=== PATIENT | male | born 1940 | race Caucasian/White ===

== ENCOUNTER 2017-06-05 12:02 | Inpatient (IN) ==
--- NOTE | 2017-06-05 12:21 | Emergency Department Note ---
Disposition Clinical Impression: Septic shock Pneumonia Qualifiers: Pneumonia type: due to unspecified organism Laterality: unspecified laterality Lung location: unspecified part of lung Qualified Code(s): J18.9 - Pneumonia, unspecified organism Disposition: Admitted As Inpatient Condition: Critical [facility]: [facility]Primary Care Provider[facility] - Forms: ED Satisfaction Letter Altered Mental Status HPI - General Chief Complaint: ED Weakness Stated Complaint: "family said unresponsive" Source: patient Mode of arrival: ambulatory Limitations: no limitations Nursing Notes Reviewed: Yes Vital Signs Reviewed: Yes - History of Present Illness HPI Narrative: Patient's brother provided the initial history states his brother seemed a little confused last night and went to bed when he awoke this morning a person lives with them went to check on his brother and had trouble waking him up so they called 911. On arrival the patient really cannot give us any information. MD complaint: altered mental status, decreased responsiveness - Related Data Allergies Allergy/AdvReac Type Severity Reaction Status Date / Time No Known Allergies Allergy Verified 04/13/17 17:45 Limitations: ROS unobtainable due to patients medical condition Past Medical History - Past Medical History Medical history: Reports: atrial fibrillation, hyperlipidemia, hypertension Psychiatric history: Reports: no psych history - Social History Smoking Status: Never smoker Smokeless Tobacco Status: No Alcohol use: Reports: occasionally Drug use: Reports: none Physical Exam - Expanded Neurological Exam Coma Scale Eye Opening: To Voice Coma Scale Motor Response: Localizes to Pain Coma Scale Verbal Response: Inappropriate Coma Scale Total: 11 Course - Reevaluation(s) Reevaluation #1: Now awake and alert I asked him how he was feeling he states "I am alive" with a little giggle. He is now answering questions talked about the workup thus for far I told him he would need hospitalization he states he was not happy about this. He is answering questions besides feeling weak he does not have any acute complaints denies any chest pain nausea or abdominal pain. Time: 14:36 Reevaluation #2: Reevaluation patient is now normotensive map greater than 65 normal mental status he is alert and oriented 3 normal capillary refill nondiaphoretic pleasant cooperative overall status much improved. Time: 15:25 Vital Signs Temperature 97.6 F 06/05/17 12:08 Pulse Rate 62 06/05/17 12:08 Respiratory Rate 16 06/05/17 12:08 Blood Pressure 73/46 06/05/17 12:08 O2 Sat by Pulse Oximetry 94 06/05/17 12:08 Temperature 97.6 F 06/05/17 12:08 Pulse Rate 79 06/05/17 15:00 Respiratory Rate 16 06/05/17 15:00 Blood Pressure 89/51 06/05/17 15:00 O2 Sat by Pulse Oximetry 95 06/05/17 15:00 Oxygen Delivery Oxygen Delivery Room Air Procedures - Central Line Placement Right IJ Central Line Inserted*: Yes Central Line Insertion: emergent Procedural Pause: verify patient name and date of , timeout performed per policy, arturo and assess the site, assemble equipment and verify supplies, perform hand hygiene Patient Placed on Monitor/Pulse Ox: Yes During the Procedure: clinician is wearing sterile gloves, cap, mask,& gown during insertion, sterile field and sterile technique are maintained, patient's face is covered with drape or mask and wearing a cap, everyone in room is wearing a mask Central Line Prep: Chlorhexidine scrub Prep the Procedure Site: apply chloraprep to the skin using a back and forth scrubbing motion, apply chloraprep for 30 seconds (upper body), 1-2 min ( femoral sites), allow prep to dry, drape the patient with a full body drape Local Anesthetic: lidocaine 1% Amount of anesthesia used (mL): 5 Ultrasound Used for Placement: Yes Central Line Lumen Inserted: triple Post Procedure: sutured in place, good blood return, all ports aspirated, flushed, capped, sterile dressing applied, guide wire removed and visualized, dressing is dated Post Procedure X-Ray: tip of catheter in good position, no pneumothorax seen Patient Tolerated Procedure: well, no complications Complications: none Date: 06/05/17 Time: 14:41 Altered Mental Status - Lab Data Result diagrams: 06/05/17 13:16 06/05/17 12:32 Lab Results 06/05/17 06/05/17 06/05/17 Range/Units 12:32 12:32 12:32 WBC (4.3-11.1) K/mcL RBC (4.19-5.50) M/mcL Hgb (12.9-16.9) g/dL Hct (37.5-50.1) % MCV (83.0-100.0) fL MCH (28.0-33.3) pg MCHC (31.6-35.5) g/dL RDW (11.5-14.5) % Plt Count (140-400) K/mcL MPV (9.4-12.4) fL Immature Gran % (0-4) % Seg Neutrophils % % Lymphocytes % % Monocytes % % Eosinophils % % Basophils % % Neutrophils # (1.6-8.9) K/mcL Lymphocytes # (0.6-4.6) K/mcL Monocytes # (0.0-1.3) K/mcL Eosinophils # (0.0-0.6) K/mcL Basophils # (0.0-0.2) K/mcL PT 11.3 (9.4-12.1) Seconds INR 1.0 APTT 29.4 (26.0-36.0) Seconds Sodium 134 L (136-145) mEq/L Potassium 4.9 H (3.5-4.5) mEq/L Chloride 100 (98-109) mEq/L Carbon Dioxide 25 (19-29) mEq/L BUN 26 (8-26) mg/dL Creatinine 1.81 H (0.72-1.25) mg/dL Est GFR ( Amer) 44 L (> 60) Est GFR (Non-Af Amer) 37 L (> 60) BUN/Creatinine Ratio 14 (6-26) Glucose 233 H (70-99) mg/dL Calculated Osmolality 290 (280-300) Lactic Acid 2.6 H (0.5-2.2) mmol/L Calcium 9.5 (8.6-10.8) mg/dL Magnesium 2.0 (1.6-2.6) mg/dL Total Bilirubin 1.1 (0.2-1.2) mg/dL Direct Bilirubin 0.3 (0.0-0.5) mg/dL Indirect Bilirubin 0.8 (0.0-1.2) mg/dL AST 79 H (5-34) Units/L ALT 88 H (0-55) Units/L Alkaline Phosphatase 114 (38-126) Units/L Troponin I (0-0.03) ng/mL Serum Total Protein 8.3 (6.0-8.3) g/dL Albumin 3.4 L (3.5-5.0) g/dL Globulin 4.9 H (2.4-3.5) g/dL Albumin/Globulin Ratio 0.7 L (1.1-2.2) Urine Color (Yellow) Urine Clarity (Clear) Urine pH (5.0-8.0) pH Units Ur Specific [place] (1.010-1.025) Urine Protein (Neg-Trace) mg/dL Urine Glucose (UA) (Normal) mg/dL Urine Ketones (Negative) mg/dL Urine Blood (Negative) Urine Nitrite (Negative) Urine Bilirubin (Negative) Urine Urobilinogen (Normal) mg/dL Ur Leukocyte Esterase (Negative) Urine Microscopic RBC (0-3) per hpf Urine Microscopic WBC (0-3) per hpf Ur Squamous Epith Cells (None-Few) per lpf Ur Transition Epith Cell (None-Few) per hpf Ur Renal Epithelial Cell (None-Few) per hpf Urine Bacteria (None-Few) per hpf Hyaline Casts (None-Few) per lpf Ur Culture Indicated? (NO) 06/05/17 06/05/17 06/05/17 Range/Units 13:16 13:30 14:17 WBC 6.5 (4.3-11.1) K/mcL RBC 4.74 (4.19-5.50) M/mcL Hgb 15.0 (12.9-16.9) g/dL Hct 43.6 (37.5-50.1) % MCV 92.0 (83.0-100.0) fL MCH 31.6 (28.0-33.3) pg MCHC 34.4 (31.6-35.5) g/dL RDW 13.0 (11.5-14.5) % Plt Count 125 L (140-400) K/mcL MPV 10.5 (9.4-12.4) fL Immature Gran % 1.2 (0-4) % Seg Neutrophils % 60.8 % Lymphocytes % 26.9 % Monocytes % 9.4 % Eosinophils % 0.8 % Basophils % 0.9 % Neutrophils # 4.0 (1.6-8.9) K/mcL Lymphocytes # 1.8 (0.6-4.6) K/mcL Monocytes # 0.6 (0.0-1.3) K/mcL Eosinophils # 0.1 (0.0-0.6) K/mcL Basophils # 0.1 (0.0-0.2) K/mcL PT (9.4-12.1) Seconds INR APTT (26.0-36.0) Seconds Sodium (136-145) mEq/L Potassium (3.5-4.5) mEq/L Chloride (98-109) mEq/L Carbon Dioxide (19-29) mEq/L BUN (8-26) mg/dL Creatinine (0.72-1.25) mg/dL Est GFR ( Amer) (> 60) Est GFR (Non-Af Amer) (> 60) BUN/Creatinine Ratio (6-26) Glucose (70-99) mg/dL Calculated Osmolality (280-300) Lactic Acid 2.3 H (0.5-2.2) mmol/L Calcium (8.6-10.8) mg/dL Magnesium (1.6-2.6) mg/dL Total Bilirubin (0.2-1.2) mg/dL Direct Bilirubin (0.0-0.5) mg/dL Indirect Bilirubin (0.0-1.2) mg/dL AST (5-34) Units/L ALT (0-55) Units/L Alkaline Phosphatase (38-126) Units/L Troponin I (0-0.03) ng/mL Serum Total Protein (6.0-8.3) g/dL Albumin (3.5-5.0) g/dL Globulin (2.4-3.5) g/dL Albumin/Globulin Ratio (1.1-2.2) Urine Color Yellow (Yellow) Urine Clarity Clear (Clear) Urine pH 6.0 (5.0-8.0) pH Units Ur Specific [place] 1.018 (1.010-1.025) Urine Protein 100 H (Neg-Trace) mg/dL Urine Glucose (UA) 250 H (Normal) mg/dL Urine Ketones Negative (Negative) mg/dL Urine Blood Small H (Negative) Urine Nitrite Negative (Negative) Urine Bilirubin Negative (Negative) Urine Urobilinogen Normal (Normal) mg/dL Ur Leukocyte Esterase Negative (Negative) Urine Microscopic RBC 15-30 H (0-3) per hpf Urine Microscopic WBC 0-3 (0-3) per hpf Ur Squamous Epith Cells Many H (None-Few) per lpf Ur Transition Epith Cell Few (None-Few) per hpf Ur Renal Epithelial Cell Many H (None-Few) per hpf Urine Bacteria None Seen (None-Few) per hpf Hyaline Casts Few (None-Few) per lpf Ur Culture Indicated? NO (NO) 06/05/17 Range/Units 14:17 WBC (4.3-11.1) K/mcL RBC (4.19-5.50) M/mcL Hgb (12.9-16.9) g/dL Hct (37.5-50.1) % MCV (83.0-100.0) fL MCH (28.0-33.3) pg MCHC (31.6-35.5) g/dL RDW (11.5-14.5) % Plt Count (140-400) K/mcL MPV (9.4-12.4) fL Immature Gran % (0-4) % Seg Neutrophils % % Lymphocytes % % Monocytes % % Eosinophils % % Basophils % % Neutrophils # (1.6-8.9) K/mcL Lymphocytes # (0.6-4.6) K/mcL Monocytes # (0.0-1.3) K/mcL Eosinophils # (0.0-0.6) K/mcL Basophils # (0.0-0.2) K/mcL PT (9.4-12.1) Seconds INR APTT (26.0-36.0) Seconds Sodium (136-145) mEq/L Potassium (3.5-4.5) mEq/L Chloride (98-109) mEq/L Carbon Dioxide (19-29) mEq/L BUN (8-26) mg/dL Creatinine (0.72-1.25) mg/dL Est GFR ( Amer) (> 60) Est GFR (Non-Af Amer) (> 60) BUN/Creatinine Ratio (6-26) Glucose (70-99) mg/dL Calculated Osmolality (280-300) Lactic Acid (0.5-2.2) mmol/L Calcium (8.6-10.8) mg/dL Magnesium (1.6-2.6) mg/dL Total Bilirubin (0.2-1.2) mg/dL Direct Bilirubin (0.0-0.5) mg/dL Indirect Bilirubin (0.0-1.2) mg/dL AST (5-34) Units/L ALT (0-55) Units/L Alkaline Phosphatase (38-126) Units/L Troponin I 0.03 (0-0.03) ng/mL Serum Total Protein (6.0-8.3) g/dL Albumin (3.5-5.0) g/dL Globulin (2.4-3.5) g/dL Albumin/Globulin Ratio (1.1-2.2) Urine Color (Yellow) Urine Clarity (Clear) Urine pH (5.0-8.0) pH Units Ur Specific [place] (1.010-1.025) Urine Protein (Neg-Trace) mg/dL Urine Glucose (UA) (Normal) mg/dL Urine Ketones (Negative) mg/dL Urine Blood (Negative) Urine Nitrite (Negative) Urine Bilirubin (Negative) Urine Urobilinogen (Normal) mg/dL Ur Leukocyte Esterase (Negative) Urine Microscopic RBC (0-3) per hpf Urine Microscopic WBC (0-3) per hpf Ur Squamous Epith Cells (None-Few) per lpf Ur Transition Epith Cell (None-Few) per hpf Ur Renal Epithelial Cell (None-Few) per hpf Urine Bacteria (None-Few) per hpf Hyaline Casts (None-Few) per lpf Ur Culture Indicated? (NO) TPA Checklist - LKW: 3-4.5 hrs Add. Warnings/Precautions Patient/family understanding: The patient/family members have been counseled and understood the risk, benefit , and alternatives of treatment. Critical Care Time Critical Care Time: Yes Total Critical Care Time: 50 Attestation: Critical care performed: Time is exclusive of separately billable procedures. Time includes: direct patient care, patient reassessment, coordination of patient care, interpretation of data (laboratory data, radiology data, and respiratory data), review of patient's medical records, medical consultation and documentation of patient care. Procedures included in critical care time: Procedures excluded from critical care time:
[2017-06-05 12:48] LABS: Prothrombin Time 11.3 Seconds (9.4-12.1)
[2017-06-05 12:51] LABS: Activated Partial Thrombo Time 29.4 Seconds (26.0-36.0)
[2017-06-05 12:56] LABS: Albumin 3.4 g/dL (3.5-5.0); Albumin/Globulin Ratio 0.7 (1.1-2.2); Bilirubin,Direct 0.3 mg/dL (0.0-0.5); Bilirubin,Indirect 0.8 mg/dL (0.0-1.2); Bilirubin,Total 1.1 mg/dL (0.2-1.2); Calcium 9.5 mg/dL (8.6-10.8); Globulin 4.9 g/dL (2.4-3.5); Total Protein 8.3 g/dL (6.0-8.3)
[2017-06-05 12:57] LABS: Potassium 4.9 mEq/L (3.5-4.5)
[2017-06-05] MEDS: 0.9 % Sodium Chloride 1,000 ML IVC SCH ×4 (13:05→18:39)
[2017-06-05 13:38] LABS: Bilirubin,Urine Negative (Negative); Blood,Urine Small (Negative); Clarity,Urine Clear (Clear); Color,Urine Yellow (Yellow); Glucose,Urine (UA) 250 mg/dL (Normal); Ketones,Urine Negative (Negative); Leukocyte Esterase,Urine Negative (Negative); Nitrite,Urine Negative (Negative); Protein,Urine 100 mg/dL (Neg-Trace); Specific Gravity,Urine 1.018 (1.010-1.025); Urobilinogen,Urine Normal (Normal)
[2017-06-05 13:40] LABS: Bacteria,Urine None Seen per hpf (None-Few); Squamous Epithelial Cell,Urine Many per lpf (None-Few); WBC,Urine 0-3 per hpf (0-3)
[2017-06-05 13:42] LABS: Basophils # 0.1 K/mcL (0.0-0.2); Basophils % 0.9 %; Eosinophils # 0.1 K/mcL (0.0-0.6); Eosinophils % 0.8 %; Hematocrit 43.6 % (37.5-50.1); Immature Granulocytes % 1.2 % (0-4); Lymphocytes # 1.8 K/mcL (0.6-4.6); Lymphocytes % 26.9 %; Mean Corpuscular HGB Conc 34.4 g/dL (31.6-35.5); Mean Corpuscular Hemoglobin 31.6 pg (28.0-33.3); Mean Platelet Volume 10.5 fL (9.4-12.4); Monocytes # 0.6 K/mcL (0.0-1.3); Monocytes % 9.4 %; Platelet Count 125 K/mcL (140-400); Red Blood Count 4.74 M/mcL (4.19-5.50); Segmented Neutrophils % 60.8 %
[2017-06-05 13:59] LABS: Renal Epithelial Cells,Urine Many per hpf (None-Few); Transitional Epi Cells,Urine Few per hpf (None-Few)
[2017-06-05 14:00] LABS: RBC,Urine 15-30 per hpf (0-3)
[2017-06-05 14:02] LABS: Hyaline Casts,Urine Few per lpf (None-Few)
[2017-06-05] MEDS ORDERED: Norepinephrine 4 MG in D5% in Water 250 ML IVC SCH (14:15)
[2017-06-05] MEDS ORDERED: Hydrocortisone Sodium Succ 100 MG/2 ML VIAL IVP ONE (14:19)
[2017-06-05] MEDS ORDERED: Levofloxacin 750 MG/150 ML 750 MG/150 ML BAG IVPB ONE (14:28)
[2017-06-05] MEDS ORDERED: 0.9 % Sodium Chloride 1,000 ML IVC ONE (14:53)
[2017-06-05] MEDS ORDERED: *HR* Morphine 2 MG/ML SYRINGE IVP PRN (17:17)
[2017-06-05] MEDS ORDERED: *HR* HYDROcodone/Acet 5/325 mg TABLET PO PRN (17:17)
[2017-06-05] MEDS ORDERED: Naloxone 0.4 MG/ML INJ IVP PRN (17:17)
[2017-06-05] MEDS ORDERED: Acetaminophen 325 MG TABLET PO PRN (17:17)
[2017-06-05] MEDS ORDERED: Ondansetron 4 MG/2 ML VIAL IVP PRN (17:17)
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
[2017-06-05] MEDS ORDERED: D5% in Water 1,000 ML IVC PRN (17:59)
[2017-06-05] MEDS ORDERED: Dextrose Gel 15 GM PO PRN ×2 (17:59)
[2017-06-05] MEDS ORDERED: *HR* Dextrose 50 % in Water (Syg) 50 ML SYRINGE IVP PRN (17:59)
[2017-06-05] MEDS: Insulin LISPRO 300 UNITS/3 ML VIAL SQ SCH (18:32)
[2017-06-05] MEDS: Ipratropium/Albuterol Neb 3 ML IH SCH ×2 (20:06→23:42)
[2017-06-05 20:15] LABS: Amphetamine Screen,Urine Negative ng/mL (Cutoff=1000); Barbiturate Screen,Urine Negative ng/mL (Cutoff=200); Benzodiazepines Screen,Urine Negative ng/mL (Cutoff=200); Cannabinoid Screen,Urine Negative ng/mL (Cutoff = 50); Cocaine Screen,Urine Negative ng/mL (Cutoff= 300); Opiate Screen,Urine Negative ng/mL (Cutoff=300); Phencyclidine Screen,Urine Negative ng/mL (Cutoff=25)
[2017-06-05 20:22] LABS: Bilirubin,Urine Negative (Negative); Blood,Urine Large (Negative); Clarity,Urine Cloudy (Clear); Color,Urine Yellow (Yellow); Glucose,Urine (UA) 250 mg/dL (Normal); Ketones,Urine Negative (Negative); Leukocyte Esterase,Urine Negative (Negative); Nitrite,Urine Negative (Negative); Protein,Urine >=300 mg/dL (Neg-Trace); Specific Gravity,Urine 1.025 (1.010-1.025); Urobilinogen,Urine Normal (Normal)
[2017-06-05] MEDS ORDERED: Insulin LISPRO 300 UNITS/3 ML VIAL SQ SCH (21:00)
[2017-06-06] MEDS: Ipratropium/Albuterol Neb 3 ML IH SCH ×3 (03:43→11:12)
[2017-06-06] MEDS: 0.9 % Sodium Chloride 1,000 ML IVC SCH (05:14)
[2017-06-06] MEDS: Insulin LISPRO 300 UNITS/3 ML VIAL SQ SCH (07:29)
[2017-06-06] MEDS ORDERED: *HR* Digoxin 0.5 MG/2 ML AMPUL IVP ONE (08:57)
[2017-06-06] MEDS ORDERED: Cholecalciferol (D-3) 1,000 UNIT TABLET PO SCH (09:00)
[2017-06-06] MEDS ORDERED: Pantoprazole 40 MG VIAL IVP SCH (09:00)
[2017-06-06] MEDS ORDERED: Aspirin Enteric Coated 81 MG Tablet PO SCH (09:00)
[2017-06-06 09:46] LABS: Albumin 2.9 g/dL (3.5-5.0); Albumin/Globulin Ratio 0.8 (1.1-2.2); Basophils % 0.4 %; Bilirubin,Direct 0.3 mg/dL (0.0-0.5); Bilirubin,Indirect 0.4 mg/dL (0.0-1.2); Bilirubin,Total 0.7 mg/dL (0.2-1.2); Eosinophils # 0.1 K/mcL (0.0-0.6); Eosinophils % 0.6 %; Globulin 3.7 g/dL (2.4-3.5); Hemoglobin A1C 9.2 %; Immature Granulocytes % 1.1 % (0-4); Lymphocytes # 1.9 K/mcL (0.6-4.6); Lymphocytes % 22.7 %; Mean Corpuscular HGB Conc 34.1 g/dL (31.6-35.5); Mean Corpuscular Hemoglobin 31.8 pg (28.0-33.3); Mean Corpuscular Volume 93.2 fL (83.0-100.0); Mean Platelet Volume 10.7 fL (9.4-12.4); Monocytes # 0.6 K/mcL (0.0-1.3); Monocytes % 7.9 %; Neutrophils # 5.5 K/mcL (1.6-8.9); Platelet Count 131 K/mcL (140-400); Red Blood Count 4.72 M/mcL (4.19-5.50); Red Cell Distribution Width 13.2 % (11.5-14.5); Segmented Neutrophils % 67.3 %
[2017-06-06 09:47] LABS: Calcium 8.5 mg/dL (8.6-10.8); Chol/HDL Ratio 6.2 (0-4.9); Magnesium 1.5 mg/dL (1.6-2.6); Total Protein 6.6 g/dL (6.0-8.3)
[2017-06-06 09:48] LABS: Potassium 3.6 mEq/L (3.5-4.5)
[2017-06-06 11:29] VITALS: BP 105/75
--- NOTE | 2017-06-06 14:46 | Electrocardiograph Report ---
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
--- NOTE | 2017-06-06 15:45 | Electrocardiograph Report ---
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
[2017-06-06] MEDS ORDERED: Levofloxacin 750 MG/150 ML 750 MG/150 ML BAG IVPB SCH (16:00)
--- NOTE | 2017-06-06 19:19 | Discharge Summary ---
Date of Encounter: 06/06/17 Time of Encounter: 10:25 - Discharge Diagnosis (1) Atrial fibrillation with RVR Priority: Primary Status: Acute Comments: IV 0.25 mg digoxin - blood pressure too low for IV Cardizem EKG - atrial fibrillation with RVR Patient left AGAINST MEDICAL ADVICE before any further evaluation or management (2) Pneumonia Priority: Primary Status: Acute Comments: Bilateral airspace disease compatible with mild edema and pneumonia Started on IV Rocephin and IV Levaquin and DuoNeb breathing treatment Qualifiers: Pneumonia type: due to unspecified organism Laterality: unspecified laterality Lung location: unspecified part of lung Qualified Code(s): J18.9 - Pneumonia, unspecified organism (3) Septic shock Priority: Primary Status: Acute Comments: Blood pressure continues to be low likely secondary to sepsis due to pneumonia - IV fluids continued The patient left AGAINST MEDICAL ADVICE even though he was hypotensive - Discharge Medications Home Medications: Aspirin Enteric Coated [Aspirin EC] 81 mg PO BID 06/05/17 [History] Atorvastatin [Lipitor] 10 mg PO HS 06/05/17 [History] Cholecalciferol (D-3) [Vitamin D] 2,000 unit PO DAILY 06/05/17 [History] GlipiZIDE [Glipizide Xl] 5 BID 06/05/17 [History] Lidocaine 4% CRM (LMX) [Lmx 4] 1 appl TP BID 06/05/17 [History] Lisinopril [Zestril] 10 mg PO DAILY 06/05/17 [History] Metformin HCl [Glucophage Xr] 750 mg PO DAILY 06/05/17 [History] Metoprolol [Lopressor] 25 mg PO BID 06/05/17 [History] Terazosin [Hytrin] 1 mg PO DAILY 06/05/17 [History] Allergies/Adverse Reactions: IV Contrast Adverse Reaction (Uncoded 06/05/17 18:35) Anaphylaxis Procedures/tests Complete & Pending: Procedures Performed prior 72 hours Category Date Time Status CT head/brain wo con [CT] Stat Cat Scan 06/05/17 18:32 Completed ECG 12 lead ECG [ECG] Routine Y 06/06/17 08:45 Completed EV limited echocardiogram Routine Y 06/06/17 08:00 Completed Date of admission: 06/05/17 17:17 [facility] care physician: [facility] Consults: 06/05/17 18:31 Consult to Polysomnograph Tech [CONS] Routine Reason for SW Consult: discharge planning Anticipated date of discharge: 06/06/17 - Patient Status Disposition: Left Against Medical Advice Condition: Critical Overall status at discharge: patient is not back to baseline - Discharge Instructions Follow Up With: HAO,PCP [Primary Care Provider] - 06/12/17 11:00 am - Diet and Activity Activity: increase activity as tolerated Diet: low fat, low cholesterol, low salt diet Hospital course: Mr. Subramanian is a 76 year old male with past medical history of atrial fibrillation , hyperlipidemia, hypertension. He presented to the ED with complaints of generalized weakness and altered mental status. He was brought in by family stating he was unresponsive. Patient was confused initially when he was in the ED. He was found to have some pulmonary edema and also probable pneumonia. We will start on IV antibiotics. He was also started on IV fluids because of hypotension. A central line was placed. He was given fluid boluses as well. Central line had to be eventually taken out because it was out of position. Peripheral line was established. 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 Echocardiogram could not accurately estimate LVEF due to A. fib with RVR. Patient was given 1 dose of IV 0.25 mg digoxin for A. fib with RVR. His blood pressure was too low for IV Cardizem. Patient then stated that he wanted to leave AGAINST MEDICAL ADVICE. He wanted to go and see his physicians at the [place]. Patient was explained by RN and myself regarding his guarded condition and guarded prognosis. He stated that he understood but decided to sign out AMA. Patient called his family to pick him up. Guarded condition. - Time Spent with Patient Total time spent providing and/or coordinating discharge services: Less than 30 minutes - Constitutional Vitals: Temp Pulse Resp BP Pulse Ox 98.1 F 138 15 105/75 96 06/06/17 11:24 06/06/17 11:24 06/06/17 11:24 06/06/17 11:24 06/06/17 11:24 General appearance: Present: A&O X 3, pleasant, no acute distress, answers questions appropriately. Absent: cooperative - Head Head exam: Present: atraumatic - Eye Eye exam: Present: EOMI - ENT ENT exam: Present: mucous membranes dry - Neck Neck exam general surgery: Present: supple - Respiratory Respiratory exam: Present: decreased breath sounds (Slightly decreased). Absent : rales, rhonchi, wheezes, tachypnea - Cardiovascular Cardiovascular exam: Present: irregular rhythm, +S1, +S2, systolic murmur, tachycardia - GI/Abdominal GI/Abdominal exam: Present: soft. Absent: distended, firm, guarding, tenderness - Extremities Exam Extremities exam: Present: pedal edema (Mild bilateral lower leg), radial pulses palpable and symmetrical. Absent: cyanotic - Neurological Exam Neurological exam: Present: alert, oriented X3, no focal deficits. Absent: facial droop, speech deficit
== END 2017-06-06 12:24 | disposition left against medical advice (07) | DRG 871 ==
LOC: 2NNU 12:02 → EMEROO 12:02 → 2NNU 18:00
PROVIDERS: ADMIT Internal Medicine; ATTEND Family Medicine

== ENCOUNTER 2017-10-13 20:04 | Inpatient (IN) ==
[2017-10-13] MEDS ORDERED: 0.9 % Sodium Chloride 1,000 ML IVC ONE (20:11)
--- NOTE | 2017-10-13 20:18 | Emergency Department Note ---
Disposition Clinical Impression: Atrial fibrillation with RVR, Influenza Disposition: Admitted As Inpatient Condition: Good General Adult HPI - General Chief complaint: ED Arrhythmia/Palpitations Stated complaint: afib/RVR Time Seen by Provider: 10/13/17 20:11 Source: patient, EMS Mode of arrival: EMS Limitations: altered mental status Nursing Notes Reviewed: Yes Vital Signs Reviewed: Yes - History of Present Illness HPI Narrative: 77-year-old male history of atrial fibrillation on Eliquis, hypertension, hyperlipidemia, diabetes who presents to the ER via EMS from the [facility] due to weakness and atrial fibrillation with rapid ventricular response. Patient reports he has had a cough for 3 weeks. States he has felt weak. He went there today because of generalized weakness. He was found to be in A. fib RVR. He was given 20 mg of IV Cardizem without any change in his rate. Patient was sent here for evaluation. He denies any fevers nausea vomiting diarrhea chest or abdominal pain as well as shortness of breath at home. States he has had a cough. He has felt generally weak for several days. No other complaints. Pt Subjective Complaint: Weakness Onset (ago): day(s) Radiation: non-radiation Pain Scale: 0 Improves with: nothing Worsens with: nothing Associated symptoms: Reports: cough Treatments Prior to Arrival: other (cardizem 20mg) - Related Data Home Medications Medication Instructions Recorded Confirmed Aspirin Enteric Coated [Aspirin EC] 81 mg PO BID 06/05/17 06/05/17 Atorvastatin [Lipitor] 10 mg PO HS 06/05/17 06/05/17 Cholecalciferol (D-3) [Vitamin D] 2,000 unit PO DAILY 06/05/17 06/05/17 GlipiZIDE [Glipizide Xl] 5 BID 06/05/17 Lidocaine 4% CRM (LMX) [Lmx 4] 1 appl TP BID 06/05/17 06/05/17 Lisinopril [Zestril] 10 mg PO DAILY 06/05/17 06/05/17 Metformin HCl [Glucophage Xr] 750 mg PO DAILY 06/05/17 06/05/17 Metoprolol [Lopressor] 25 mg PO BID 06/05/17 06/05/17 Terazosin [Hytrin] 1 mg PO DAILY 06/05/17 06/05/17 Allergies Allergy/AdvReac Type Severity Reaction Status Date / Time IV Contrast AdvReac Anaphylaxis Uncoded 06/05/17 18:35 All systems ED: reviewed and negative except as stated. Constitutional: Denies: fever Cardiovascular: Reports: palpitations. Denies: chest pain Respiratory: Reports: cough. Denies: dyspnea Gastrointestinal: Denies: abdominal pain, nausea, vomiting, diarrhea Past Medical History - Past Medical History Attestation: Yes The following information was validated with the patient. Source: patient, old records reviewed Medical history: Reports: atrial fibrillation, diabetes, hyperlipidemia, hypertension, renal disease Psychiatric history: Reports: no psych history - Social History Smoking Status: Former smoker Smokeless Tobacco Status: No Alcohol use: Reports: occasionally Drug use: Reports: none Physical Exam - General Limitations: altered mental status General appearance: alert, obese - Head Head exam: atraumatic, normocephalic - Eye Eye exam: Present: normal appearance - ENT ENT exam: normal exam - Neck Neck exam: Present: normal inspection, full ROM - Chest Chest inspection: Present: normal inspection, symmetric chest wall rise - Respiratory Respiratory exam: Present: normal lung sounds bilaterally - Cardiovascular Cardiovascular exam: Present: tachycardia, irregular rhythm, normal heart sounds - Abdominal Exam Abdominal exam: Present: soft, Non-Tender. Absent: tenderness - Extremities Exam Extremities exam: Present: normal inspection, full ROM - Expanded Upper Extremity Exam Shoulder exam: Present: normal inspection, full ROM Arm exam: Present: normal inspection, full ROM Elbow exam: Present: normal inspection, full ROM Forearm/Wrist exam: Present: normal inspection, full ROM Hand exam: Present: normal inspection, full ROM Vascular exam: Normal: radial pulse - Expanded Lower Extremity Exam Hip/Pelvis exam: Present: normal inspection, full ROM Upper leg exam: Present: normal inspection, full ROM Knee exam: Present: normal inspection, full ROM Lower leg exam: Present: normal inspection, full ROM Ankle exam: Present: normal inspection, full ROM Foot/toe exam: Present: normal inspection, full ROM - Neurological Exam Neurological exam: Present: alert, CN II-XII intact. Absent: motor sensory deficit - Expanded Neurological Exam Patient oriented to: Present: person, place Speech: Present: fluid speech Cranial nerves: EOM function (II, III, IV, ): Normal, facial sensation (V): Normal, spinal accessory function (XI): Normal, tongue deviation (XII): Normal Motor strength - LUE: 5/5 Motor strength - RUE: 5/5 Motor strength - LLE: 5/5 Motor strength - RLE: 5/5 Sensory exam upper extremity: light touch: Normal Sensory exam lower extremity: light touch: Normal Coma Scale Eye Opening: Spontaneous Coma Scale Motor Response: Obeys Commands Coma Scale Verbal Response: Oriented Coma Scale Total: 15 - Psychiatric Psychiatric exam: Present: normal affect - Skin Skin exam: Present: warm, dry, intact Course Course Narrative: Patient seen and examined. Vital signs reviewed. He is noted to be tachycardic in the 160s and hypertensive. Also febrile at 101.8. He received 20 mg of Cardizem prior to arrival. We will repeat bolus here 25 mg as well as start a drip. We will also obtain an EKG, chest x-ray, labs including troponin , lactate and blood cultures as he meets sepsis criteria. - Reevaluation(s) Reevaluation #1: Patient's heart rate returned into the 130s. We increased his Cardizem drip to 20. He is currently running with a heart rate in the 80s. Vital Signs Temperature 101.8 F H 10/13/17 20:06 Pulse Rate 164 10/13/17 20:06 Respiratory Rate 20 10/13/17 20:06 Blood Pressure 179/119 10/13/17 20:06 O2 Sat by Pulse Oximetry 96 10/13/17 20:06 Temperature 100.4 F H 10/13/17 22:41 Pulse Rate 92 10/14/17 00:00 Respiratory Rate 16 10/14/17 00:18 Blood Pressure 139/71 10/14/17 00:18 O2 Sat by Pulse Oximetry 90 10/14/17 00:00 Oxygen Delivery Oxygen Delivery Room Air Medical Decision Making - MDM Narrative Medical decision making narrative: 77-year-old male presents to the ER from the [facility] due to A. fib RVR and generalized weakness. Noted to be with a heart rate of 160s here with a stable blood pressure. Also found to be febrile on arrival. He is positive for influenza A. EKG demonstrates atrial fibrillation with rapid ventricular response. Chest x-ray with pulmonary vascular congestion and cardiomegaly. He was given Cardizem 25 mg and started on a Cardizem drip. Labs reviewed and unremarkable. He is accepted to the hospitalist service for influenza, atrial fibrillation with rapid ventricular response. - Lab Data Lab results reviewed: Yes I reviewed the patient's lab results. Result diagrams: 10/13/17 20:20 10/13/17 20:20 Lab Results 10/13/17 10/13/17 10/13/17 Range/Units 20:20 20:20 20:20 WBC 7.9 (4.3-11.1) K/mcL RBC 5.02 (4.19-5.50) M/mcL Hgb 16.2 (12.9-16.9) g/dL Hct 46.2 (37.5-50.1) % MCV 92.0 (83.0-100.0) fL MCH 32.3 (28.0-33.3) pg MCHC 35.1 (31.6-35.5) g/dL RDW 13.7 (11.5-14.5) % Plt Count 183 (140-400) K/mcL MPV 10.2 (9.4-12.4) fL Immature Gran % 1.0 (0-4) % Seg Neutrophils % 78.7 % Lymphocytes % 10.8 % Monocytes % 8.3 % Eosinophils % 0.4 % Basophils % 0.8 % Neutrophils # 6.3 (1.6-8.9) K/mcL Lymphocytes # 0.9 (0.6-4.6) K/mcL Monocytes # 0.7 (0.0-1.3) K/mcL Eosinophils # 0.0 (0.0-0.6) K/mcL Basophils # 0.1 (0.0-0.2) K/mcL PT 12.1 (9.4-12.1) Seconds INR 1.1 APTT 32.3 (26.0-36.0) Seconds Sodium 137 (136-145) mEq/L Potassium 3.4 L (3.5-5.1) mEq/L Chloride 106 (98-107) mEq/L Carbon Dioxide 21 L (23-29) mEq/L BUN 14 (8-23) mg/dL Creatinine 1.00 (0.70-1.30) mg/dL Est GFR ( Amer) > 60 (> 60) Est GFR (Non-Af Amer) > 60 (> 60) BUN/Creatinine Ratio 14 (6-26) Glucose 180 H (70-105) mg/dL Calculated Osmolality 289 (280-300) Lactic Acid (0.5-2.2) mmol/L Calcium 8.8 (8.6-10.3) mg/dL Phosphorus 1.9 L (2.7-4.5) mg/dL Magnesium 1.3 L (1.6-2.6) mg/dL Total Bilirubin 0.9 (0.3-1.0) mg/dL Direct Bilirubin 0.3 H (0.0-0.2) mg/dL Indirect Bilirubin 0.6 (0.0-1.2) mg/dL AST 96 H (13-39) Units/L ALT 75 H (7-52) Units/L Alkaline Phosphatase 85 (34-104) Units/L Troponin I (< 0.04) ng/mL B-Natriuretic Peptide (Less than 100) pg/mL Serum Total Protein 7.1 (6.4-8.9) g/dL Albumin 3.8 (3.5-5.7) g/dL Globulin 3.3 (2.4-3.5) g/dL Albumin/Globulin Ratio 1.2 (1.1-2.2) Urine Color (Yellow) Urine Clarity (Clear) Urine pH (5.0-8.0) pH Units Ur Specific [place] (1.010-1.025) Urine Protein (Neg-Trace) mg/dL Urine Glucose (UA) (Normal) mg/dL Urine Ketones (Negative) mg/dL Urine Blood (Negative) Urine Nitrite (Negative) Urine Bilirubin (Negative) Urine Urobilinogen (Normal) mg/dL Ur Leukocyte Esterase (Negative) Urine Microscopic RBC (0-3) per hpf Urine Microscopic WBC (0-3) per hpf Ur Squamous Epith Cells (None-Few) per lpf Ur Renal Epithelial Cell (None-Few) per hpf Amorphous Sediment (Few) Urine Bacteria (None-Few) per hpf Hyaline Casts (None-Few) per lpf Ur Culture Indicated? (NO) 10/13/17 10/13/17 10/13/17 Range/Units 20:20 20:20 20:20 WBC (4.3-11.1) K/mcL RBC (4.19-5.50) M/mcL Hgb (12.9-16.9) g/dL Hct (37.5-50.1) % MCV (83.0-100.0) fL MCH (28.0-33.3) pg MCHC (31.6-35.5) g/dL RDW (11.5-14.5) % Plt Count (140-400) K/mcL MPV (9.4-12.4) fL Immature Gran % (0-4) % Seg Neutrophils % % Lymphocytes % % Monocytes % % Eosinophils % % Basophils % % Neutrophils # (1.6-8.9) K/mcL Lymphocytes # (0.6-4.6) K/mcL Monocytes # (0.0-1.3) K/mcL Eosinophils # (0.0-0.6) K/mcL Basophils # (0.0-0.2) K/mcL PT (9.4-12.1) Seconds INR APTT (26.0-36.0) Seconds Sodium (136-145) mEq/L Potassium (3.5-5.1) mEq/L Chloride (98-107) mEq/L Carbon Dioxide (23-29) mEq/L BUN (8-23) mg/dL Creatinine (0.70-1.30) mg/dL Est GFR ( Amer) (> 60) Est GFR (Non-Af Amer) (> 60) BUN/Creatinine Ratio (6-26) Glucose (70-105) mg/dL Calculated Osmolality (280-300) Lactic Acid 1.8 (0.5-2.2) mmol/L Calcium (8.6-10.3) mg/dL Phosphorus (2.7-4.5) mg/dL Magnesium (1.6-2.6) mg/dL Total Bilirubin (0.3-1.0) mg/dL Direct Bilirubin (0.0-0.2) mg/dL Indirect Bilirubin (0.0-1.2) mg/dL AST (13-39) Units/L ALT (7-52) Units/L Alkaline Phosphatase (34-104) Units/L Troponin I < 0.03 (< 0.04) ng/mL B-Natriuretic Peptide 137 H (Less than 100) pg/mL Serum Total Protein (6.4-8.9) g/dL Albumin (3.5-5.7) g/dL Globulin (2.4-3.5) g/dL Albumin/Globulin Ratio (1.1-2.2) Urine Color (Yellow) Urine Clarity (Clear) Urine pH (5.0-8.0) pH Units Ur Specific [place] (1.010-1.025) Urine Protein (Neg-Trace) mg/dL Urine Glucose (UA) (Normal) mg/dL Urine Ketones (Negative) mg/dL Urine Blood (Negative) Urine Nitrite (Negative) Urine Bilirubin (Negative) Urine Urobilinogen (Normal) mg/dL Ur Leukocyte Esterase (Negative) Urine Microscopic RBC (0-3) per hpf Urine Microscopic WBC (0-3) per hpf Ur Squamous Epith Cells (None-Few) per lpf Ur Renal Epithelial Cell (None-Few) per hpf Amorphous Sediment (Few) Urine Bacteria (None-Few) per hpf Hyaline Casts (None-Few) per lpf Ur Culture Indicated? (NO) 10/13/17 Range/Units 20:40 WBC (4.3-11.1) K/mcL RBC (4.19-5.50) M/mcL Hgb (12.9-16.9) g/dL Hct (37.5-50.1) % MCV (83.0-100.0) fL MCH (28.0-33.3) pg MCHC (31.6-35.5) g/dL RDW (11.5-14.5) % Plt Count (140-400) K/mcL MPV (9.4-12.4) fL Immature Gran % (0-4) % Seg Neutrophils % % Lymphocytes % % Monocytes % % Eosinophils % % Basophils % % Neutrophils # (1.6-8.9) K/mcL Lymphocytes # (0.6-4.6) K/mcL Monocytes # (0.0-1.3) K/mcL Eosinophils # (0.0-0.6) K/mcL Basophils # (0.0-0.2) K/mcL PT (9.4-12.1) Seconds INR APTT (26.0-36.0) Seconds Sodium (136-145) mEq/L Potassium (3.5-5.1) mEq/L Chloride (98-107) mEq/L Carbon Dioxide (23-29) mEq/L BUN (8-23) mg/dL Creatinine (0.70-1.30) mg/dL Est GFR ( Amer) (> 60) Est GFR (Non-Af Amer) (> 60) BUN/Creatinine Ratio (6-26) Glucose (70-105) mg/dL Calculated Osmolality (280-300) Lactic Acid (0.5-2.2) mmol/L Calcium (8.6-10.3) mg/dL Phosphorus (2.7-4.5) mg/dL Magnesium (1.6-2.6) mg/dL Total Bilirubin (0.3-1.0) mg/dL Direct Bilirubin (0.0-0.2) mg/dL Indirect Bilirubin (0.0-1.2) mg/dL AST (13-39) Units/L ALT (7-52) Units/L Alkaline Phosphatase (34-104) Units/L Troponin I (< 0.04) ng/mL B-Natriuretic Peptide (Less than 100) pg/mL Serum Total Protein (6.4-8.9) g/dL Albumin (3.5-5.7) g/dL Globulin (2.4-3.5) g/dL Albumin/Globulin Ratio (1.1-2.2) Urine Color Yellow (Yellow) Urine Clarity Cloudy A (Clear) Urine pH 5.5 (5.0-8.0) pH Units Ur Specific [place] 1.023 (1.010-1.025) Urine Protein >=300 H (Neg-Trace) mg/dL Urine Glucose (UA) 250 H (Normal) mg/dL Urine Ketones Negative (Negative) mg/dL Urine Blood Small H (Negative) Urine Nitrite Negative (Negative) Urine Bilirubin Negative (Negative) Urine Urobilinogen Normal (Normal) mg/dL Ur Leukocyte Esterase Negative (Negative) Urine Microscopic RBC 5-15 H (0-3) per hpf Urine Microscopic WBC 0-3 (0-3) per hpf Ur Squamous Epith Cells Many H (None-Few) per lpf Ur Renal Epithelial Cell Few (None-Few) per hpf Amorphous Sediment Many H (Few) Urine Bacteria None Seen (None-Few) per hpf Hyaline Casts None Seen (None-Few) per lpf Ur Culture Indicated? NO (NO) - Radiology Data Radiology results reviewed: Yes I reviewed the patient's radiology results. Chest X-Ray 10/13/17 20:52 IMPRESSION: Mild cardiomegaly and pulmonary venous congestion D/ / 10/13/2017 21:58:32 Dale Delacruz MD / shima Interpreting Provider: Dale Delacruz MD - EKG Data EKG #1 EKG attestation: Yes I reviewed and interpreted this EKG. EKG results narrative: EKG demonstrates atrial fibrillation with a rate of 160. Left axis deviation. Normal intervals. Poor R-wave progression. No gross ST elevations or depressions. No acute ischemic findings. No significant changes from previous EKG dated 06/06/17. Critical Care Time Critical Care Time: Yes Total Critical Care Time: 40 Attestation: Critical care performed: Time is exclusive of separately billable procedures. Time includes: direct patient care, patient reassessment, coordination of patient care, interpretation of data (laboratory data, radiology data, and respiratory data), review of patient's medical records, medical consultation and documentation of patient care. Procedures included in critical care time: Procedures excluded from critical care time: S.B.A.Leonor - S.B.A.Leonor Situation: Demographics, MOA Background: Presenting Complaint, Relevant PMH, Meds, & Allergies Assessment: Vital Signs, Course and respsone to treatment, Exam Concerns, Patient/Family Expectation, Pertinant Lab Results Recommendation: Barrier(s) to disposition, Recommendation based on pending studies, treatments, or consults S.B.A.RNayan Report Given to: Dr. Pierre Mullen Repor Time: 23:51 Attestation Statement - Attestation Attestation: I, Matt Garcia MD, personally evaluated this patient and discussed their management with the resident physician. I reviewed the resident's note and agree with the documented findings, medical decision making, and plan of care. 77-year-old male who is transferred here from the OR for atrial fibrillation with RVR. Patient has a history of chronic atrial fibrillation. He apparently lives with his brother who dumped him off at the OR and told them to take care of him. Patient is alert but is very hard of hearing. He is a very poor historian and pretty much just answers yes no questions. He denies any chest pain or shortness of breath. He does complain of a cough. Patient noted to be febrile. On examination patient is a well-developed well-nourished elderly male in no acute distress. He is alert. There is no cyanosis or diaphoresis. Breath sounds are clear and equal bilaterally. Heart is irregularly irregular and very tachycardic. Abdomen is soft and nontender with normal bowel sounds. Patient received a Cardizem bolus at the OR but still has a heart rate of about 160 on arrival here. He received another bolus of Cardizem. He was placed on a Cardizem drip. He was febrile here and his workup revealed influenza type A. Labs reviewed. Chest x-ray showed mild cardiomegaly and pulmonary venous congestion. KG shows atrial fibrillation with RVR. The hospitalist, Dr. Jay, was consulted and accepted admission of the patient.
[2017-10-13 20:38] LABS: Basophils # 0.1 K/mcL (0.0-0.2); Basophils % 0.8 %; Eosinophils % 0.4 %; Hematocrit 46.2 % (37.5-50.1); Hemoglobin 16.2 g/dL (12.9-16.9); Lymphocytes # 0.9 K/mcL (0.6-4.6); Lymphocytes % 10.8 %; Mean Corpuscular HGB Conc 35.1 g/dL (31.6-35.5); Mean Corpuscular Hemoglobin 32.3 pg (28.0-33.3); Mean Platelet Volume 10.2 fL (9.4-12.4); Monocytes # 0.7 K/mcL (0.0-1.3); Monocytes % 8.3 %; Neutrophils # 6.3 K/mcL (1.6-8.9); Platelet Count 183 K/mcL (140-400); Red Blood Count 5.02 M/mcL (4.19-5.50); Red Cell Distribution Width 13.7 % (11.5-14.5); Segmented Neutrophils % 78.7 %
[2017-10-13 20:45] LABS: INR 1.1; Prothrombin Time 12.1 Seconds (9.4-12.1)
[2017-10-13 20:48] LABS: Activated Partial Thrombo Time 32.3 Seconds (26.0-36.0)
[2017-10-13 20:54] LABS: Alanine Aminotransferase 75 Units/L (7-52); Albumin 3.8 g/dL (3.5-5.7); Albumin/Globulin Ratio 1.2 (1.1-2.2); Alkaline Phosphatase 85 Units/L (34-104); Aspartate Amino Transferase 96 Units/L (13-39); BUN/Creatinine Ratio 14 (6-26); Bilirubin,Direct 0.3 mg/dL (0.0-0.2); Bilirubin,Indirect 0.6 mg/dL (0.0-1.2); Bilirubin,Total 0.9 mg/dL (0.3-1.0); Blood Urea Nitrogen 14 mg/dL (8-23); Calcium 8.8 mg/dL (8.6-10.3); Carbon Dioxide 21 mEq/L (23-29); Chloride 106 mEq/L (98-107); Globulin 3.3 g/dL (2.4-3.5); Glucose 180 mg/dL (70-105); Magnesium 1.3 mg/dL (1.6-2.6); Osmolality,Calculated 289 (280-300); Phosphorous 1.9 mg/dL (2.7-4.5); Potassium 3.4 mEq/L (3.5-5.1); Sodium 137 mEq/L (136-145); Total Protein 7.1 g/dL (6.4-8.9); eGFR For African Americans > 60 (> 60); eGFR For Non-African Americans > 60 (> 60)
[2017-10-13 21:02] LABS: Bilirubin,Urine Negative (Negative); Blood,Urine Small (Negative); Clarity,Urine Cloudy (Clear); Color,Urine Yellow (Yellow); Glucose,Urine (UA) 250 mg/dL (Normal); Ketones,Urine Negative (Negative); Leukocyte Esterase,Urine Negative (Negative); Nitrite,Urine Negative (Negative); PH,Urine 5.5 pH Units (5.0-8.0); Protein,Urine >=300 mg/dL (Neg-Trace); Specific Gravity,Urine 1.023 (1.010-1.025); Urobilinogen,Urine Normal (Normal)
[2017-10-13 21:04] LABS: Bacteria,Urine None Seen per hpf (None-Few); Squamous Epithelial Cell,Urine Many per lpf (None-Few); WBC,Urine 0-3 per hpf (0-3)
[2017-10-13] MEDS: dilTIAZem HCl 100 MG in D5% in Water 50 ML IVC SCH (21:15)
[2017-10-13 21:17] LABS: Amorphous Sediment,Urine Many (Few); Renal Epithelial Cells,Urine Few per hpf (None-Few)
[2017-10-13 21:18] LABS: Hyaline Casts,Urine None Seen per lpf (None-Few)
[2017-10-14] MEDS ORDERED: Sodium Phosphate 30 MMOL in D5% in Water 100 ML IVPB ONE (01:06)
[2017-10-14] MEDS ORDERED: Naloxone 0.4 MG/ML INJ IVP PRN (01:12)
[2017-10-14] MEDS ORDERED: Dextrose Gel 15 GM PO PRN ×2 (01:32)
[2017-10-14] MEDS ORDERED: *HR* Dextrose 50 % in Water (Syg) 50 ML SYRINGE IVP PRN (01:32)
[2017-10-14] MEDS ORDERED: D5% in Water 1,000 ML IVC PRN (01:32)
--- NOTE | 2017-10-14 01:38 | Internal Med History&Physical ---
Date of Encounter: 10/14/17 Time of Encounter: 01:22 Assessment and Plan (1) Atrial fibrillation with RVR Current visit: Yes Status: Acute Has known history of atrial fibrillation on metoprolol and Eliquis. Tachycardic likely due to acute influenza and fluid overload. Continue Cardizem drip, obtain 2D echo. (2) Dyspnea Current visit: Yes Status: Acute Patient positive for influenza A with fever without leukocytosis. Chest x-ray was negative for pneumonia but did show vascular congestion and cardiomegaly. Lab significant for elevated BNP, had 1+ bipedal pitting edema on physical exam. He has no known diagnosed history of heart failure. An echocardiogram 4 months ago was limited due to tachycardia. He had significant end expiratory wheezing on exam will add steroid therapy. - Repeat echocardiogram, HR currently 80-90s. - Tamiflu for total of 5 days. Sputum cultures, procalcitonin, strep and legionella antigen, mycoplasma serology. - Prednisone for significant wheezing. - Diuresis with 20 mg IV Lasix for 2 doses and monitor urine output. Qualifiers: Dyspnea type: unspecified Qualified Code(s): R06.00 - Dyspnea, unspecified (3) Influenza Current visit: Yes Status: Acute Continue Tamiflu for total of 5 day therapy (4) Essential hypertension Current visit: Yes Status: Acute Currently on Cardizem drip for afib rvr and is normotensive. Will need medication list from [place] until then continue Cardizem drip (5) Diabetes mellitus, type 2 Current visit: Yes Status: Acute Continue home medications except for metformin, diabetic diet, sliding scale. Most recent glucose in 200, will give 10 units of levemir. Qualifiers: Diabetes mellitus complication status: with unspecified complications Diabetes mellitus buttermaker continuous churn insulin use: unspecified buttermaker continuous churn insulin use status Qualified Code(s): E11.8 - Type 2 diabetes mellitus with unspecified complications (6) Chronic kidney disease (CKD) Current visit: Yes Status: Acute Medications to be renally dosed Qualifiers: Chronic kidney disease stage: unspecified stage Qualified Code(s): N18.9 - Chronic kidney disease, unspecified (7) History of CVA (cerebrovascular accident) Current visit: Yes Status: Acute Patient does not report this history but was seen on a previous CT scan. Patient on ASA and Eliquis as listed home medications. Medication list from [place] is pending. (8) HLD (hyperlipidemia) Current visit: No Status: Chronic Lipitor Qualifiers: Hyperlipidemia type: pure hypercholesterolemia Qualified Code(s): E78.00 - Pure hypercholesterolemia, unspecified; E78.0 - Pure hypercholesterolemia (9) Elevated LFTs Current visit: Yes Status: Acute Reviewed prior labs, patient has this persistently elevated LFTs, does not seem to be an acute hepatobiliary process. (10) Hypomagnesemia Current visit: Yes Status: Acute (11) Hypokalemia Current visit: Yes Status: Acute (12) Hypophosphatemia Current visit: Yes Status: Acute (13) DVT prophylaxis Current visit: No Status: Acute On Eliquis Internal Medicine - H&P: HPI History of present illness: 77-year-old male history of atrial fibrillation on Eliquis, hypertension, hyperlipidemia, diabetes who presents to the ER via EMS from the [facility] due to weakness and atrial fibrillation with rapid ventricular response. He had 3 weeks of coughing and weakness prior to presentation to [facility]. He was given 20 mg IV Cardizem without change in heart rate and so was transferred here. He complains of dyspnea with cough, he denies chest pain, abdominal pain, weakness for days. He denied swelling of hands/feet. He denies fevers but he was febrile upon presentation with Tmax 101.8 F and heart rate 160s. He was started on a Cardizem drip. He tested positive for influenza A and was started on Tamiflu. A chest x-ray showed pulmonary vascular congestion and cardiomegaly. Of note, patient was seen here 05/2017 for sepsis with afib with RVR and he left AMA. An echocardiogram at that time was unable to assess EF because of tachycardia. Past Med Surg Social Fam HX - Past Medical History Medical history: atrial fibrillation, diabetes, hyperlipidemia, hypertension, renal disease Psychiatric history: no psych history - Social History Smoking Status: Former smoker Smokeless Tobacco Status: No Alcohol use: occasionally Drug use: none - Family History Father Family Member Ethnicity: Non- Living Status: Hx Family Cardiac Disorders: Yes (ID) Hx Family Cancer: Yes (Bladder) Mother Family Member Ethnicity: Non- Living Status: Hx Family Cancer: Yes (Colon) Brother Family Member Ethnicity: Non- Living Status: Still Living Hx Family Cancer: Yes (Unknown what type) Sister Family Member Ethnicity: Non- Living Status: Still Living Hx Family Cardiac Disorders: Yes (HD) Internal Medicine - H&P: Meds Aspirin Enteric Coated [Aspirin EC] 81 mg PO BID 06/05/17 [History] Atorvastatin [Lipitor] 10 mg PO HS 06/05/17 [History] Cholecalciferol (D-3) [Vitamin D] 2,000 unit PO DAILY 06/05/17 [History] GlipiZIDE [Glipizide Xl] 5 BID 06/05/17 [History] Lidocaine 4% CRM (LMX) [Lmx 4] 1 appl TP BID 06/05/17 [History] Lisinopril [Zestril] 10 mg PO DAILY 06/05/17 [History] Metformin HCl [Glucophage Xr] 750 mg PO DAILY 06/05/17 [History] Metoprolol [Lopressor] 25 mg PO BID 06/05/17 [History] Terazosin [Hytrin] 1 mg PO DAILY 06/05/17 [History] 3 Allergy/AdvReac Type Severity Reaction Status Date / Time IV Contrast AdvReac Anaphylaxis Uncoded 06/05/17 18:35 All Systems PM: A 10-system review of systems was performed and is negative for pertinent findings except as documented above in the HPI. - Constitutional Constitutional: chills, fever(s), malaise, weakness, no anorexia, no weight gain , no weight loss - EENT Eyes: no change in vision, no discharge, no pain, no photophobia - Cardiovascular Cardiovascular ROS IM: dyspnea, no chest pain, no diaphoresis, no lightheadedness, no palpitations, no syncope - Respiratory Respiratory: cough, dyspnea on exertion, wheezing, chest congestion, no hemoptysis, no snoring - Gastrointestinal Gastrointestinal: no abdominal pain, no diarrhea, no hematemesis, no hematochezia, no melena, no nausea, no vomiting - Constitutional Vitals: Temp Pulse Resp BP Pulse Ox 99.3 F 84 16 127/76 95 10/14/17 00:46 10/14/17 00:46 10/14/17 00:46 10/14/17 00:46 10/14/17 00:46 General appearance: Present: A&O X 3 - Eye Eye exam: Present: PERRL, conjuntiva pink, sclera anicteric Pupils: Present: PERRL - ENT ENT exam: Present: mucous membranes moist, normal oropharynx - Respiratory Respiratory exam: Present: decreased breath sounds, prolonged expiratory phase, wheezes. Absent: accessory muscle use, chest wall tenderness, rales, rhonchi - Extremities Exam Extremities exam: Present: pedal edema, warm, radial pulses palpable and symmetrical. Absent: calf tenderness, cyanotic - Skin Skin exam: Present: dry, intact Internal Med - H&P Results - Labs CBC & Chem 7: 10/13/17 20:20 10/13/17 20:20
[2017-10-14] MEDS ORDERED: Ipratropium/Albuterol Neb 3 ML IH PRN (01:57)
[2017-10-14] MEDS: Insulin DETEMIR 100 UNIT/ML X5UNITS SQ SCH ×2 (01:59→21:22)
[2017-10-14] MEDS: predniSONE 20 MG TABLET PO SCH ×2 (02:14→10:50)
[2017-10-14] MEDS: dilTIAZem HCl 100 MG in D5% in Water 50 ML IVC SCH (02:21)
[2017-10-14 03:21] LABS: Basophils # 0.1 K/mcL (0.0-0.2); Basophils % 0.9 %; Eosinophils % 0.1 %; Hematocrit 43.8 % (37.5-50.1); Hemoglobin 15.4 g/dL (12.9-16.9); Lymphocytes # 0.7 K/mcL (0.6-4.6); Lymphocytes % 10.5 %; Mean Corpuscular HGB Conc 35.2 g/dL (31.6-35.5); Mean Corpuscular Hemoglobin 32.3 pg (28.0-33.3); Mean Corpuscular Volume 91.8 fL (83.0-100.0); Mean Platelet Volume 10.5 fL (9.4-12.4); Monocytes # 0.7 K/mcL (0.0-1.3); Monocytes % 9.5 %; Neutrophils # 5.4 K/mcL (1.6-8.9); Platelet Count 177 K/mcL (140-400); Red Blood Count 4.77 M/mcL (4.19-5.50); Red Cell Distribution Width 13.6 % (11.5-14.5)
[2017-10-14 03:31] LABS: BUN/Creatinine Ratio 15 (6-26); Blood Urea Nitrogen 15 mg/dL (8-23); Calcium 8.9 mg/dL (8.6-10.3); Carbon Dioxide 24 mEq/L (23-29); Chloride 104 mEq/L (98-107); Glucose 198 mg/dL (70-105); Magnesium 1.8 mg/dL (1.6-2.6); Osmolality,Calculated 288 (280-300); Phosphorous 3.7 mg/dL (2.7-4.5); Potassium 3.6 mEq/L (3.5-5.1); Sodium 136 mEq/L (136-145); eGFR For African Americans > 60 (> 60); eGFR For Non-African Americans > 60 (> 60)
[2017-10-14] MEDS ORDERED: *HR* Heparin 5,000 UNIT/ML VIAL SQ SCH (06:00)
[2017-10-14] MEDS: Insulin LISPRO 300 UNITS/3 ML VIAL SQ SCH ×3 (10:49→17:35)
[2017-10-14] MEDS: Furosemide 40 MG/4 ML VIAL IVP SCH ×2 (10:49→21:22)
[2017-10-14] MEDS: Apixaban 5 MG TABLET PO SCH ×2 (10:49→21:22)
[2017-10-14] MEDS ORDERED: Perflutren Lipid Microsphere 1.3 ML in 0.9 % Sodium Chloride 8.7 ML IVP ONE (13:43)
[2017-10-14] MEDS ORDERED: Perflutren Lipid Microsphere 2 ML VIAL ONE (13:45)
--- NOTE | 2017-10-14 15:02 | Internal Med Progress Note ---
Date of Encounter: 10/14/17 Time of Encounter: 09:00 - Assessment and plan (1) Atrial fibrillation with RVR Current Visit: Yes Status: Acute Assessment and plan: -Rate now controlled on Cardizem drip so will change to by mouth -Will continue anticoagulation with Eliquis -Will order echocardiogram (2) Influenza Current Visit: Yes Status: Acute Assessment and plan: -Patient positive for influenza A. -Continue current management with Tamiflu. (3) Dyspnea Current Visit: Yes Status: Acute Assessment and plan: -Patient was slightly elevated BNP and mild cardiomegaly and pulmonary venous congestion. -We will continue IV diuresis with Lasix for concerns of heart failure. -Echocardiogram pending. Qualifiers: Dyspnea type: unspecified Qualified Code(s): R06.00 - Dyspnea, unspecified (4) Essential hypertension Current Visit: Yes Status: Acute Assessment and plan: -Pressure is controlled on Cardizem. -Continue current management (5) Diabetes mellitus, type 2 Current Visit: Yes Status: Acute Assessment and plan: -Blood glucose controlled; continue long-acting insulin. 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: unspecified termite inspector insulin use status Qualified Code(s): E11.8 - Type 2 diabetes mellitus with unspecified complications (6) DVT prophylaxis Current Visit: No Status: Acute Assessment and plan: -On Eliquis - Constitutional Vitals: Temp Pulse Resp BP Pulse Ox 97.9 F 80 18 135/71 95 10/14/17 11:00 10/14/17 11:00 10/14/17 11:00 10/14/17 11:00 10/14/17 11:00 General appearance: Present: A&O X 3, no acute distress - Respiratory Respiratory exam: Present: wheezes - Cardiovascular Cardiovascular exam: Present: irregular rhythm Internal Medicine: Result - Labs CBC & Chem 7: 10/14/17 02:58 10/14/17 02:58 Labs: Short CBC 10/14/17 Range/Units 02:58 WBC 6.9 (4.3-11.1) K/mcL Hgb 15.4 (12.9-16.9) g/dL Hct 43.8 (37.5-50.1) % Plt Count 177 (140-400) K/mcL Neutrophils # 5.4 (1.6-8.9) K/mcL BMP 10/14/17 02:58 Sodium 136 Potassium 3.6 Chloride 104 Carbon Dioxide 24 BUN 15 Creatinine 1.01 Glucose 198 H Calcium 8.9 - ABG Interpretation ABG results: PT/INR, D-dimer PT 12.1 Seconds (9.4-12.1) 10/13/17 20:20 Consult Discharge Plan - Plan [facility] [[facility] Care Provider[facility] -
[2017-10-14] MEDS ORDERED: Insulin LISPRO 300 UNITS/3 ML VIAL SQ SCH (21:00)
[2017-10-15] MEDS: Insulin LISPRO 300 UNITS/3 ML VIAL SQ SCH (08:35)
[2017-10-15] MEDS: predniSONE 20 MG TABLET PO SCH (08:35)
[2017-10-15] MEDS: Apixaban 5 MG TABLET PO SCH (08:36)
[2017-10-15 09:23] LABS: BUN/Creatinine Ratio 22 (6-26); Blood Urea Nitrogen 12 mg/dL (8-23); Carbon Dioxide 33 mEq/L (23-29); Chloride 100 mEq/L (98-107); Glucose 75 mg/dL (70-105); Osmolality,Calculated 296 (280-300); Sodium 144 mEq/L (136-145); eGFR For African Americans > 60 (> 60); eGFR For Non-African Americans > 60 (> 60)
[2017-10-15 09:41] LABS: Basophils % 0.4 %; Eosinophils % 0.1 %; Hematocrit 48.1 % (37.5-50.1); Immature Granulocytes % 0.5 % (0-4); Lymphocytes # 1.6 K/mcL (0.6-4.6); Lymphocytes % 18.8 %; Mean Corpuscular HGB Conc 34.9 g/dL (31.6-35.5); Mean Corpuscular Hemoglobin 32.1 pg (28.0-33.3); Mean Corpuscular Volume 91.8 fL (83.0-100.0); Mean Platelet Volume 10.9 fL (9.4-12.4); Monocytes # 0.6 K/mcL (0.0-1.3); Monocytes % 7.1 %; Neutrophils # 6.1 K/mcL (1.6-8.9); Platelet Count 215 K/mcL (140-400); Red Blood Count 5.24 M/mcL (4.19-5.50); Red Cell Distribution Width 13.7 % (11.5-14.5); Segmented Neutrophils % 73.1 %
[2017-10-15 09:44] LABS: Hemoglobin 16.8 g/dL (12.9-16.9)
[2017-10-15 10:35] VITALS: BP 128/80
--- NOTE | 2017-10-15 16:40 | Discharge Summary ---
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: unspecified termite treater insulin use status Qualified Code(s): E11.8 - Type 2 diabetes mellitus with unspecified complications - Discharge Medications Home Medications: Aspirin Enteric Coated [Aspirin EC] 81 mg PO BID 06/05/17 [History] Atorvastatin [Lipitor] 10 mg PO HS 06/05/17 [History] Lisinopril [Zestril] 2.5 mg PO DAILY 06/05/17 [History] Metformin HCl [Glucophage Xr] 750 mg PO DAILY 06/05/17 [History] Metoprolol [Lopressor] 25 mg PO BID 06/05/17 [History] Terazosin [Hytrin] 1 mg PO DAILY 06/05/17 [History] Apixaban [Eliquis] 5 mg PO BID 10/14/17 [History] Cyanocobalamin (Vitamin B-12) [Vitamin B12] 1,000 mcg PO DAILY 10/14/17 [History ] Insulin Glargine,Hum.rec.anlog [Lantus Solostar] 20 unit SQ HS 10/14/17 [History ] Insulin Regular, Human [Novolin R] 10 unit SQ TIDWM 10/14/17 [History] Naproxen [Naprosyn] 500 mg PO BID 10/14/17 [History] Allergies/Adverse Reactions: 3 Allergy/AdvReac Type Severity Reaction Status Date / Time IV Contrast Allergy Anaphylaxis Uncoded 10/14/17 15:15 Procedures/tests Complete & Pending: Procedures Performed prior 72 hours Category Date Time Status EV echocardiogram w enhance Routine Y 10/14/17 01:56 Completed Date of admission: 10/14/17 01:12 [facility] - Patient Status Disposition: Left Against Medical Advice Condition: Good - Discharge Instructions Follow Up With: [facility] [Primary Care Provider[facility] - Hospital course: Patient is a 77-year-old male who presented with dyspnea and found to have atrial fibrillation with RVR in addition to influenza A. Workup showed that the patient had elevated BNP with cardiomegaly and pulmonary venous congestion on chest x-ray. During patients hospital stay, he was being treated for atrial fibrillation with RVR in addition to influenza A. In addition, patient was also on supplemental oxygen for acute hypoxic respiratory failure. He was in the process of being worked up and treated for heart failure. Patient however decided to leave AGAINST MEDICAL ADVICE even after the risk of acute respiratory failure and heart failure was explained. - Time Spent with Patient Total time spent providing and/or coordinating discharge services: Less than 30 minutes - Constitutional Vitals: Temp Pulse Resp BP Pulse Ox 96.9 F L 90 14 128/80 95 10/15/17 10:27 10/15/17 10:27 10/15/17 10:27 10/15/17 10:27 10/15/17 10:27 General appearance: Present: A&O X 3, no acute distress - Respiratory Respiratory exam: Present: CTAB. Absent: accessory muscle use, rales, rhonchi, wheezes - Cardiovascular Cardiovascular exam: Present: RRR, +S1, +S2. Absent: diastolic murmur, gallop, rubs, systolic murmur - VTE Documentation of Mechanical Device: Intermittent pneumatic compression device
--- NOTE | 2017-10-16 16:10 | Electrocardiograph Report ---
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
[2017-10-17 12:28] LABS: Procalcitonin 0.13 ng/mL (<=0.10)
== END 2017-10-15 12:15 | disposition left against medical advice (07) | DRG 308 ==
LOC: EMEROO 20:04 → 2NENU 20:04
PROVIDERS: ADMIT Internal Medicine; ATTEND Hospitalist

== ENCOUNTER 2017-12-28 10:30 | Observation (INO) ==
--- NOTE | 2017-12-28 10:52 | Emergency Department Note ---
Disposition Clinical Impression: Atrial fibrillation with RVR, Leg pain, right, Confusion Altered mental status Qualifiers: Altered mental status type: unspecified Qualified Code(s): R41.82 - Altered mental status, unspecified Disposition: Admitted As Inpatient Condition: Fair General Adult HPI - General Chief complaint: ED Extremity Problem,Nontraumatic Stated complaint: RLE pain [id number] Time Seen by Provider: 12/28/17 10:33 Source: patient, EMS Mode of arrival: EMS Limitations: no limitations Nursing Notes Reviewed: Yes Vital Signs Reviewed: Yes - History of Present Illness HPI Narrative: 77-year-old male who reports 1 month of initially intermittent right lower extremity pain but for the last 2 weeks it has been constant. However, he family member who is present states that their main concern is intermittent confusion. He says it hurts worse if he stands on it. He is unable to tell me if this the upper or lower leg. He denies any swelling. He denies any history of this in the past. He denies any fever. He also denies any chest pain or shortness of breath or palpitations. He does report a history of atrial fibrillation and he is currently anticoagulated but he does not know what anticoagulated he is on. He receives his care currently at [facility]. He denies abdominal pain or nausea or vomiting. He denies missing his doses of medications. He does admit to increased fatigue and has been falling asleep at inappropriate times Radiation: non-radiation Pain Severity: moderate Pain Scale: 9 Improves with: nothing Associated symptoms: Reports: denies other symptoms Treatments Prior to Arrival: none - Related Data Home Medications Medication Instructions Recorded Confirmed Aspirin Enteric Coated [Aspirin EC] 81 mg PO BID 06/05/17 10/14/17 Atorvastatin [Lipitor] 10 mg PO HS 06/05/17 10/14/17 Lisinopril [Zestril] 2.5 mg PO DAILY 06/05/17 10/14/17 Metformin HCl [Glucophage Xr] 750 mg PO DAILY 06/05/17 10/14/17 Metoprolol [Lopressor] 25 mg PO BID 06/05/17 10/14/17 Terazosin [Hytrin] 1 mg PO DAILY 06/05/17 10/14/17 Apixaban [Eliquis] 5 mg PO BID 10/14/17 10/14/17 Cyanocobalamin (Vitamin B-12) 1,000 mcg PO DAILY 10/14/17 10/14/17 [Vitamin B12] Insulin Glargine,Hum.rec.anlog 20 unit SQ HS 10/14/17 10/14/17 [Lantus Solostar] Insulin Regular, Human [Novolin R] 10 unit SQ TIDWM 10/14/17 10/14/17 Naproxen [Naprosyn] 500 mg PO BID 10/14/17 10/14/17 Allergies Allergy/AdvReac Type Severity Reaction Status Date / Time IV Contrast Allergy Anaphylaxis Uncoded 10/14/17 15:15 All systems ED: reviewed and negative except as stated. Constitutional: Denies: fever ENT ED: Denies: throat pain Cardiovascular: Denies: chest pain Respiratory: Denies: cough, dyspnea Gastrointestinal: Denies: abdominal pain, nausea, vomiting, diarrhea Genitourinary: Denies: dysuria Musculoskeletal: Denies: back pain Integumentary: Denies: rash Endocrine: Reports: fatigue Past Medical History - Past Medical History Medical history: Reports: atrial fibrillation, diabetes, hyperlipidemia, hypertension, renal disease Psychiatric history: Reports: no psych history - Social History Smoking Status: Former smoker Smokeless Tobacco Status: No Alcohol use: Reports: occasionally Drug use: Reports: none Physical Exam - General Limitations: no limitations, altered mental status General appearance: alert, in no apparent distress - Head Head exam: atraumatic - Eye Eye exam: Present: normal appearance, PERRL - ENT ENT exam: normal exam, normal oropharynx - Neck Neck exam: Present: normal inspection - Chest Chest inspection: Present: normal inspection - Respiratory Respiratory exam: Present: normal lung sounds bilaterally. Absent: respiratory distress - Cardiovascular Cardiovascular exam: Present: tachycardia, irregular rhythm - Abdominal Exam Abdominal exam: Present: soft, Non-Tender - Extremities Exam Extremities exam: Present: other (Bilateral lower extremities are mildly cool to the touch capillary refill less than 3 seconds. Pulses are difficult to palpate bilaterally. No edema is present. No cellulitis or lesions) - Neurological Exam Neurological exam: Present: other (He is alert but not oriented to time however he does fall asleep during questioning and is a little slower to answer my questions. He also goes off topic and occasionally forgets what he is talking about. He has no other focal neurologic deficit) - Skin Skin exam: Present: warm, dry Course Course Narrative: On arrival is noted his heart rate was approximately 150. An EKG was obtained which showed A. fib with RVR. In reviewing the medical record he was just admitted a couple of months ago for A. fib with RVR. His blood pressure is adequate with a systolic blood pressure 150. I will go ahead and start a Cardizem drip with bolus. After cardizem drip/bolus his HR began to decline and is currently around 100 with a maintained BP. ANANDA does not show acute occlusion in the LE, and negative doppler of the RLE. Will admit due to Afib RVR. Negative CT head. Vital Signs Temperature 97.9 F 12/28/17 10:31 Pulse Rate 158 12/28/17 10:31 Respiratory Rate 18 12/28/17 10:31 Blood Pressure 153/111 12/28/17 10:31 O2 Sat by Pulse Oximetry 99 12/28/17 10:31 Temperature 97.8 F 12/28/17 14:32 Pulse Rate 112 12/28/17 14:32 Respiratory Rate 18 12/28/17 14:32 Blood Pressure 139/87 12/28/17 14:32 O2 Sat by Pulse Oximetry 96 12/28/17 14:32 Oxygen Delivery Oxygen Delivery Nasal Cannula Medical Decision Making - Medical Records Medical records reviewed: Yes I reviewed the patient's medical records. - Lab Data Lab results reviewed: Yes I reviewed the patient's lab results. Result diagrams: 12/28/17 10:54 12/28/17 10:54 Lab Results 12/28/17 12/28/17 12/28/17 Range/Units 10:44 10:45 10:54 WBC 8.9 (4.3-11.1) K/mcL RBC 5.87 H (4.19-5.50) M/mcL Hgb 18.6 H (12.9-16.9) g/dL Hct 53.7 H (37.5-50.1) % MCV 91.5 (83.0-100.0) fL MCH 31.7 (28.0-33.3) pg MCHC 34.6 (31.6-35.5) g/dL RDW 12.3 (11.5-14.5) % Plt Count 207 (140-400) K/mcL MPV 10.2 (9.4-12.4) fL Immature Gran % 0.7 (0-4) % Seg Neutrophils % 61.6 % Lymphocytes % 27.1 % Monocytes % 9.9 % Eosinophils % 0.2 % Basophils % 0.5 % Neutrophils # 5.5 (1.6-8.9) K/mcL Lymphocytes # 2.4 (0.6-4.6) K/mcL Monocytes # 0.9 (0.0-1.3) K/mcL Eosinophils # 0.0 (0.0-0.6) K/mcL Basophils # 0.0 (0.0-0.2) K/mcL PT 11.6 (9.4-12.1) Seconds INR 1.1 Sodium (136-145) mEq/L Potassium (3.5-5.1) mEq/L Chloride (98-107) mEq/L Carbon Dioxide (23-29) mEq/L BUN (8-23) mg/dL Creatinine (0.70-1.30) mg/dL Est GFR ( Amer) (> 60) Est GFR (Non-Af Amer) (> 60) BUN/Creatinine Ratio (6-26) Glucose (70-105) mg/dL Calculated Osmolality (280-300) Calcium (8.6-10.3) mg/dL Troponin I (< 0.04) ng/mL B-Natriuretic Peptide 93 (Less than 100) pg/mL 12/28/17 Range/Units 10:54 WBC (4.3-11.1) K/mcL RBC (4.19-5.50) M/mcL Hgb (12.9-16.9) g/dL Hct (37.5-50.1) % MCV (83.0-100.0) fL MCH (28.0-33.3) pg MCHC (31.6-35.5) g/dL RDW (11.5-14.5) % Plt Count (140-400) K/mcL MPV (9.4-12.4) fL Immature Gran % (0-4) % Seg Neutrophils % % Lymphocytes % % Monocytes % % Eosinophils % % Basophils % % Neutrophils # (1.6-8.9) K/mcL Lymphocytes # (0.6-4.6) K/mcL Monocytes # (0.0-1.3) K/mcL Eosinophils # (0.0-0.6) K/mcL Basophils # (0.0-0.2) K/mcL PT (9.4-12.1) Seconds INR Sodium 132 L (136-145) mEq/L Potassium 4.2 (3.5-5.1) mEq/L Chloride 97 L (98-107) mEq/L Carbon Dioxide 27 (23-29) mEq/L BUN 21 (8-23) mg/dL Creatinine 1.38 H (0.70-1.30) mg/dL Est GFR ( Amer) > 60 (> 60) Est GFR (Non-Af Amer) 50 L (> 60) BUN/Creatinine Ratio 15 (6-26) Glucose 390 H (70-105) mg/dL Calculated Osmolality 293 (280-300) Calcium 9.9 (8.6-10.3) mg/dL Troponin I 0.03 (< 0.04) ng/mL B-Natriuretic Peptide (Less than 100) pg/mL - Radiology Data Radiology results reviewed: Yes I reviewed the patient's radiology results. - EKG Data EKG #1 EKG attestation: Yes I reviewed and interpreted this EKG. Rate: tachycardia Rhythm: A.Fib Interpretation: other (Afib RVR w/ HR of 136. Unchanged from prior EKG in axis. ) Attestation Statement - Attestation Attestation: I examined this patient and my medical decision-making was reviewed with the Resident Physician. I agree with the documented findings, disposition and treatment plan as described except to the extent set forth below. At the time of my eval, pt is now rate-controlled with HR approx 100 on CM, has normal mental status, converses normally with me. Denies any sx at this point, specifically no CP/SOB.
[2017-12-28 11:04] LABS: Basophils % 0.5 %; Eosinophils % 0.2 %; Hematocrit 53.7 % (37.5-50.1); Hemoglobin 18.6 g/dL (12.9-16.9); Immature Granulocytes % 0.7 % (0-4); Lymphocytes # 2.4 K/mcL (0.6-4.6); Lymphocytes % 27.1 %; Mean Corpuscular HGB Conc 34.6 g/dL (31.6-35.5); Mean Corpuscular Hemoglobin 31.7 pg (28.0-33.3); Mean Corpuscular Volume 91.5 fL (83.0-100.0); Mean Platelet Volume 10.2 fL (9.4-12.4); Monocytes # 0.9 K/mcL (0.0-1.3); Monocytes % 9.9 %; Neutrophils # 5.5 K/mcL (1.6-8.9); Platelet Count 207 K/mcL (140-400); Red Blood Count 5.87 M/mcL (4.19-5.50); Red Cell Distribution Width 12.3 % (11.5-14.5); Segmented Neutrophils % 61.6 %
[2017-12-28 11:09] LABS: INR 1.1; Prothrombin Time 11.6 Seconds (9.4-12.1)
[2017-12-28 11:24] LABS: BUN/Creatinine Ratio 15 (6-26); Blood Urea Nitrogen 21 mg/dL (8-23); Calcium 9.9 mg/dL (8.6-10.3); Carbon Dioxide 27 mEq/L (23-29); Chloride 97 mEq/L (98-107); Glucose 390 mg/dL (70-105); Osmolality,Calculated 293 (280-300); Potassium 4.2 mEq/L (3.5-5.1); Sodium 132 mEq/L (136-145); Troponin I 0.03 ng/mL (< 0.04); eGFR For African Americans > 60 (> 60); eGFR For Non-African Americans 50 (> 60)
[2017-12-28] MEDS ORDERED: Naloxone 0.4 MG/ML INJ IVP PRN (14:19)
[2017-12-28] MEDS ORDERED: D5% in Water 1,000 ML IVC PRN (14:20)
[2017-12-28] MEDS ORDERED: Dextrose Gel 15 GM/37.5 ML TUBE PO PRN ×2 (14:20)
[2017-12-28] MEDS ORDERED: *HR* Dextrose 50 % in Water (Syg) 50 ML SYRINGE IVP PRN (14:20)
--- NOTE | 2017-12-28 14:24 | Internal Med History&Physical ---
<Benji Castle - Last Filed: 12/28/17 17:56> Date of Encounter: 12/28/17 Time of Encounter: 14:22 Assessment and Plan (1) Atrial fibrillation with RVR Current visit: Yes Status: Acute H/O a-fib, on eliquis, ASA and BB at home. He presents today with confusion, and was found to be in Afib with RVR rate of 136 per EKG. He does admit to feeling increasing irregular heart rhythm over the last few days. He denies missing any doses of his medication but d/t intermittent confusion his history is suspect. He is hemodynamically stable with and irregular rhythm and a rate of 106 as of my assessment,. -Continue cardizem gtt -resume BB -tele, spo2 monitoring -continue eliquis, ASA -CBC, BMP in the am (2) Altered mental status Current visit: Yes Status: Acute Presents today with AMS per family. Family reports that the patient has been intermittently confused and does not seem himself. Per my examination he appears to be alert to place, situation, date and self, however, he does appear to become intermittently confused to date and situation but reorients with verbal ques. Etiology for confusion unclear at this time. CT head show no acute intracranial abnormalities. 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 CXR negative for acute pulmonary abnormalities No focal neurological deficits noted. -UA with reflex culture and micro now Qualifiers: Altered mental status type: unspecified Qualified Code(s): R41.82 - Altered mental status, unspecified (3) Confusion Current visit: Yes Status: Acute see plan above (4) Leg pain, right Current visit: Yes Status: Acute Rt leg pain. He reports that he is unable to bare weight since this morning. He reports that he fell while going up the stairs last night. Additionally, he reports approximately 4 falls withing the last few weeks. Venous Doppler studies in the ED negative for DVT. 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 See plan above (7) Chronic kidney disease (CKD) Current visit: Yes Status: Acute H/o CKD. Creatinine 1.38 today -avoid nephrotoxins -IVF 0.9% NS at 100ml/hr Qualifiers: Chronic kidney disease stage: unspecified stage Qualified Code(s): N18.9 - Chronic kidney disease, unspecified (8) Essential hypertension Current visit: Yes Status: Acute Stable, continue VIET, BB (9) HLD (hyperlipidemia) Current visit: Yes Status: Chronic Continue lipitor Qualifiers: Hyperlipidemia type: pure hypercholesterolemia Qualified Code(s): E78.00 - Pure hypercholesterolemia, unspecified; E78.0 - Pure hypercholesterolemia (10) DVT prophylaxis Current visit: Yes Status: Acute Continue eliquis Internal Medicine - H&P: HPI Chief complaint: Rt leg pain, unablle to bare weight d/t pain, confusion, falls , afib RVR Admitted From: Home Plans for Post Hospital Care: Home History of present illness: Mr. Subramanian is a 77 year old male with a PMH of atrial fibrillation, diabetes, hyperlipidemia, hypertension, and CKD III A. he presents to [facility] ED today with confusion, A. fib RVR and right lower extremity pain. The patient reports that beginning this morning he is and able to bear weight on his right leg due to intense amount of pain. He reports that last night he fell while carrying laundry up the stairs. He denies any swelling of his joints or leg. He denies any head trauma or syncopal events. He does admit that he has fallen 4 times over the last few weeks. While in the ED he was found to be in A. fib RVR with rate of 136. He does not history of atrial fibrillation and takes eliquis. Additionally, the family is concerned that the patient does not appear to be acting himself. The family is concerned that he appears intermittently confused. Upon my assessment the patient is alert to self, situation, location and date and time however, he does intermittently need to be reoriented to situation. He denies any fever, chills, chest pain, shortness of breath, abdominal pain, back pain, nausea, vomiting, diarrhea, dysuria, unilateral extremity swelling/pain. He does admit that he has been increasingly tired and needing to take more for the last couple of weeks but nothing that there are no additional complaints. With the exception of hyperglycemia the patient's BMP was unremarkable, CBC also unremarkable. CT of head negative and chest x-ray negative. Past Med Surg Social Fam HX - Past Medical History Medical history: atrial fibrillation, diabetes, hyperlipidemia, hypertension, renal disease Psychiatric history: no psych history - Social History Smoking Status: Former smoker Smokeless Tobacco Status: No Alcohol use: occasionally Drug use: none - Family History Father Family Member Ethnicity: Non- Living Status: Hx Family Cardiac Disorders: Yes (AR) Hx Family Cancer: Yes (Bladder) Mother Family Member Ethnicity: Non- Living Status: Hx Family Cancer: Yes (Colon) Brother Family Member Ethnicity: Non- Living Status: Still Living Hx Family Cancer: Yes (Unknown what type) Sister Family Member Ethnicity: Non- Living Status: Still Living Hx Family Cardiac Disorders: Yes (HD) Internal Medicine - H&P: Meds Aspirin Enteric Coated [Aspirin EC] 81 mg PO BID 06/05/17 [History] Atorvastatin [Lipitor] 10 mg PO HS 06/05/17 [History] Lisinopril [Zestril] 2.5 mg PO DAILY 06/05/17 [History] Metformin HCl [Glucophage Xr] 750 mg PO DAILY 06/05/17 [History] Metoprolol [Lopressor] 25 mg PO BID 06/05/17 [History] Terazosin [Hytrin] 1 mg PO DAILY 06/05/17 [History] Apixaban [Eliquis] 5 mg PO BID 10/14/17 [History] Cyanocobalamin (Vitamin B-12) [Vitamin B12] 1,000 mcg PO DAILY 10/14/17 [History ] Insulin Glargine,Hum.rec.anlog [Lantus Solostar] 20 unit SQ HS 10/14/17 [History ] Insulin Regular, Human [Novolin R] 10 unit SQ TIDWM 10/14/17 [History] Naproxen [Naprosyn] 500 mg PO BID 10/14/17 [History] 3 Allergy/AdvReac Type Severity Reaction Status Date / Time IV Contrast Allergy Anaphylaxis Uncoded 10/14/17 15:15 All Systems PM: A 10-system review of systems was performed and is negative for pertinent findings except as documented above in the HPI. - Constitutional Constitutional: no chills, no fatigue, no fever(s) - EENT Eyes: no blurry vision, no change in vision - Cardiovascular Cardiovascular ROS IM: irregular heart rhythm, lightheadedness, palpitations, no chest pain, no diaphoresis, no dyspnea, no dyspnea on exertion, no edema, no syncope - Respiratory Respiratory: no cough, no dyspnea, no wheezing, no excessive phlegm production - Gastrointestinal Gastrointestinal: no abdominal pain, no diarrhea, no nausea, no vomiting - Genitourinary Genitourinary ROS male: no difficulty urinating, no dysuria, no flank pain, no hematuria, no urinary frequency, no urinary hesitancy, no urinary incontinence, no urinary urgency - Musculoskeletal Musculoskeletal ROS IM: arthralgias, no back pain, no joint swelling, no myalgias Additional comments: Pain with weight baring - Integumentary Integumentary IM: no rash, no unusual bruising - Neurological Neurological ROS: confusion (new intermittent confusion per family), frequent falls (patient reports 4 falls in the last few weeks with most recent being yesterday), no dizziness - Constitutional Vitals: Temp Pulse Resp BP Pulse Ox 97.9 F 80 18 133/77 98 12/28/17 10:31 12/28/17 13:25 12/28/17 14:09 12/28/17 14:09 12/28/17 13:25 General appearance: Present: cooperative, A&O X 3, no acute distress, answers questions appropriately - Head Head exam: Present: atraumatic, normocephalic - Eye Eye exam: Present: EOMI Pupils: Present: PERRL - Neck Neck exam general surgery: Present: supple, trachea midline. Absent: lymphadenopathy - Respiratory Respiratory exam: Present: CTAB. Absent: accessory muscle use, rales, rhonchi, wheezes - Cardiovascular Cardiovascular exam: Present: irregular rhythm, tachycardia - GI/Abdominal GI/Abdominal exam: Present: normal bowel sounds, soft, no peritoneal signs. Absent: distended, tenderness - Extremities Exam Extremities exam: Present: full ROM, normal capillary refill, normal inspection , radial pulses palpable and symmetrical. Absent: joint swelling, pedal edema, tenderness - Neurological Exam Neurological exam: Present: alert, CN II-XII intact, oriented X3, no focal deficits. 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 No acute intracranial abnormality noted. D/ / 12/28/2017 13:38:40 Jacinto Adkins MD / [facility] Interpreting Provider: Jacinto Adkins MD <Meka Tompkins - Last Filed: 12/28/17 18:11> Date of Encounter: 12/28/17 Internal Medicine - H&P: HPI History of present illness: Mr. Subramanian is a 77 year old male All Systems PM: A 10-system review of systems was performed and is negative for pertinent findings except as documented above in the HPI. - Constitutional Vitals: Temp Pulse Resp BP Pulse Ox 97.8 F 112 18 139/87 96 12/28/17 14:32 12/28/17 14:32 12/28/17 14:32 12/28/17 14:32 12/28/17 14:32 Internal Med - H&P Results - Labs CBC & Chem 7: 12/28/17 10:54 12/28/17 10:54 - Attending Attestation I have personally performed a face to face evaluation on this patient. I have reviewed and agree with the care plan provided by ANT Castle. History and Exam by me shows: Mr. Subramanian is a 77 year old male with a PMH of atrial fibrillation, diabetes, hyperlipidemia, hypertension, and CKD III A. he presents to [facility] ED today with confusion, A. fib RVR and right lower extremity pain. Pt denied any CP / SOB. Still looks confused Gen: A, A, O to self only Heart: S1S2 + Irregular rate and rhythm Chest: Diminished BS Neuro : No focal deficit a/p 1. Acute delirium Need to r/o CVA check MRI of Brain 2. Acute Afib with RVR on Cardizem gtt
[2017-12-28] MEDS ORDERED: Acetaminophen 325 MG TABLET PO PRN (14:35)
[2017-12-28] MEDS: 0.9 % Sodium Chloride 1,000 ML IVC SCH (14:50)
[2017-12-28] MEDS: Insulin LISPRO 300 UNITS/3 ML VIAL SQ SCH ×2 (14:58→21:00)
--- NOTE | 2017-12-28 17:11 | Electrocardiograph Report ---
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: [facility] : 1940 Requested By: Santiago Brantley Order Number: [id number] Reading MD: Rafael Godoy MD Measurements Intervals [place] Rate: 136 P: [place]: 0 QRS: -36 QRSD: 95 T: 14 QT: 289 QTc: 369 Interpretive Statements ATRIAL FIBRILLATION WITH RAPID VENTRICULAR RESPONSE MARKED LEFT AXIS DEVIATION [QRS AXIS < -30] POSSIBLE ANTERIOR MYOCARDIAL INFARCTION [30 ms Q WAVE IN V3/V4, OR R < 0.2 mV IN V4], OF INDETERMINATE AGE POSSIBLE INFERIOR MYOCARDIAL INFARCTION [30 ms Q WAVE IN II/aVF], PROBABLY OLD Electronically Signed On 12-28-2017 17:09:45 EST by Rafael Godoy MD
[2017-12-28] MEDS: Apixaban 5 MG TABLET PO SCH (20:11)
[2017-12-28] MEDS: Aspirin Enteric Coated 81 MG Tablet PO SCH (20:11)
[2017-12-28] MEDS: Insulin DETEMIR 100 UNIT/ML X5UNITS SQ SCH (20:12)
[2017-12-29 01:04] LABS: Hematocrit 46.8 % (37.5-50.1); Mean Corpuscular HGB Conc 34.6 g/dL (31.6-35.5); Mean Corpuscular Hemoglobin 31.6 pg (28.0-33.3); Mean Corpuscular Volume 91.2 fL (83.0-100.0); Mean Platelet Volume 10.2 fL (9.4-12.4); Platelet Count 194 K/mcL (140-400); Red Blood Count 5.13 M/mcL (4.19-5.50); Red Cell Distribution Width 12.4 % (11.5-14.5)
[2017-12-29 01:05] LABS: Hemoglobin 16.2 g/dL (12.9-16.9)
[2017-12-29 01:25] LABS: Calcium 9.3 mg/dL (8.6-10.3); Potassium 4.3 mEq/L (3.5-5.1)
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
[2017-12-29] MEDS: Insulin LISPRO 300 UNITS/3 ML VIAL SQ SCH ×4 (10:57→20:56)
[2017-12-29] MEDS: Cyanocobalamin (B-12) 1,000 MCG TABLET PO SCH (10:58)
[2017-12-29] MEDS: Apixaban 5 MG TABLET PO SCH ×2 (10:58→20:55)
[2017-12-29] MEDS: Aspirin Enteric Coated 81 MG Tablet PO SCH ×2 (10:58→20:55)
[2017-12-29] MEDS ORDERED: 0.9 % Sodium Chloride 500 ML IVC ONE (15:43)
[2017-12-29] MEDS ORDERED: 0.9 % Sodium Chloride 500 ML ONE (17:25)
[2017-12-29] MEDS: Insulin DETEMIR 100 UNIT/ML X5UNITS SQ SCH (20:55)
[2017-12-29] MEDS: 0.9 % Sodium Chloride 1,000 ML IVC SCH (22:45)
[2017-12-30 01:09] LABS: Bilirubin,Urine Small (Negative); Blood,Urine Large (Negative); Clarity,Urine Cloudy (Clear); Color,Urine Dark Yellow (Yellow); Glucose,Urine (UA) >=1000 mg/dL (Normal); Ketones,Urine Negative (Negative); Leukocyte Esterase,Urine Negative (Negative); Nitrite,Urine Negative (Negative); PH,Urine 5.5 pH Units (5.0-8.0); Protein,Urine >=300 mg/dL (Neg-Trace); Specific Gravity,Urine 1.029 (1.010-1.025); Urobilinogen,Urine Normal (Normal)
[2017-12-30 01:11] LABS: Bacteria,Urine None Seen per hpf (None-Few); Hyaline Casts,Urine Few per lpf (None-Few); RBC,Urine 50-100 per hpf (0-3); Squamous Epithelial Cell,Urine Many per lpf (None-Few); WBC,Urine 0-3 per hpf (0-3)
[2017-12-30 01:28] LABS: Basophils % 0.6 %; Eosinophils # 0.2 K/mcL (0.0-0.6); Eosinophils % 2.5 %; Hematocrit 44.9 % (37.5-50.1); Hemoglobin 15.2 g/dL (12.9-16.9); Immature Granulocytes % 1.2 % (0-4); Lymphocytes # 2.2 K/mcL (0.6-4.6); Lymphocytes % 31.1 %; Mean Corpuscular HGB Conc 33.9 g/dL (31.6-35.5); Mean Corpuscular Hemoglobin 31.7 pg (28.0-33.3); Mean Corpuscular Volume 93.5 fL (83.0-100.0); Mean Platelet Volume 10.2 fL (9.4-12.4); Monocytes # 0.6 K/mcL (0.0-1.3); Monocytes % 8.2 %; Neutrophils # 3.9 K/mcL (1.6-8.9); Platelet Count 179 K/mcL (140-400); Red Cell Distribution Width 12.5 % (11.5-14.5); Segmented Neutrophils % 56.4 %
[2017-12-30 06:52] LABS: Calcium 8.7 mg/dL (8.6-10.3)
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
[2017-12-30] MEDS: Aspirin Enteric Coated 81 MG Tablet PO SCH ×2 (11:29→20:52)
[2017-12-30] MEDS: Insulin LISPRO 300 UNITS/3 ML VIAL SQ SCH ×4 (11:29→20:54)
[2017-12-30] MEDS: Apixaban 5 MG TABLET PO SCH ×2 (11:29→20:52)
[2017-12-30] MEDS: Cyanocobalamin (B-12) 1,000 MCG TABLET PO SCH (11:38)
[2017-12-30] MEDS: Insulin DETEMIR 100 UNIT/ML X5UNITS SQ SCH (20:52)
[2017-12-31 02:01] LABS: Basophils # 0.1 K/mcL (0.0-0.2); Basophils % 0.7 %; Eosinophils # 0.2 K/mcL (0.0-0.6); Eosinophils % 2.5 %; Hematocrit 45.9 % (37.5-50.1); Hemoglobin 15.7 g/dL (12.9-16.9); Immature Granulocytes % 1.1 % (0-4); Lymphocytes # 2.5 K/mcL (0.6-4.6); Lymphocytes % 32.8 %; Mean Corpuscular HGB Conc 34.2 g/dL (31.6-35.5); Mean Corpuscular Hemoglobin 31.8 pg (28.0-33.3); Mean Corpuscular Volume 92.9 fL (83.0-100.0); Mean Platelet Volume 10.4 fL (9.4-12.4); Monocytes # 0.5 K/mcL (0.0-1.3); Monocytes % 6.4 %; Neutrophils # 4.3 K/mcL (1.6-8.9); Platelet Count 176 K/mcL (140-400); Red Blood Count 4.94 M/mcL (4.19-5.50); Red Cell Distribution Width 12.4 % (11.5-14.5); Segmented Neutrophils % 56.5 %
[2017-12-31 02:12] LABS: Potassium 4.2 mEq/L (3.5-5.1)
[2017-12-31] MEDS: 0.9 % Sodium Chloride 1,000 ML IVC SCH (03:05)
[2017-12-31] MEDS: Insulin LISPRO 300 UNITS/3 ML VIAL SQ SCH ×2 (08:00→11:41)
[2017-12-31] MEDS: Cyanocobalamin (B-12) 1,000 MCG TABLET PO SCH (08:01)
[2017-12-31] MEDS: Apixaban 5 MG TABLET PO SCH (08:02)
[2017-12-31] MEDS: Aspirin Enteric Coated 81 MG Tablet PO SCH (08:02)
[2017-12-31 10:57] VITALS: BP 126/72
== END 2017-12-31 16:09 | disposition home or self-care (01) ==
LOC: EMEROO 10:30 → 2NENU 10:30 → SUATTDRO 14:03 → 2NENU 14:20
PROVIDERS: ADMIT Internal Medicine; ATTEND Internal Medicine

== ENCOUNTER 2018-04-19 20:16 | Observation (INO) ==
[2018-04-19 20:50] LABS: Basophils # 0.1 K/mcL (0.0-0.2); Basophils % 0.7 %; Eosinophils # 0.1 K/mcL (0.0-0.6); Eosinophils % 0.9 %; Hematocrit 45.4 % (37.5-50.1); Immature Granulocytes % 0.9 % (0-4); Lymphocytes # 2.2 K/mcL (0.6-4.6); Lymphocytes % 25.6 %; Mean Corpuscular HGB Conc 35.2 g/dL (31.6-35.5); Mean Corpuscular Hemoglobin 31.5 pg (28.0-33.3); Mean Corpuscular Volume 89.4 fL (83.0-100.0); Mean Platelet Volume 10.4 fL (9.4-12.4); Monocytes # 0.5 K/mcL (0.0-1.3); Monocytes % 6.2 %; Neutrophils # 5.7 K/mcL (1.6-8.9); Platelet Count 163 K/mcL (140-400); Red Blood Count 5.08 M/mcL (4.19-5.50); Red Cell Distribution Width 12.7 % (11.5-14.5); Segmented Neutrophils % 65.7 %
[2018-04-19 20:57] LABS: INR 1.5; Prothrombin Time 16.6 Seconds (9.4-12.1)
[2018-04-19 21:00] LABS: Activated Partial Thrombo Time 36.9 Seconds (26.0-36.0)
[2018-04-19 21:07] LABS: BUN/Creatinine Ratio 23 (6-26); Blood Urea Nitrogen 34 mg/dL (8-23); Calcium 10.1 mg/dL (8.6-10.3); Carbon Dioxide 22 mEq/L (23-29); Chloride 101 mEq/L (98-107); Glucose 243 mg/dL (70-105); Osmolality,Calculated 296 (280-300); Potassium 4.4 mEq/L (3.5-5.1); Sodium 135 mEq/L (136-145); eGFR For African Americans 57 (> 60); eGFR For Non-African Americans 47 (> 60)
[2018-04-19 21:08] LABS: Troponin I < 0.03 ng/mL (< 0.04)
[2018-04-19] MEDS ORDERED: 0.9 % Sodium Chloride 500 ML IVC ONE (21:27)
[2018-04-19 21:57] LABS: VBG HCO3 26 mEq/L (21-27); VBG PCO2 40 mmHg (41-51); VBG PH 7.42 pH Units (7.32-7.42); VBG PO2 125 mmHg (25-50)
[2018-04-19 22:16] LABS: Bilirubin,Urine Negative (Negative); Blood,Urine Trace (Negative); Clarity,Urine Cloudy (Clear); Color,Urine Yellow (Yellow); Glucose,Urine (UA) >=1000 mg/dL (Normal); Ketones,Urine Negative (Negative); Leukocyte Esterase,Urine Negative (Negative); Nitrite,Urine Negative (Negative); Protein,Urine 100 mg/dL (Neg-Trace); Specific Gravity,Urine 1.022 (1.010-1.025); Urobilinogen,Urine Normal (Normal)
[2018-04-19 22:18] LABS: Bacteria,Urine None Seen per hpf (None-Few); Hyaline Casts,Urine None Seen per lpf (None-Few); Squamous Epithelial Cell,Urine Many per lpf (None-Few); WBC,Urine 0-3 per hpf (0-3)
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
[2018-04-20] MEDS ORDERED: Naloxone 0.4 MG/ML INJ IVP PRN (01:16)
[2018-04-20] MEDS ORDERED: Acetaminophen 325 MG TABLET PO PRN (01:16)
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
[2018-04-20] MEDS ORDERED: D5% in Water 1,000 ML IVC PRN (01:29)
[2018-04-20] MEDS ORDERED: Dextrose Gel 15 GM/37.5 ML TUBE PO PRN ×2 (01:29)
[2018-04-20] MEDS ORDERED: *HR* Dextrose 50 % in Water (Syg) 50 ML SYRINGE IVP PRN (01:29)
[2018-04-20] MEDS: Insulin DETEMIR 100 UNIT/ML X5UNITS SQ SCH ×2 (01:47→20:38)
[2018-04-20 04:01] LABS: Hematocrit 44.7 % (37.5-50.1); Hemoglobin 15.6 g/dL (12.9-16.9); Mean Corpuscular HGB Conc 34.9 g/dL (31.6-35.5); Mean Corpuscular Volume 91.8 fL (83.0-100.0); Mean Platelet Volume 10.8 fL (9.4-12.4); Platelet Count 149 K/mcL (140-400); Red Blood Count 4.87 M/mcL (4.19-5.50); Red Cell Distribution Width 12.7 % (11.5-14.5)
[2018-04-20 04:15] LABS: BUN/Creatinine Ratio 25 (6-26); Blood Urea Nitrogen 32 mg/dL (8-23); Calcium 9.2 mg/dL (8.6-10.3); Carbon Dioxide 23 mEq/L (23-29); Chloride 104 mEq/L (98-107); Glucose 216 mg/dL (70-105); Osmolality,Calculated 293 (280-300); Potassium 4.1 mEq/L (3.5-5.1); Sodium 135 mEq/L (136-145); eGFR For African Americans > 60 (> 60); eGFR For Non-African Americans 54 (> 60)
[2018-04-20] MEDS: Insulin LISPRO 300 UNITS/3 ML VIAL SQ SCH ×3 (07:40→16:19)
[2018-04-20] MEDS: Apixaban 5 MG TABLET PO SCH ×2 (07:41→20:37)
[2018-04-20] MEDS: Aspirin Enteric Coated 81 MG Tablet PO SCH ×2 (07:41→20:37)
[2018-04-20] MEDS: Cyanocobalamin (B-12) 1,000 MCG TABLET PO SCH (07:41)
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
[2018-04-21 04:26] LABS: Basophils # 0.1 K/mcL (0.0-0.2); Basophils % 0.8 %; Eosinophils # 0.2 K/mcL (0.0-0.6); Eosinophils % 2.6 %; Hematocrit 43.6 % (37.5-50.1); Hemoglobin 15.2 g/dL (12.9-16.9); Immature Granulocytes % 1.4 % (0-4); Lymphocytes # 2.8 K/mcL (0.6-4.6); Lymphocytes % 36.3 %; Mean Corpuscular HGB Conc 34.9 g/dL (31.6-35.5); Mean Corpuscular Hemoglobin 32.3 pg (28.0-33.3); Mean Corpuscular Volume 92.6 fL (83.0-100.0); Mean Platelet Volume 10.7 fL (9.4-12.4); Monocytes # 0.7 K/mcL (0.0-1.3); Monocytes % 8.8 %; Neutrophils # 3.8 K/mcL (1.6-8.9); Platelet Count 140 K/mcL (140-400); Red Blood Count 4.71 M/mcL (4.19-5.50); Red Cell Distribution Width 12.6 % (11.5-14.5); Segmented Neutrophils % 50.1 %
[2018-04-21 04:53] LABS: Chol/HDL Ratio 4.2 (0-4.9); Potassium 4.2 mEq/L (3.5-5.1)
[2018-04-21] MEDS: Aspirin Enteric Coated 81 MG Tablet PO SCH ×2 (08:33→20:57)
[2018-04-21] MEDS: Apixaban 5 MG TABLET PO SCH ×2 (08:33→20:58)
[2018-04-21] MEDS: Cyanocobalamin (B-12) 1,000 MCG TABLET PO SCH (08:33)
[2018-04-21] MEDS: Insulin LISPRO 300 UNITS/3 ML VIAL SQ SCH ×3 (08:37→16:46)
--- NOTE | 2018-04-21 15:55 | Internal Med Progress Note ---
Date of Encounter: 04/21/18 Time of Encounter: 15:52 - Assessment and plan (1) Acute encephalopathy Current Visit: Yes Status: Acute Assessment and plan: The patient presented with confusion and altered mental status, he was acutely encephalopathic, etiology unclear. No metabolic abnormalities identified, no obvious infective source for cause of confusion. Possibly caused by hyperthermia with prolonged sun exposure. His car broke down along the side of the road and he was found by a [facility] highway patrolman in a confused state However, he may also have some undiagnosed dementia as well as sundowners. Was noted to have bouts of confusion overnight When questioned about this the patient was not aware of confusion overnight however admits that he has been told this does happen at home Given confusion the patient is a safety risk to send home, get PT/OT evaluation for further assessment and recommendations He reports that he lives at home with his brother but neither of them have a full-time caregiver just a live-in roommate who sometimes helps out Patient appears to be alert and oriented 3 today, but is confused about events which led to hospitalization At this time I do not believe that the patient has had a CVA/TIA. [facility] neurology assessed the patient in the emergency department and notes a low risk for CVA CT examination showed no acute intracranial abnormality but does show chronic changes including-chronic infarcts within medial left occipital lobe and left cerebellum. Chronic lacunar infarcts within the left thalamus. Chronic small vessel ischemic white matter disease and cerebral volume loss MRI head/brain obtained, no acute infarct or acute intracranial process, remote infarcts, mild chronic small vessel ischemic changes and remote microhemorrhages in the leela and left frontal lobe B/L carotid duplex with no flow-limiting stenosis - -TTE now-09/2017 shows mild pulmonic regurgitation, mild mitral regurgitation, trace tricuspid regurgitation, LVEF 50% -Continue ASA -Continue Statin -CBC, BMP/CMP, Lipid panel in am -Continue eliquis for DVT prophylaxis -Consult PT/OT as well as elementary school social worker (2) Altered mental status Current Visit: Yes Status: Acute Assessment and plan: See above Qualifiers: Altered mental status type: disorientation Qualified Code(s): R41.0 - Disorientation, unspecified (3) Acute hyperglycemia Current Visit: No Status: Acute Assessment and plan: History of type 2 diabetes, hyperglycemic on arrival Continue basal insulin coverage and low sliding scale (4) Atrial fibrillation with RVR Current Visit: No Status: Acute Assessment and plan: History of atrial fibrillation Presented with acute exacerbation, A. fib RVR per my review of the EKG Continue eliquis, aspirin, beta therese which is what the patient takes at home No electrolyte disturbances noted on lab work Patient appears euvolemic Currently rate controlled with metoprolol Continue telemetry now (5) Chronic kidney disease (CKD) Current Visit: No Status: Acute Assessment and plan: History of CKD stage III Renal function at baseline Avoid nephrotoxins monitor renal function daily Qualifiers: Chronic kidney disease stage: stage 3 (moderate) Qualified Code(s): N18.3 - Chronic kidney disease, stage 3 (moderate) (6) Diabetes mellitus, type 2 Current Visit: No Status: Acute Assessment and plan: See above Qualifiers: Qualified Code(s): E11.21 - Type 2 diabetes mellitus with diabetic nephropathy; Z79.4 - technician terminal and repeater (current) use of insulin (7) HLD (hyperlipidemia) Current Visit: No Status: Chronic Assessment and plan: Continue Lipitor Recheck lipid panel in the morning Qualifiers: Hyperlipidemia type: mixed hyperlipidemia Qualified Code(s): E78.2 - Mixed hyperlipidemia (8) HTN (hypertension) Current Visit: No Status: Chronic Assessment and plan: History of hypertension BP stable with morning, hypotension this afternoon with a BP of 97/62 Monitor BP closely Discontinue lisinopril Continue metoprolol as patient does have atrial fibrillation and is taking this for rate control May need to decrease metoprolol dose depending on blood pressure overnight Given patient's age systolic blood pressure in the 160s is okay Continue to monitor closely and adjust medications accordingly Qualifiers: Hypertension type: essential hypertension Qualified Code(s): I10 - Essential (primary) hypertension (9) Confusion Current Visit: No Status: Resolved Assessment and plan: Per today's assessment the patient is alert and oriented 3 Intermittent bouts of confusion and recalling events that led to hospital stay Nursing staff reported confusion overnight, likely has some component of ' Patient does report that he has been told he is confused in the evenings He was unaware of his actions throughout yesterday evening This makes him a safety risk to go home as he does also have some gait instability likely caused by age-related changes See above (10) DVT prophylaxis Current Visit: No Status: Acute Assessment and plan: Taking eliquis - Time Spent With Patient Total time spent is greater than 50% in coordination of care (as documented) at patient's floor/unit and/or counseling patient: 25 - 35 minutes - Subjective Interval history: Patient seen and examined at bedside today. No acute changes overnight. Reports that he feels better this morning. Denies any neurological signs or symptoms - Constitutional Vitals: Temp Pulse Resp BP Pulse Ox 98.4 F 64 15 97/62 96 04/21/18 10:40 04/21/18 10:40 04/21/18 10:40 04/21/18 10:40 04/21/18 10:40 General appearance: Present: A&O X 3, pleasant, no acute distress - Head Head exam: Present: atraumatic, normocephalic - Eye Eye exam: Present: PERRL, conjuntiva pink, sclera anicteric Pupils: Present: PERRL - Neck Neck exam general surgery: Present: supple, trachea midline. Absent: lymphadenopathy - Respiratory Respiratory exam: Present: CTAB. Absent: accessory muscle use, rales, rhonchi, wheezes - Cardiovascular Cardiovascular exam: Present: RRR, +S1, +S2. Absent: diastolic murmur, gallop, rubs, systolic murmur - GI/Abdominal GI/Abdominal exam: Present: normal bowel sounds, soft, no peritoneal signs. Absent: distended, tenderness - Extremities Exam Extremities exam: Present: warm, radial pulses palpable and symmetrical. Absent : calf tenderness, cyanotic, pedal edema - Neurological Exam Neurological exam: Present: CN II-XII intact, oriented X3, no focal deficits. Absent: pronater drift, facial droop, speech deficit - Skin Skin exam: Present: dry, intact Internal Medicine: Result - Labs CBC & Chem 7: 04/21/18 04:15 04/21/18 04:15 Labs: Short CBC 04/21/18 Range/Units 04:15 WBC 7.6 (4.3-11.1) K/mcL Hgb 15.2 (12.9-16.9) g/dL Hct 43.6 (37.5-50.1) % Plt Count 140 (140-400) K/mcL Neutrophils # 3.8 (1.6-8.9) K/mcL BMP 04/21/18 04:15 Sodium 138 Potassium 4.2 Chloride 104 Carbon Dioxide 26 BUN 32 H Creatinine 1.45 H Glucose 163 H Calcium 9.0 - ABG Interpretation ABG results: PT/INR, D-dimer PT 16.6 Seconds (9.4-12.1) H 04/19/18 20:35 Consult Discharge Plan - Plan [facility]errals: [facility] [Primary Care Provider] -
[2018-04-21] MEDS: Insulin DETEMIR 100 UNIT/ML X5UNITS SQ SCH (20:58)
[2018-04-22 04:28] LABS: Basophils # 0.1 K/mcL (0.0-0.2); Basophils % 0.8 %; Eosinophils # 0.2 K/mcL (0.0-0.6); Hematocrit 43.1 % (37.5-50.1); Hemoglobin 15.1 g/dL (12.9-16.9); Immature Granulocytes % 1.8 % (0-4); Lymphocytes # 2.6 K/mcL (0.6-4.6); Lymphocytes % 36.8 %; Mean Corpuscular Hemoglobin 32.3 pg (28.0-33.3); Mean Corpuscular Volume 92.3 fL (83.0-100.0); Mean Platelet Volume 11.2 fL (9.4-12.4); Monocytes # 0.6 K/mcL (0.0-1.3); Monocytes % 7.9 %; Neutrophils # 3.5 K/mcL (1.6-8.9); Platelet Count 150 K/mcL (140-400); Red Blood Count 4.67 M/mcL (4.19-5.50); Red Cell Distribution Width 12.7 % (11.5-14.5); Segmented Neutrophils % 49.7 %
[2018-04-22 05:08] LABS: Calcium 9.1 mg/dL (8.6-10.3); Potassium 3.9 mEq/L (3.5-5.1)
[2018-04-22] MEDS: Apixaban 5 MG TABLET PO SCH (08:48)
[2018-04-22] MEDS: Aspirin Enteric Coated 81 MG Tablet PO SCH (08:48)
[2018-04-22] MEDS: Cyanocobalamin (B-12) 1,000 MCG TABLET PO SCH (08:48)
[2018-04-22] MEDS: Insulin LISPRO 300 UNITS/3 ML VIAL SQ SCH ×3 (08:50→16:00)
--- NOTE | 2018-04-22 10:01 | Internal Med Progress Note ---
Date of Encounter: 04/22/18 Time of Encounter: 09:57 - Assessment and plan (1) Acute encephalopathy Current Visit: Yes Status: Resolved Assessment and plan: Resolved The patient presented with confusion and altered mental status, he was acutely encephalopathic, etiology unclear. No metabolic abnormalities identified, no obvious infective source for cause of confusion. Possibly caused by hyperthermia with prolonged sun exposure. His car broke down along the side of the road and he was found by a count includes the [facility] highway patrolman in a confused state However, he may also have some undiagnosed dementia as well as sundowners. Was noted to have bouts of confusion throughout the evening of 04/20/18 When questioned about this the patient was not aware of confusion, however, he admits that he has been told this does happen at home sometimes Patient lives with his brother and roommate but his brother is also elderly and not in the best of health Given confusion the patient is a safety risk to send home, get PT/OT evaluation as he does have some gait instability which he reports as chronic patient services clerk to evaluate as well to assess for the need for and to potenially set-up home health Patient appears to be alert and oriented 3 today, has mild confusion yesterday but this has since resolved CVA/TIA ruled out throughout stay CT examination showed no acute intracranial abnormality but does show chronic changes including-chronic infarcts within medial left occipital lobe and left cerebellum. Chronic lacunar infarcts within the left thalamus. Chronic small vessel ischemic white matter disease and cerebral volume loss MRI head/brain obtained, no acute infarct or acute intracranial process, remote infarcts, mild chronic small vessel ischemic changes and remote microhemorrhages in the leela and left frontal lobe B/L carotid duplex with no flow-limiting stenosis -TTE now-09/2017 shows mild pulmonic regurgitation, mild mitral regurgitation, trace tricuspid regurgitation, LVEF 50% -Plan is for discharge this afternoon (2) Altered mental status Current Visit: Yes Status: Resolved Assessment and plan: resolved Qualifiers: Altered mental status type: disorientation Qualified Code(s): R41.0 - Disorientation, unspecified (3) Acute hyperglycemia Current Visit: No Status: Acute Assessment and plan: History of type 2 diabetes, hyperglycemic on arrival blood glucose 158 this morning discharge on home diabetic regimen (4) Atrial fibrillation with RVR Current Visit: No Status: Acute Assessment and plan: History of atrial fibrillation Presented with acute exacerbation, A. fib RVR per my review of the EKG rate controlled throughout stay eliquis, aspirin, beta therese cont while inpatient; cont at d/c (5) Chronic kidney disease (CKD) Current Visit: No Status: Acute Assessment and plan: renal function stable Qualifiers: Chronic kidney disease stage: stage 3 (moderate) Qualified Code(s): N18.3 - Chronic kidney disease, stage 3 (moderate) (6) Diabetes mellitus, type 2 Current Visit: No Status: Acute Qualifiers: Qualified Code(s): E11.21 - Type 2 diabetes mellitus with diabetic nephropathy; Z79.4 - jail (current) use of insulin (7) HLD (hyperlipidemia) Current Visit: No Status: Chronic Assessment and plan: Continue Lipitor Recheck lipid panel in the morning Qualifiers: Hyperlipidemia type: mixed hyperlipidemia Qualified Code(s): E78.2 - Mixed hyperlipidemia (8) HTN (hypertension) Current Visit: No Status: Chronic Assessment and plan: History of hypertension BP stable with morning episodes of hypotension yesterday, lisinopril discontinued, blood pressure improved and now stable -We will not resume lisinopril at discharge, follow-up with PCP for further regulation of blood pressure Continue metoprolol at discharge for HTN and rate control with ANayan paige Qualifiers: Hypertension type: essential hypertension Qualified Code(s): I10 - Essential (primary) hypertension (9) Confusion Current Visit: No Status: Resolved (10) DVT prophylaxis Current Visit: No Status: Acute - Time Spent With Patient Total time spent is greater than 50% in coordination of care (as documented) at patient's floor/unit and/or counseling patient: 25 - 35 minutes - Subjective Interval history: Patient seen and examined at bedside today. No acute changes overnight. Reports that he feels better this morning and is ready for discharge - Constitutional Vitals: Temp Pulse Resp BP Pulse Ox 97.9 F 69 14 108/66 97 04/22/18 07:20 04/22/18 07:20 04/22/18 07:20 04/22/18 07:20 04/22/18 07:20 General appearance: Present: A&O X 3, pleasant, no acute distress - Head Head exam: Present: atraumatic, normocephalic - Eye Eye exam: Present: EOMI, PERRL, conjuntiva pink, sclera anicteric Pupils: Present: PERRL - Neck Neck exam general surgery: Present: supple, trachea midline. Absent: lymphadenopathy - Respiratory Respiratory exam: Present: CTAB. Absent: accessory muscle use, rales, rhonchi, wheezes - Cardiovascular Cardiovascular exam: Present: RRR, +S1, +S2. Absent: diastolic murmur, gallop, rubs, systolic murmur - GI/Abdominal GI/Abdominal exam: Present: normal bowel sounds, soft, no peritoneal signs. Absent: distended, tenderness - Extremities Exam Extremities exam: Present: warm, radial pulses palpable and symmetrical. Absent : calf tenderness, cyanotic, pedal edema - Neurological Exam Neurological exam: Present: CN II-XII intact, oriented X3, no focal deficits. Absent: pronater drift, facial droop, speech deficit - Skin Skin exam: Present: dry, intact Internal Medicine: Result - Labs CBC & Chem 7: 04/22/18 03:25 04/22/18 03:25 Labs: Short CBC 04/22/18 Range/Units 03:25 WBC 7.1 (4.3-11.1) K/mcL Hgb 15.1 (12.9-16.9) g/dL Hct 43.1 (37.5-50.1) % Plt Count 150 (140-400) K/mcL Neutrophils # 3.5 (1.6-8.9) K/mcL BMP 04/22/18 03:25 Sodium 137 Potassium 3.9 Chloride 106 Carbon Dioxide 22 L BUN 38 H Creatinine 1.46 H Glucose 177 H Calcium 9.1 - ABG Interpretation ABG results: PT/INR, D-dimer PT 16.6 Seconds (9.4-12.1) H 04/19/18 20:35 Consult Discharge Plan - Plan [facility]errals: [facility] [Primary Care Provider] -
--- NOTE | 2018-04-22 15:28 | Discharge Summary ---
- NOTES TO OUTPATIENT PROVIDER Notes to Outpatient Provider: seen for acute encephalopthy; self limited and resloved. CVA/TIA w/u unremarkable. returned to baseline. thought to be caused by hyperthermia with prolonged sun exposure; no obvious infective soure causing encephalopathy. May have mild undiagnosed dementia, and some sundowners. PT/OT team evaluation complete and patient ambulates safely and able to provide adequate self care. back to [facility] as far as mental status is concerned without any episodes of confusion today or last night Orders not resulted at time of discharge: Pending orders 04/23/18 04:00 Basic Metabolic Panel AM 0400 Complete Blood Count [HEME] AM 0400 Date of Encounter: 04/22/18 Time of Encounter: 15:23 - Discharge Diagnosis (1) Acute encephalopathy Priority: Primary Status: Resolved Assessment and Plan: Resolved The patient presented with confusion and altered mental status, he was acutely encephalopathic, etiology unclear. No metabolic abnormalities identified, no obvious infective source for cause of confusion. Possibly caused by hyperthermia with prolonged sun exposure. His car broke down along the side of the road and he was found by a [facility] highway patrolman in a confused state However, he may also have some undiagnosed dementia as well as sundowners. 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 Chronic lacunar infarcts within the left thalamus. Chronic small vessel ischemic white matter disease and cerebral volume loss MRI head/brain obtained, no acute infarct or acute intracranial process, remote infarcts, mild chronic small vessel ischemic changes and remote microhemorrhages in the leela and left frontal lobe B/L carotid duplex with no flow-limiting stenosis -TTE now-09/2017 shows mild pulmonic regurgitation, mild mitral regurgitation, trace tricuspid regurgitation, LVEF 50% -Plan is for discharge this afternoon (2) Altered mental status Priority: Secondary Status: Resolved Assessment and Plan: resolved Qualifiers: Altered mental status type: disorientation Qualified Code(s): R41.0 - Disorientation, unspecified (3) Acute hyperglycemia Priority: Secondary Status: Acute Assessment and Plan: History of type 2 diabetes, hyperglycemic on arrival blood glucose 158 this morning discharge on home diabetic regimen (4) Atrial fibrillation with RVR Priority: Secondary Status: Acute Assessment and Plan: History of atrial fibrillation Presented with acute exacerbation, A. fib RVR per my review of the EKG rate controlled throughout stay eliquis, aspirin, beta therese cont while inpatient; cont at d/c (5) Chronic kidney disease (CKD) Priority: Secondary Status: Acute Assessment and Plan: renal function stable Qualifiers: Chronic kidney disease stage: stage 3 (moderate) Qualified Code(s): N18.3 - Chronic kidney disease, stage 3 (moderate) (6) Diabetes mellitus, type 2 Priority: Secondary Status: Acute Assessment and Plan: See above Qualifiers: Qualified Code(s): E11.21 - Type 2 diabetes mellitus with diabetic nephropathy; Z79.4 - custodial (current) use of insulin (7) HLD (hyperlipidemia) Priority: Secondary Status: Chronic Assessment and Plan: Continue Lipitor Recheck lipid panel in the morning Qualifiers: Hyperlipidemia type: mixed hyperlipidemia Qualified Code(s): E78.2 - Mixed hyperlipidemia (8) HTN (hypertension) Priority: Secondary Status: Chronic Assessment and Plan: History of hypertension BP stable with morning episodes of hypotension yesterday, lisinopril discontinued, blood pressure improved and now stable -We will not resume lisinopril at discharge, follow-up with PCP for further regulation of blood pressure Continue metoprolol at discharge for HTN and rate control with A. fib Qualifiers: Hypertension type: essential hypertension Qualified Code(s): I10 - Essential (primary) hypertension (9) Confusion Priority: Secondary Status: Resolved Assessment and Plan: Per today's assessment the patient is alert and oriented 3 Intermittent bouts of confusion and recalling events that led to hospital stay Nursing staff reported confusion overnight, likely has some component of 's Patient does report that he has been told he is confused in the evenings He was unaware of his actions throughout yesterday evening This makes him a safety risk to go home as he does also have some gait instability likely caused by age-related changes See above (10) DVT prophylaxis Priority: Secondary Status: Acute Hospital course: Mr. Subramanian is a 77 year old male see assessment and plan for hospital course Discharge discussed with: patient, nurse - Time Spent with Patient Total time spent providing and/or coordinating discharge services: Less than 30 minutes - Discharge Medications Home Medications: Aspirin Enteric Coated [Aspirin EC] 81 mg PO BID 06/05/17 [History] Atorvastatin [Lipitor] 10 mg PO HS 06/05/17 [History] Lisinopril [Zestril] 2.5 mg PO DAILY 06/05/17 [History] Metoprolol [Lopressor] 25 mg PO BID 06/05/17 [History] Terazosin [Hytrin] 1 mg PO DAILY 06/05/17 [History] Apixaban [Eliquis] 5 mg PO BID 10/14/17 [History] Cyanocobalamin (Vitamin B-12) [Vitamin B12] 1,000 mcg PO DAILY 10/14/17 [History ] Insulin Glargine,Hum.rec.anlog [Lantus Solostar] 20 unit SQ HS 10/14/17 [History ] Insulin Regular, Human [Novolin R] 10 unit SQ TIDWM 10/14/17 [History] Naproxen [Naprosyn] 500 mg PO BID 10/14/17 [History] Albuterol Sulfate [Albuterol Inhaler] 2 puff IH Q6H PRN 12/29/17 [History] Allergies/Adverse Reactions: 3 Allergy/AdvReac Type Severity Reaction Status Date / Time IV Contrast Allergy Anaphylaxis Uncoded 10/14/17 15:15 Date of admission: 04/19/18 23:53 Primary care physician: [facility] Consults: 04/20/18 08:37 Consult to Physical Therapy [CONS] Routine Comment: Evaluate, develop and implement POC Reason for Consult: Weakness Does patient have active BEDREST order?: No Is patient medically & hemodynamically stable?: Yes Patient assessed for mobility or mobilized this visit?: No 04/20/18 08:39 Consult to Cancer Registrar [CONS] Routine Reason for SW Consult: AMS, potential ECF placement. Discharging clinician: Benji Castle Anticipated date of discharge: 04/22/18 - Constitutional Vitals: Temp Pulse Resp BP Pulse Ox 97.8 F 64 14 110/64 98 04/22/18 12:01 04/22/18 12:01 04/22/18 12:01 04/22/18 12:01 04/22/18 12:01 General appearance: Present: A&O X 3, pleasant, no acute distress - Head Head exam: Present: atraumatic, normocephalic - Eye Eye exam: Present: PERRL, conjuntiva pink, sclera anicteric Pupils: Present: PERRL - Neck Neck exam general surgery: Present: supple, trachea midline. Absent: lymphadenopathy - Respiratory Respiratory exam: Present: CTAB. Absent: accessory muscle use, rales, rhonchi, wheezes - Cardiovascular Cardiovascular exam: Present: RRR, +S1, +S2. Absent: diastolic murmur, gallop, rubs, systolic murmur - GI/Abdominal GI/Abdominal exam: Present: normal bowel sounds, soft, no peritoneal signs. Absent: distended, tenderness - Extremities Exam Extremities exam: Present: warm, radial pulses palpable and symmetrical. Absent : calf tenderness, cyanotic, pedal edema - Neurological Exam Neurological exam: Present: CN II-XII intact, oriented X3, no focal deficits. Absent: pronater drift, facial droop, speech deficit - Skin Skin exam: Present: dry, intact - Patient Status Disposition: Home, Self-Care Condition: Good Functional capacity at discharge: independent ambulation Overall status at discharge: patient is back to baseline - Discharge Instructions Instructions: Atrial Fibrillation (DC) Follow Up With: [facility] [Primary Care Provider] - - Diet and Activity Activity: increase activity as tolerated, resume usual activities as tolerated Diet: advance to your usual diet
[2018-04-22 15:35] VITALS: BP 108/65
--- NOTE | 2018-04-22 17:07 | Physician Discharge Referral ---
Home Health/Hosp Referral Info Transfer to: Home Health Provider in Charge Post Discharge: PCP - Diagnosis (1) Acute encephalopathy Priority: Primary Status: Resolved (2) Altered mental status Priority: Secondary Status: Resolved (3) Acute hyperglycemia Priority: Secondary Status: Acute (4) Atrial fibrillation with RVR Priority: Secondary Status: Acute (5) Chronic kidney disease (CKD) Priority: Secondary Status: Acute (6) Diabetes mellitus, type 2 Priority: Secondary Status: Acute (7) HLD (hyperlipidemia) Priority: Secondary Status: Chronic (8) HTN (hypertension) Priority: Secondary Status: Chronic (9) Confusion Priority: Secondary Status: Resolved (10) DVT prophylaxis Priority: Secondary Status: Acute - Respiratory Orders Smoking Cessation: Smoking cessation has been advised. For more information, call the [facility] Quit Line at 5-209-APMSNOW. - Diet/Nutrition Diet/Nutrition Orders: Regular - Activity Activity Orders: Ambulate - Services Needed Following services are medically necessary services: Nursing, Home Health Aide - Transfer Medications Home Medications: Aspirin Enteric Coated [Aspirin EC] 81 mg PO BID 06/05/17 [History] Atorvastatin [Lipitor] 10 mg PO HS 06/05/17 [History] Lisinopril [Zestril] 2.5 mg PO DAILY 06/05/17 [History] Metoprolol [Lopressor] 25 mg PO BID 06/05/17 [History] Terazosin [Hytrin] 1 mg PO DAILY 06/05/17 [History] Apixaban [Eliquis] 5 mg PO BID 10/14/17 [History] Cyanocobalamin (Vitamin B-12) [Vitamin B12] 1,000 mcg PO DAILY 10/14/17 [History ] Insulin Glargine,Hum.rec.anlog [Lantus Solostar] 20 unit SQ HS 10/14/17 [History ] Insulin Regular, Human [Novolin R] 10 unit SQ TIDWM 10/14/17 [History] Naproxen [Naprosyn] 500 mg PO BID 10/14/17 [History] Albuterol Sulfate [Albuterol Inhaler] 2 puff IH Q6H PRN 12/29/17 [History] Allergies/Adverse Reactions: 3 Allergy/AdvReac Type Severity Reaction Status Date / Time IV Contrast Allergy Anaphylaxis Uncoded 10/14/17 15:15 Certification: Further, I certify that my clinical findings support that this patient is homebound (i.e. absences from home require considerable and taxing effort and are for medical reasons or worship services or infrequently or short duration when for other reasons) because: Homebound Reason: Patient requires assistance of a person or device to safely leave home Attestation: My signature below is to certify that this patient is under my care and that I, or nurse practitioner, or a physician's culinary assistant working with me, has a face-to -face encounter with this patient.
--- NOTE | 2018-04-22 17:48 | Electrocardiograph Report ---
[address] [place] [address] Test Date: 2018-04-19 Pat Name: Rafy Subramanian Department: 104 Room: 3B11 Gender: M Comptroller: BAILEY : 1940 Requested By: Tanner Fletcher Order Number: [id number] Reading MD: Rajeev Manriquez Measurements Intervals [place] Rate: 121 P: [place]: 0 QRS: -10 QRSD: 95 T: 13 QT: 310 QTc: 382 Interpretive Statements ATRIAL FIBRILLATION WITH RAPID VENTRICULAR RESPONSE ANTERIOR MYOCARDIAL INFARCTIO, OF INDETERMINATE AGE INFERIOR MYOCARDIAL INFARCTION, PROBABLY OLD Electronically Signed On 04-22-2018 17:46:52 EDT by Rajeev Manriquez
== END 2018-04-22 16:52 | disposition home or self-care (01) ==
LOC: 3BNU 20:16 → EMEROO 20:16 → 3BNU 04-20 00:07
PROVIDERS: ADMIT Internal Medicine Nephrology; ATTEND Internal Medicine Nephrology

== ENCOUNTER 2018-05-17 09:55 | Inpatient (IN) ==
[2018-05-17] MEDS ORDERED: *HR* Etomidate 20 MG/10 ML AMPUL IVP ONE ×2 (10:00→12:31)
[2018-05-17] MEDS ORDERED: *HR* Rocuronium Bromide 50 MG/5 ML VIAL IVP ONE (10:00)
[2018-05-17] MEDS ORDERED: 0.9 % Sodium Chloride 1,000 ML ONE ×2 (10:00→21:30)
[2018-05-17] MEDS: 0.9 % Sodium Chloride 1,000 ML IVC SCH ×3 (10:29→15:48)
[2018-05-17 10:51] LABS: ABG Base Excess -1 mEq/L (-2 to 3); ABG HCO3 23 mEq/L (21-27); ABG Oxygen Saturation 96 % (95-98); ABG PCO2 37 mmHg (35-45); ABG PH 7.41 pH Units (7.32-7.45); ABG PO2 84 mmHg (85-104); ABG TCO2 24 mEq/L (20-26); Blood Gas Modality VC; Blood Gas PEEP 5 cm H2O; Blood Gas Respiration Rate 12; Blood Gas VT 550 cc
--- NOTE | 2018-05-17 10:52 | Emergency Department Note ---
Disposition Clinical Impression: Colitis, Elevated lactic acid level Altered mental status Qualifiers: Altered mental status type: unspecified Qualified Code(s): R41.82 - Altered mental status, unspecified Disposition: Admitted As Inpatient Condition: Good [facility]errals: [facility]Primary Care Provider[facility] - Forms: ED Satisfaction Letter Altered Mental Status HPI - General Chief Complaint: ED Altered Mental Status Stated Complaint: unresponsive Time Seen by Provider: 05/17/18 09:59 Source: patient, EMS Mode of arrival: EMS Limitations: altered mental status Nursing Notes Reviewed: Yes Vital Signs Reviewed: Yes - History of Present Illness HPI Narrative: 77-year-old male presents to the ER via EMS due to altered mental status. Report from EMS is that at home the patient was at his baseline. His brother was there and when he saw him again this morning that he was acting confused. He was difficult to arouse that time. EMS was called and the patient was brought in for evaluation. He was noted to be hypotensive in transit. Upon arrival the patient was obtunded requiring emergent intubation for airway protection. Patient did have garbled speech prior to intubation. He did not follow commands. He also had a bowel movement in transit. MD complaint: altered mental status Onset (ago): Just [employer] REPRES[employer]IVE Timing confirmed by: family member - Related Data Home Medications Medication Instructions Recorded Confirmed Aspirin Enteric Coated [Aspirin EC] 81 mg PO BID 06/05/17 04/19/18 Atorvastatin [Lipitor] 10 mg PO HS 06/05/17 04/19/18 Lisinopril [Zestril] 2.5 mg PO DAILY 06/05/17 04/19/18 Metoprolol [Lopressor] 25 mg PO BID 06/05/17 04/19/18 Terazosin [Hytrin] 1 mg PO DAILY 06/05/17 04/19/18 Apixaban [Eliquis] 5 mg PO BID 10/14/17 04/19/18 Cyanocobalamin (Vitamin B-12) 1,000 mcg PO DAILY 10/14/17 04/19/18 [Vitamin B12] Insulin Glargine,Hum.rec.anlog 20 unit SQ HS 10/14/17 04/19/18 [Lantus Solostar] Insulin Regular, Human [Novolin R] 10 unit SQ TIDWM 10/14/17 04/19/18 Naproxen [Naprosyn] 500 mg PO BID 10/14/17 04/19/18 Albuterol Sulfate [Albuterol 2 puff IH Q6H PRN 12/29/17 04/19/18 Inhaler] Allergies Allergy/AdvReac Type Severity Reaction Status Date / Time IV Contrast Allergy Anaphylaxis Uncoded 10/14/17 15:15 Limitations: ROS unobtainable due to patients medical condition Past Medical History - Past Medical History Attestation: Yes The following information was validated with the patient. Source: old records reviewed Medical history: Reports: atrial fibrillation, diabetes, hyperlipidemia, hypertension, renal disease Psychiatric history: Reports: no psych history - Social History Smoking Status: Former smoker Smokeless Tobacco Status: No Alcohol use: Reports: occasionally Drug use: Reports: none Physical Exam - General Limitations: altered mental status General appearance: obtunded - Head Head exam: atraumatic, normocephalic, normal inspection - Eye Eye exam: Present: normal appearance - ENT ENT exam: normal exam - Neck Neck exam: Present: normal inspection - Chest Chest inspection: Present: normal inspection, symmetric chest wall rise - Respiratory Respiratory exam: Present: normal lung sounds bilaterally - Cardiovascular Cardiovascular exam: Present: regular rate, normal rhythm, normal heart sounds - Abdominal Exam Abdominal exam: Present: soft. Absent: distention, guarding, rigidity - Extremities Exam Extremities exam: Present: normal inspection - Expanded Upper Extremity Exam Shoulder exam: Present: normal inspection Arm exam: Present: normal inspection Elbow exam: Present: normal inspection Forearm/Wrist exam: Present: normal inspection Hand exam: Present: normal inspection - Expanded Lower Extremity Exam Hip/Pelvis exam: Present: normal inspection Upper leg exam: Present: normal inspection Knee exam: Present: normal inspection Lower leg exam: Present: normal inspection Ankle exam: Present: normal inspection Foot/toe exam: Present: normal inspection - Expanded Neurological Exam Coma Scale Eye Opening: None Coma Scale Motor Response: Withdraws to Pain Coma Scale Verbal Response: Incomprehensible Coma Scale Total: 7 - Skin Skin exam: Present: warm, dry Course Course Narrative: Patient seen and examined at time of arrival. GCS 7. Hypotensive in the high 80s systolic. Patient intubated please see procedure for details. Central line placed for hypotension. Plan for CT head, chest x-ray, labs, admission to the ICU. - Reevaluation(s) Reevaluation #1: Hypotensive after 1 L of fluids. Additional liter ordered as well as Levophed. Vital Signs Temperature 0 F L 05/17/18 10:05 Pulse Rate 69 05/17/18 10:05 Respiratory Rate 12 05/17/18 10:05 Blood Pressure 89/57 05/17/18 10:05 O2 Sat by Pulse Oximetry 92 05/17/18 10:05 Temperature 0 F L 05/17/18 10:05 Pulse Rate 70 05/17/18 12:47 Respiratory Rate 14 05/17/18 12:47 Blood Pressure 98/68 05/17/18 12:47 O2 Sat by Pulse Oximetry 97 05/17/18 12:47 Oxygen Delivery Oxygen Delivery Ventilator Procedures - Central Line Placement Right IJ Central Line Inserted*: Yes Central Line Insertion: emergent Procedural Pause: verify patient name and date of , assemble equipment and verify supplies Patient Placed on Monitor/Pulse Ox: Yes During the Procedure: clinician is wearing sterile gloves, cap, mask,& gown during insertion, sterile field and sterile technique are maintained, patient's face is covered with drape or mask and wearing a cap, everyone in room is wearing a mask Central Line Prep: Chlorhexidine scrub Prep the Procedure Site: apply chloraprep to the skin using a back and forth scrubbing motion, apply chloraprep for 30 seconds (upper body), 1-2 min ( femoral sites), allow prep to dry, drape the patient with a full body drape Ultrasound Used for Placement: Yes Central Line Lumen Inserted: triple Post Procedure: sutured in place, good blood return, all ports aspirated, flushed, capped, sterile dressing applied, guide wire removed and visualized, dressing is dated Post Procedure X-Ray: tip of catheter in good position Patient Tolerated Procedure: well Complications: none - Intubation sedative: Etomidate Mg Given: 20 paralytic: Rocuronium Mg Given: 100 Laryngoscope: Sofia ET Tube Size: 7 ET Tube Uncuffed: No Tube Secured Depth (cm): 23 Tube Secured Location: lips Tube Placement Confirmation: visualized tube passing through cords, equal breath sounds bilaterally, no breath sounds over epigastrium, confirmation by capnometry Patient Tolerated Procedure: well Intubation Complications: none Altered Mental Status - MDM Narrative Medical decision making narrative: 77-year-old male presenting obtunded. Previous admission for encephalopathy 1 month ago. Presented with a GCS of 7 necessitating intubation for airway protection. He was hypertensive on arrival and remained hypotensive despite IV fluid resuscitation. Patient was placed on Levophed. CT imaging demonstrates no acute intracerebral findings. CT abdomen demonstrates colitis. He did have 1 bowel movement in the department. Labs reviewed and otherwise unremarkable with the exception of a mildly elevated lactic acid. Patient treated with oral vancomycin and Zosyn. Admitted to the senior capital markets specialist service for further management. - Lab Data Lab results reviewed: Yes I reviewed the patient's lab results. Result diagrams: 05/17/18 10:51 05/17/18 10:51 Lab Results 05/17/18 05/17/18 05/17/18 Range/Units 09:58 10:48 10:51 WBC 9.2 (4.3-11.1) K/mcL RBC 5.25 (4.19-5.50) M/mcL Hgb 17.0 H (12.9-16.9) g/dL Hct 48.6 (37.5-50.1) % MCV 92.6 (83.0-100.0) fL MCH 32.4 (28.0-33.3) pg MCHC 35.0 (31.6-35.5) g/dL RDW 12.6 (11.5-14.5) % Plt Count 189 (140-400) K/mcL MPV 10.3 (9.4-12.4) fL Immature Gran % 0.9 (0-4) % Seg Neutrophils % 57.5 % Lymphocytes % 32.4 % Monocytes % 7.0 % Eosinophils % 1.5 % Basophils % 0.7 % Neutrophils # 5.3 (1.6-8.9) K/mcL Lymphocytes # 3.0 (0.6-4.6) K/mcL Monocytes # 0.6 (0.0-1.3) K/mcL Eosinophils # 0.1 (0.0-0.6) K/mcL Basophils # 0.1 (0.0-0.2) K/mcL PT (9.4-12.1) Seconds INR APTT (26.0-36.0) Seconds Sample Site L Brach ABG pH 7.41 (7.32-7.45) pH Units ABG pCO2 37 (35-45) mmHg ABG pO2 84 L (85-104) mmHg ABG HCO3 23 (21-27) mEq/L ABG Total CO2 24 (20-26) mEq/L ABG O2 Saturation 96 (95-98) % ABG Base Excess -1 (-2 to 3) mEq/L Andrew Test N/A VBG pH (7.32-7.42) pH Units VBG pCO2 (41-51) mmHg VBG pO2 (25-50) mmHg VBG HCO3 (21-27) mEq/L Respiration Rate 12 O2 Delivery Device Adult Vent Blood Gas Modality VC Inspired O2 30.0 (1-15=lpm rt18-665=%) Tidal Volume 550 cc PEEP 5 cm H2O Sodium (136-145) mEq/L Potassium (3.5-5.1) mEq/L Chloride (98-107) mEq/L Carbon Dioxide (23-29) mEq/L BUN (8-23) mg/dL Creatinine (0.70-1.30) mg/dL Est GFR ( Amer) (> 60) Est GFR (Non-Af Amer) (> 60) BUN/Creatinine Ratio (6-26) Glucose (70-105) mg/dL POC Glucose 276 H (70-99) mg/dL Calculated Osmolality (280-300) Lactic Acid (0.5-2.2) mmol/L Calcium (8.6-10.3) mg/dL Phosphorus (2.7-4.5) mg/dL Magnesium (1.6-2.6) mg/dL Total Bilirubin (0.3-1.0) mg/dL Direct Bilirubin (0.0-0.2) mg/dL Indirect Bilirubin (0.0-1.2) mg/dL AST (13-39) Units/L ALT (7-52) Units/L Alkaline Phosphatase (34-104) Units/L Troponin I (< 0.04) ng/mL B-Natriuretic Peptide (Less than 100) pg/mL Serum Total Protein (6.4-8.9) g/dL Albumin (3.5-5.7) g/dL Globulin (2.4-3.5) g/dL Albumin/Globulin Ratio (1.1-2.2) Lipase (11-82) Units/L Beta-Hydroxybutyric Acd (0.02-0.27) mmol/L Urine Color (Yellow) Urine Clarity (Clear) Urine pH (5.0-8.0) pH Units Ur Specific [place] (1.010-1.025) Urine Protein (Neg-Trace) mg/dL Urine Glucose (UA) (Normal) mg/dL Urine Ketones (Negative) mg/dL Urine Blood (Negative) Urine Nitrite (Negative) Urine Bilirubin (Negative) Urine Urobilinogen (Normal) mg/dL Ur Leukocyte Esterase (Negative) Urine Microscopic RBC (0-3) per hpf Urine Microscopic WBC (0-3) per hpf Ur Squamous Epith Cells (None-Few) per lpf Urine Bacteria (None-Few) per hpf Hyaline Casts (None-Few) per lpf Ur Culture Indicated? (NO) Urine Opiates Screen (Vbwhjn=793) ng/mL Ur Barbiturates Screen (Bubuxn=818) ng/mL Ur Phencyclidine Scrn (Cutoff=25) ng/mL Ur Amphetamines Screen (Qnzdrk=9800) ng/mL U Benzodiazepines Scrn (Yfzuth=295) ng/mL Urine Cocaine Screen (Cutoff= 300) ng/mL U Marijuana (THC) Screen (Cutoff = 50) ng/mL Ur Drug Screen Interp 05/17/18 05/17/18 05/17/18 Range/Units 10:51 10:51 10:51 WBC (4.3-11.1) K/mcL RBC (4.19-5.50) M/mcL Hgb (12.9-16.9) g/dL Hct (37.5-50.1) % MCV (83.0-100.0) fL MCH (28.0-33.3) pg MCHC (31.6-35.5) g/dL RDW (11.5-14.5) % Plt Count (140-400) K/mcL MPV (9.4-12.4) fL Immature Gran % (0-4) % Seg Neutrophils % % Lymphocytes % % Monocytes % % Eosinophils % % Basophils % % Neutrophils # (1.6-8.9) K/mcL Lymphocytes # (0.6-4.6) K/mcL Monocytes # (0.0-1.3) K/mcL Eosinophils # (0.0-0.6) K/mcL Basophils # (0.0-0.2) K/mcL PT 12.1 (9.4-12.1) Seconds INR 1.1 APTT 29.8 (26.0-36.0) Seconds Sample Site ABG pH (7.32-7.45) pH Units ABG pCO2 (35-45) mmHg ABG pO2 (85-104) mmHg ABG HCO3 (21-27) mEq/L ABG Total CO2 (20-26) mEq/L ABG O2 Saturation (95-98) % ABG Base Excess (-2 to 3) mEq/L Andrew Test VBG pH (7.32-7.42) pH Units VBG pCO2 (41-51) mmHg VBG pO2 (25-50) mmHg VBG HCO3 (21-27) mEq/L Respiration Rate O2 Delivery Device Blood Gas Modality Inspired O2 (1-15=lpm re87-466=%) Tidal Volume cc PEEP cm H2O Sodium 133 L (136-145) mEq/L Potassium 4.8 (3.5-5.1) mEq/L Chloride 99 (98-107) mEq/L Carbon Dioxide 23 (23-29) mEq/L BUN 23 (8-23) mg/dL Creatinine 1.59 H (0.70-1.30) mg/dL Est GFR ( Amer) 51 L (> 60) Est GFR (Non-Af Amer) 42 L (> 60) BUN/Creatinine Ratio 14 (6-26) Glucose 288 H (70-105) mg/dL POC Glucose (70-99) mg/dL Calculated Osmolality 290 (280-300) Lactic Acid (0.5-2.2) mmol/L Calcium 9.2 (8.6-10.3) mg/dL Phosphorus 3.1 (2.7-4.5) mg/dL Magnesium 1.8 (1.6-2.6) mg/dL Total Bilirubin 1.0 (0.3-1.0) mg/dL Direct Bilirubin 0.2 (0.0-0.2) mg/dL Indirect Bilirubin 0.8 (0.0-1.2) mg/dL AST 50 H (13-39) Units/L ALT 41 (7-52) Units/L Alkaline Phosphatase 98 (34-104) Units/L Troponin I < 0.03 (< 0.04) ng/mL B-Natriuretic Peptide (Less than 100) pg/mL Serum Total Protein 7.2 (6.4-8.9) g/dL Albumin 3.7 (3.5-5.7) g/dL Globulin 3.5 (2.4-3.5) g/dL Albumin/Globulin Ratio 1.1 (1.1-2.2) Lipase 31 (11-82) Units/L Beta-Hydroxybutyric Acd 0.12 (0.02-0.27) mmol/L Urine Color (Yellow) Urine Clarity (Clear) Urine pH (5.0-8.0) pH Units Ur Specific [place] (1.010-1.025) Urine Protein (Neg-Trace) mg/dL Urine Glucose (UA) (Normal) mg/dL Urine Ketones (Negative) mg/dL Urine Blood (Negative) Urine Nitrite (Negative) Urine Bilirubin (Negative) Urine Urobilinogen (Normal) mg/dL Ur Leukocyte Esterase (Negative) Urine Microscopic RBC (0-3) per hpf Urine Microscopic WBC (0-3) per hpf Ur Squamous Epith Cells (None-Few) per lpf Urine Bacteria (None-Few) per hpf Hyaline Casts (None-Few) per lpf Ur Culture Indicated? (NO) Urine Opiates Screen (Ypbvsb=779) ng/mL Ur Barbiturates Screen (Jjexjg=632) ng/mL Ur Phencyclidine Scrn (Cutoff=25) ng/mL Ur Amphetamines Screen (Bsqlvi=4809) ng/mL U Benzodiazepines Scrn (Nmfgem=992) ng/mL Urine Cocaine Screen (Cutoff= 300) ng/mL U Marijuana (THC) Screen (Cutoff = 50) ng/mL Ur Drug Screen Interp 05/17/18 05/17/18 05/17/18 Range/Units 10:51 10:51 11:11 WBC (4.3-11.1) K/mcL RBC (4.19-5.50) M/mcL Hgb (12.9-16.9) g/dL Hct (37.5-50.1) % MCV (83.0-100.0) fL MCH (28.0-33.3) pg MCHC (31.6-35.5) g/dL RDW (11.5-14.5) % Plt Count (140-400) K/mcL MPV (9.4-12.4) fL Immature Gran % (0-4) % Seg Neutrophils % % Lymphocytes % % Monocytes % % Eosinophils % % Basophils % % Neutrophils # (1.6-8.9) K/mcL Lymphocytes # (0.6-4.6) K/mcL Monocytes # (0.0-1.3) K/mcL Eosinophils # (0.0-0.6) K/mcL Basophils # (0.0-0.2) K/mcL PT (9.4-12.1) Seconds INR APTT (26.0-36.0) Seconds Sample Site ABG pH (7.32-7.45) pH Units ABG pCO2 (35-45) mmHg ABG pO2 (85-104) mmHg ABG HCO3 (21-27) mEq/L ABG Total CO2 (20-26) mEq/L ABG O2 Saturation (95-98) % ABG Base Excess (-2 to 3) mEq/L Andrew Test VBG pH 7.32 (7.32-7.42) pH Units VBG pCO2 50 (41-51) mmHg VBG pO2 59 H (25-50) mmHg VBG HCO3 26 (21-27) mEq/L Respiration Rate O2 Delivery Device Blood Gas Modality Inspired O2 (1-15=lpm gt73-532=%) Tidal Volume cc PEEP cm H2O Sodium (136-145) mEq/L Potassium (3.5-5.1) mEq/L Chloride (98-107) mEq/L Carbon Dioxide (23-29) mEq/L BUN (8-23) mg/dL Creatinine (0.70-1.30) mg/dL Est GFR ( Amer) (> 60) Est GFR (Non-Af Amer) (> 60) BUN/Creatinine Ratio (6-26) Glucose (70-105) mg/dL POC Glucose (70-99) mg/dL Calculated Osmolality (280-300) Lactic Acid 2.5 H (0.5-2.2) mmol/L Calcium (8.6-10.3) mg/dL Phosphorus (2.7-4.5) mg/dL Magnesium (1.6-2.6) mg/dL Total Bilirubin (0.3-1.0) mg/dL Direct Bilirubin (0.0-0.2) mg/dL Indirect Bilirubin (0.0-1.2) mg/dL AST (13-39) Units/L ALT (7-52) Units/L Alkaline Phosphatase (34-104) Units/L Troponin I (< 0.04) ng/mL B-Natriuretic Peptide 223 H (Less than 100) pg/mL Serum Total Protein (6.4-8.9) g/dL Albumin (3.5-5.7) g/dL Globulin (2.4-3.5) g/dL Albumin/Globulin Ratio (1.1-2.2) Lipase (11-82) Units/L Beta-Hydroxybutyric Acd (0.02-0.27) mmol/L Urine Color (Yellow) Urine Clarity (Clear) Urine pH (5.0-8.0) pH Units Ur Specific [place] (1.010-1.025) Urine Protein (Neg-Trace) mg/dL Urine Glucose (UA) (Normal) mg/dL Urine Ketones (Negative) mg/dL Urine Blood (Negative) Urine Nitrite (Negative) Urine Bilirubin (Negative) Urine Urobilinogen (Normal) mg/dL Ur Leukocyte Esterase (Negative) Urine Microscopic RBC (0-3) per hpf Urine Microscopic WBC (0-3) per hpf Ur Squamous Epith Cells (None-Few) per lpf Urine Bacteria (None-Few) per hpf Hyaline Casts (None-Few) per lpf Ur Culture Indicated? (NO) Urine Opiates Screen (Pjisqx=861) ng/mL Ur Barbiturates Screen (Txkdpp=602) ng/mL Ur Phencyclidine Scrn (Cutoff=25) ng/mL Ur Amphetamines Screen (Vasuer=3696) ng/mL U Benzodiazepines Scrn (Klkdyt=414) ng/mL Urine Cocaine Screen (Cutoff= 300) ng/mL U Marijuana (THC) Screen (Cutoff = 50) ng/mL Ur Drug Screen Inter 05/17/18 05/17/18 Range/Units 11:30 11:39 WBC (4.3-11.1) K/mcL RBC (4.19-5.50) M/mcL Hgb (12.9-16.9) g/dL Hct (37.5-50.1) % MCV (83.0-100.0) fL MCH (28.0-33.3) pg MCHC (31.6-35.5) g/dL RDW (11.5-14.5) % Plt Count (140-400) K/mcL MPV (9.4-12.4) fL Immature Gran % (0-4) % Seg Neutrophils % % Lymphocytes % % Monocytes % % Eosinophils % % Basophils % % Neutrophils # (1.6-8.9) K/mcL Lymphocytes # (0.6-4.6) K/mcL Monocytes # (0.0-1.3) K/mcL Eosinophils # (0.0-0.6) K/mcL Basophils # (0.0-0.2) K/mcL PT (9.4-12.1) Seconds INR APTT (26.0-36.0) Seconds Sample Site ABG pH (7.32-7.45) pH Units ABG pCO2 (35-45) mmHg ABG pO2 (85-104) mmHg ABG HCO3 (21-27) mEq/L ABG Total CO2 (20-26) mEq/L ABG O2 Saturation (95-98) % ABG Base Excess (-2 to 3) mEq/L Andrew Test VBG pH (7.32-7.42) pH Units VBG pCO2 (41-51) mmHg VBG pO2 (25-50) mmHg VBG HCO3 (21-27) mEq/L Respiration Rate O2 Delivery Device Blood Gas Modality Inspired O2 (1-15=lpm mc62-321=%) Tidal Volume cc PEEP cm H2O Sodium (136-145) mEq/L Potassium (3.5-5.1) mEq/L Chloride (98-107) mEq/L Carbon Dioxide (23-29) mEq/L BUN (8-23) mg/dL Creatinine (0.70-1.30) mg/dL Est GFR ( Amer) (> 60) Est GFR (Non-Af Amer) (> 60) BUN/Creatinine Ratio (6-26) Glucose (70-105) mg/dL POC Glucose (70-99) mg/dL Calculated Osmolality (280-300) Lactic Acid (0.5-2.2) mmol/L Calcium (8.6-10.3) mg/dL Phosphorus (2.7-4.5) mg/dL Magnesium (1.6-2.6) mg/dL Total Bilirubin (0.3-1.0) mg/dL Direct Bilirubin (0.0-0.2) mg/dL Indirect Bilirubin (0.0-1.2) mg/dL AST (13-39) Units/L ALT (7-52) Units/L Alkaline Phosphatase (34-104) Units/L Troponin I (< 0.04) ng/mL B-Natriuretic Peptide (Less than 100) pg/mL Serum Total Protein (6.4-8.9) g/dL Albumin (3.5-5.7) g/dL Globulin (2.4-3.5) g/dL Albumin/Globulin Ratio (1.1-2.2) Lipase (11-82) Units/L Beta-Hydroxybutyric Acd (0.02-0.27) mmol/L Urine Color Yellow (Yellow) Urine Clarity Clear (Clear) Urine pH 6.0 (5.0-8.0) pH Units Ur Specific [place] 1.026 H (1.010-1.025) Urine Protein >=300 H (Neg-Trace) mg/dL Urine Glucose (UA) 500 H (Normal) mg/dL Urine Ketones Negative (Negative) mg/dL Urine Blood Negative (Negative) Urine Nitrite Negative (Negative) Urine Bilirubin Negative (Negative) Urine Urobilinogen Normal (Normal) mg/dL Ur Leukocyte Esterase Negative (Negative) Urine Microscopic RBC 0-3 (0-3) per hpf Urine Microscopic WBC 0-3 (0-3) per hpf Ur Squamous Epith Cells Many H (None-Few) per lpf Urine Bacteria None Seen (None-Few) per hpf Hyaline Casts None Seen (None-Few) per lpf Ur Culture Indicated? NO (NO) Urine Opiates Screen Negative (Xcfedv=862) ng/mL Ur Barbiturates Screen Negative (Qeryip=200) ng/mL Ur Phencyclidine Scrn Negative (Cutoff=25) ng/mL Ur Amphetamines Screen Negative (Insydz=6310) ng/mL U Benzodiazepines Scrn Negative (Vcjfxf=815) ng/mL Urine Cocaine Screen Negative (Cutoff= 300) ng/mL U Marijuana (THC) Screen Negative (Cutoff = 50) ng/mL Ur Drug Screen Interp See Below - Radiology Data Radiology results reviewed: Yes I reviewed the patient's radiology results. Chest X-Ray 05/17/18 10:00 IMPRESSION: Endotracheal tube tip is approximately 3.5 cm above the margi. Right internal jugular central venous catheter tip projects over the mid SVC. No pneumothorax. Mild interstitial edema. D/ / 05/17/2018 12:08:38 Salome Armenta MD / earnold Interpreting Provider: Salome Armenta MD Head CT 05/17/18 10:47 IMPRESSION: 1. No acute intracranial abnormality. 2. Diffuse cerebral atrophy with chronic small vessel ischemic disease. 3. 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 D/ / Pipe Orlando MD / Pipe Orlando MD Interpreting Provider: Pipe Orlando MD Abdomen/Pelvis CT 05/17/18 12:55 IMPRESSION: Mild to moderate circumferential wall thickening distal 20 cm of the colon including the rectum suggesting infectious or inflammatory colitis. Moderate interstitial lung markings in both lung bases which may be acute or chronic. Interstitial pulmonary edema is favored. Mild bronchiectasis also noted in both lung bases. Moderate-sized bilateral fat containing inguinal hernias. D/ / Yvon Gauthier MD / Yvon Gauthier MD Interpreting Provider: Yvon Gauthier MD - EKG Data EKG attestation: Yes I reviewed and interpreted this EKG. EKG results narrative: EKG demonstrates atrial fibrillation with rate of 76 bpm. Normal axis. Normal intervals. Normal R-wave progression. No gross ST elevations or depressions. No acute ischemic findings. No significant changes from prior EKG dated . TPA Checklist - LKW: 3-4.5 hrs Add. Warnings/Precautions Patient/family understanding: The patient/family members have been counseled and understood the risk, benefit , and alternatives of treatment. S.B.ANayanR. - S.B.A.R. Situation: Demographics, MOA Background: Presenting Complaint, Relevant PMH, Meds, & Allergies Assessment: Course and respsone to treatment, Exam Concerns, Patient/Family Expectation, Pertinant Lab Results Recommendation: Barrier(s) to disposition, Recommendation based on pending studies, treatments, or consults S.B.ANayanR. Report Given to: Dr. England
[2018-05-17 11:13] LABS: VBG HCO3 26 mEq/L (21-27); VBG PCO2 50 mmHg (41-51); VBG PH 7.32 pH Units (7.32-7.42); VBG PO2 59 mmHg (25-50)
[2018-05-17 11:38] LABS: Basophils # 0.1 K/mcL (0.0-0.2); Basophils % 0.7 %; Eosinophils # 0.1 K/mcL (0.0-0.6); Eosinophils % 1.5 %; Hematocrit 48.6 % (37.5-50.1); Immature Granulocytes % 0.9 % (0-4); Lymphocytes % 32.4 %; Mean Corpuscular Hemoglobin 32.4 pg (28.0-33.3); Mean Corpuscular Volume 92.6 fL (83.0-100.0); Mean Platelet Volume 10.3 fL (9.4-12.4); Monocytes # 0.6 K/mcL (0.0-1.3); Neutrophils # 5.3 K/mcL (1.6-8.9); Platelet Count 189 K/mcL (140-400); Red Blood Count 5.25 M/mcL (4.19-5.50); Red Cell Distribution Width 12.6 % (11.5-14.5); Segmented Neutrophils % 57.5 %
[2018-05-17 11:45] LABS: Troponin I < 0.03 ng/mL (< 0.04)
[2018-05-17 11:46] LABS: INR 1.1; Prothrombin Time 12.1 Seconds (9.4-12.1)
[2018-05-17 11:49] LABS: Activated Partial Thrombo Time 29.8 Seconds (26.0-36.0)
--- NOTE | 2018-05-17 11:59 | Emergency Department Note ---
Disposition Clinical Impression: Altered mental status Qualifiers: Altered mental status type: unspecified Qualified Code(s): R41.82 - Altered mental status, unspecified Disposition: Admitted As Inpatient Condition: Fair [facility] [[facility]nered Phys[facility]] - Forms: ED Satisfaction Letter General Adult HPI - General Chief complaint: ED Altered Mental Status Stated complaint: unresponsive Time Seen by Provider: 05/17/18 09:59 Source: patient, EMS Mode of arrival: EMS Limitations: altered mental status - History of Present Illness Pain Scale: 0 - Related Data Home Medications Medication Instructions Recorded Confirmed Aspirin Enteric Coated [Aspirin EC] 81 mg PO BID 06/05/17 04/19/18 Atorvastatin [Lipitor] 10 mg PO HS 06/05/17 04/19/18 Lisinopril [Zestril] 2.5 mg PO DAILY 06/05/17 04/19/18 Metoprolol [Lopressor] 25 mg PO BID 06/05/17 04/19/18 Terazosin [Hytrin] 1 mg PO DAILY 06/05/17 04/19/18 Apixaban [Eliquis] 5 mg PO BID 10/14/17 04/19/18 Cyanocobalamin (Vitamin B-12) 1,000 mcg PO DAILY 10/14/17 04/19/18 [Vitamin B12] Insulin Glargine,Hum.rec.anlog 20 unit SQ HS 10/14/17 04/19/18 [Lantus Solostar] Insulin Regular, Human [Novolin R] 10 unit SQ TIDWM 10/14/17 04/19/18 Naproxen [Naprosyn] 500 mg PO BID 10/14/17 04/19/18 Albuterol Sulfate [Albuterol 2 puff IH Q6H PRN 12/29/17 04/19/18 Inhaler] Allergies Allergy/AdvReac Type Severity Reaction Status Date / Time IV Contrast Allergy Anaphylaxis Uncoded 10/14/17 15:15 Past Medical History - Past Medical History Medical history: Reports: atrial fibrillation, diabetes, hyperlipidemia, hypertension, renal disease Psychiatric history: Reports: no psych history - Social History Smoking Status: Former smoker Smokeless Tobacco Status: No Alcohol use: Reports: occasionally Drug use: Reports: none Physical Exam - General Limitations: altered mental status General appearance: obtunded Course Vital Signs Temperature 0 F L 05/17/18 10:05 Pulse Rate 69 05/17/18 10:05 Respiratory Rate 12 05/17/18 10:05 Blood Pressure 89/57 05/17/18 10:05 O2 Sat by Pulse Oximetry 92 05/17/18 10:05 Temperature 0 F L 05/17/18 10:05 Pulse Rate 69 05/17/18 10:05 Respiratory Rate 12 05/17/18 10:20 Blood Pressure 135/89 05/17/18 10:20 O2 Sat by Pulse Oximetry 96 05/17/18 10:20 Oxygen Delivery Oxygen Delivery Room Air Medical Decision Making - Lab Data Result diagrams: 05/17/18 10:51 Lab Results 05/17/18 05/17/18 05/17/18 Range/Units 09:58 10:48 10:51 WBC 9.2 (4.3-11.1) K/mcL RBC 5.25 (4.19-5.50) M/mcL Hgb 17.0 H (12.9-16.9) g/dL Hct 48.6 (37.5-50.1) % MCV 92.6 (83.0-100.0) fL MCH 32.4 (28.0-33.3) pg MCHC 35.0 (31.6-35.5) g/dL RDW 12.6 (11.5-14.5) % Plt Count 189 (140-400) K/mcL MPV 10.3 (9.4-12.4) fL Immature Gran % 0.9 (0-4) % Seg Neutrophils % 57.5 % Lymphocytes % 32.4 % Monocytes % 7.0 % Eosinophils % 1.5 % Basophils % 0.7 % Neutrophils # 5.3 (1.6-8.9) K/mcL Lymphocytes # 3.0 (0.6-4.6) K/mcL Monocytes # 0.6 (0.0-1.3) K/mcL Eosinophils # 0.1 (0.0-0.6) K/mcL Basophils # 0.1 (0.0-0.2) K/mcL PT (9.4-12.1) Seconds INR APTT (26.0-36.0) Seconds Sample Site L Brach ABG pH 7.41 (7.32-7.45) pH Units ABG pCO2 37 (35-45) mmHg ABG pO2 84 L (85-104) mmHg ABG HCO3 23 (21-27) mEq/L ABG Total CO2 24 (20-26) mEq/L ABG O2 Saturation 96 (95-98) % ABG Base Excess -1 (-2 to 3) mEq/L Andrew Test N/A VBG pH (7.32-7.42) pH Units VBG pCO2 (41-51) mmHg VBG pO2 (25-50) mmHg VBG HCO3 (21-27) mEq/L Respiration Rate 12 O2 Delivery Device Adult Vent Blood Gas Modality VC Inspired O2 30.0 (1-15=lpm [id number]=%) Tidal Volume 550 cc PEEP 5 cm H2O POC Glucose 276 H (70-99) mg/dL Lactic Acid (0.5-2.2) mmol/L Troponin I (< 0.04) ng/mL B-Natriuretic Peptide (Less than 100) pg/mL Beta-Hydroxybutyric Acd (0.02-0.27) mmol/L 05/17/18 05/17/18 05/17/18 Range/Units 10:51 10:51 10:51 WBC (4.3-11.1) K/mcL RBC (4.19-5.50) M/mcL Hgb (12.9-16.9) g/dL Hct (37.5-50.1) % MCV (83.0-100.0) fL MCH (28.0-33.3) pg MCHC (31.6-35.5) g/dL RDW (11.5-14.5) % Plt Count (140-400) K/mcL MPV (9.4-12.4) fL Immature Gran % (0-4) % Seg Neutrophils % % Lymphocytes % % Monocytes % % Eosinophils % % Basophils % % Neutrophils # (1.6-8.9) K/mcL Lymphocytes # (0.6-4.6) K/mcL Monocytes # (0.0-1.3) K/mcL Eosinophils # (0.0-0.6) K/mcL Basophils # (0.0-0.2) K/mcL PT 12.1 (9.4-12.1) Seconds INR 1.1 APTT 29.8 (26.0-36.0) Seconds Sample Site ABG pH (7.32-7.45) pH Units ABG pCO2 (35-45) mmHg ABG pO2 (85-104) mmHg ABG HCO3 (21-27) mEq/L ABG Total CO2 (20-26) mEq/L ABG O2 Saturation (95-98) % ABG Base Excess (-2 to 3) mEq/L Andrew Test VBG pH (7.32-7.42) pH Units VBG pCO2 (41-51) mmHg VBG pO2 (25-50) mmHg VBG HCO3 (21-27) mEq/L Respiration Rate O2 Delivery Device Blood Gas Modality Inspired O2 (1-15=lpm [id number]=%) Tidal Volume cc PEEP cm H2O POC Glucose (70-99) mg/dL Lactic Acid (0.5-2.2) mmol/L Troponin I < 0.03 (< 0.04) ng/mL B-Natriuretic Peptide (Less than 100) pg/mL Beta-Hydroxybutyric Acd 0.12 (0.02-0.27) mmol/L 05/17/18 05/17/18 05/17/18 Range/Units 10:51 10:51 11:11 WBC (4.3-11.1) K/mcL RBC (4.19-5.50) M/mcL Hgb (12.9-16.9) g/dL Hct (37.5-50.1) % MCV (83.0-100.0) fL MCH (28.0-33.3) pg MCHC (31.6-35.5) g/dL RDW (11.5-14.5) % Plt Count (140-400) K/mcL MPV (9.4-12.4) fL Immature Gran % (0-4) % Seg Neutrophils % % Lymphocytes % % Monocytes % % Eosinophils % % Basophils % % Neutrophils # (1.6-8.9) K/mcL Lymphocytes # (0.6-4.6) K/mcL Monocytes # (0.0-1.3) K/mcL Eosinophils # (0.0-0.6) K/mcL Basophils # (0.0-0.2) K/mcL PT (9.4-12.1) Seconds INR APTT (26.0-36.0) Seconds Sample Site ABG pH (7.32-7.45) pH Units ABG pCO2 (35-45) mmHg ABG pO2 (85-104) mmHg ABG HCO3 (21-27) mEq/L ABG Total CO2 (20-26) mEq/L ABG O2 Saturation (95-98) % ABG Base Excess (-2 to 3) mEq/L Andrew Test VBG pH 7.32 (7.32-7.42) pH Units VBG pCO2 50 (41-51) mmHg VBG pO2 59 H (25-50) mmHg VBG HCO3 26 (21-27) mEq/L Respiration Rate O2 Delivery Device Blood Gas Modality Inspired O2 (1-15=lpm [id number]=%) Tidal Volume cc PEEP cm H2O POC Glucose (70-99) mg/dL Lactic Acid 2.5 H (0.5-2.2) mmol/L Troponin I (< 0.04) ng/mL B-Natriuretic Peptide 223 H (Less than 100) pg/mL Beta-Hydroxybutyric Acd (0.02-0.27) mmol/L Attestation Statement - Attestation Attestation: I examined this patient and my medical decision-making was reviewed with the Resident Physician. I agree with the documented findings, disposition and treatment plan as described except to the extent set forth below. 77 year old male presents to the ED with complaints of alterd mental status via EMS and unresponsiveness. He has a history of DKA and encephalopathy. and was [facility] [place] upon arrival was disoriented and had shallow breathing and thus prompted an advanced airway to be placed. Due to concerns for DKA and current hypotension we have placed a central line. Sepsis workup and AMS/DKA workup and then admission to ICU
[2018-05-17 12:04] LABS: Bilirubin,Urine Negative (Negative); Blood,Urine Negative (Negative); Clarity,Urine Clear (Clear); Color,Urine Yellow (Yellow); Glucose,Urine (UA) 500 mg/dL (Normal); Ketones,Urine Negative (Negative); Leukocyte Esterase,Urine Negative (Negative); Nitrite,Urine Negative (Negative); Protein,Urine >=300 mg/dL (Neg-Trace); Specific Gravity,Urine 1.026 (1.010-1.025); Urobilinogen,Urine Normal (Normal)
[2018-05-17 12:10] LABS: Bacteria,Urine None Seen per hpf (None-Few); Hyaline Casts,Urine None Seen per lpf (None-Few); RBC,Urine 0-3 per hpf (0-3); Squamous Epithelial Cell,Urine Many per lpf (None-Few); WBC,Urine 0-3 per hpf (0-3)
[2018-05-17 12:13] LABS: Amphetamine Screen,Urine Negative ng/mL (Cutoff=1000); Barbiturate Screen,Urine Negative ng/mL (Cutoff=200); Benzodiazepines Screen,Urine Negative ng/mL (Cutoff=200); Cannabinoid Screen,Urine Negative ng/mL (Cutoff = 50); Cocaine Screen,Urine Negative ng/mL (Cutoff= 300); Opiate Screen,Urine Negative ng/mL (Cutoff=300); Phencyclidine Screen,Urine Negative ng/mL (Cutoff=25)
[2018-05-17 12:20] LABS: Alanine Aminotransferase 41 Units/L (7-52); Albumin 3.7 g/dL (3.5-5.7); Albumin/Globulin Ratio 1.1 (1.1-2.2); Alkaline Phosphatase 98 Units/L (34-104); Aspartate Amino Transferase 50 Units/L (13-39); BUN/Creatinine Ratio 14 (6-26); Bilirubin,Direct 0.2 mg/dL (0.0-0.2); Bilirubin,Indirect 0.8 mg/dL (0.0-1.2); Blood Urea Nitrogen 23 mg/dL (8-23); Calcium 9.2 mg/dL (8.6-10.3); Carbon Dioxide 23 mEq/L (23-29); Chloride 99 mEq/L (98-107); Globulin 3.5 g/dL (2.4-3.5); Glucose 288 mg/dL (70-105); Lipase 31 Units/L (11-82); Magnesium 1.8 mg/dL (1.6-2.6); Osmolality,Calculated 290 (280-300); Phosphorous 3.1 mg/dL (2.7-4.5); Potassium 4.8 mEq/L (3.5-5.1); Sodium 133 mEq/L (136-145); Total Protein 7.2 g/dL (6.4-8.9); eGFR For Non-African Americans 42 (> 60)
[2018-05-17] MEDS ORDERED: *HR* Rocuronium Bromide 100 MG/10 ML VIAL IVC ONE (12:31)
[2018-05-17] MEDS ORDERED: *HR* Water for inj. (sterile) Vial IV ONE (12:31)
[2018-05-17] MEDS ORDERED: *HR* Midazolam HCl 2 MG/2 ML VIAL IVP ONE (12:56)
[2018-05-17] MEDS: Norepinephrine 4 MG in D5% in Water 250 ML IVC SCH (12:57)
[2018-05-17] MEDS ORDERED: Piperacillin/Tazobactam 3.375 GM in 0.9 % Sodium Chloride Mini Bag 100 ML IVPB ONE (14:00)
[2018-05-17] MEDS ORDERED: Vancomycin Oral Soln 125 MG/2.5 ML UDC PO ONE (14:01)
[2018-05-17] MEDS ORDERED: Lacri-Lube 3.5 GM TUBE BOTH EYES PRN (14:54)
[2018-05-17] MEDS ORDERED: *HR* Dextrose 50 % in Water (Syg) 50 ML SYRINGE IVP PRN (14:58)
[2018-05-17] MEDS ORDERED: D5% in Water 1,000 ML IVC PRN (14:58)
[2018-05-17] MEDS ORDERED: Dextrose Gel 15 GM/37.5 ML TUBE PO PRN ×2 (14:58)
[2018-05-17] MEDS ORDERED: Potassium Chloride 40 MEQ/200 ML BAG IVPB PRN (14:59)
[2018-05-17] MEDS ORDERED: Potassium Phosphate 44 MEQ in 0.9 % Sodium Chloride 250 ML IVPB PRN (14:59)
--- NOTE | 2018-05-17 15:12 | Pulmonology History & Physical ---
<Vinny Robbins W - Last Filed: 05/17/18 16:21> Date of Encounter: 05/17/18 History of Present Illness HPI: Mr. Subramanian is a 77 year old male Medications and Allergies Atorvastatin [Lipitor] 10 mg PO HS 06/05/17 [History] Lisinopril [Zestril] 2.5 mg PO DAILY 06/05/17 [History] Metoprolol [Lopressor] 25 mg PO BID 06/05/17 [History] Terazosin [Hytrin] 1 mg PO DAILY 06/05/17 [History] Apixaban [Eliquis] 5 mg PO BID 10/14/17 [History] Cyanocobalamin (Vitamin B-12) [Vitamin B12] 1,000 mcg PO DAILY 10/14/17 [History ] Insulin Glargine,Hum.rec.anlog [Lantus Solostar] 24 unit SQ HS 10/14/17 [History ] Cholecalciferol (Vitamin D3) [Vitamin D3] 1,000 mg PO DAILY 05/17/18 [History] Metformin HCl [Metformin HCl ER] 500 mg PO BID 05/17/18 [History] Naproxen Sodium [Naproxen Sodium] 550 mg PO BID 05/17/18 [History] Paroxetine HCl [Paxil] 20 mg PO DAILY 05/17/18 [History] 3 Allergy/AdvReac Type Severity Reaction Status Date / Time IV Contrast Allergy Anaphylaxis Uncoded 10/14/17 15:15 All Systems: The remainder of the systems were reviewed and are negative Physical Examination Vital Signs: Vital Signs, Last 4 Hours Pulse Resp BP Pulse Ox 05/17/18 15:33 12 96 05/17/18 14:29 53 14 119/73 96 Results - Laboratory Findings CBC and BMP: 05/17/18 10:51 05/17/18 10:51 ABG ABG pH 7.35 pH Units (7.32-7.45) 05/17/18 16:16 ABG pCO2 42 mmHg (35-45) 05/17/18 16:16 ABG pO2 78 mmHg (85-104) L 05/17/18 16:16 ABG O2 Saturation 95 % (95-98) 05/17/18 16:16 PT/INR, D-dimer PT 12.1 Seconds (9.4-12.1) 05/17/18 10:51 Abnormal lab findings: Abnormal lab results Hgb 17.0 g/dL (12.9-16.9) H 05/17/18 10:51 ABG pO2 78 mmHg (85-104) L 05/17/18 16:16 ABG Base Excess -3 mEq/L (-2 to 3) L 05/17/18 16:16 VBG pO2 59 mmHg (25-50) H 05/17/18 11:11 Sodium 133 mEq/L (136-145) L 05/17/18 10:51 Creatinine 1.59 mg/dL (0.70-1.30) H 05/17/18 10:51 Est GFR ( Amer) 51 (> 60) L 05/17/18 10:51 Est GFR (Non-Af Amer) 42 (> 60) L 05/17/18 10:51 Glucose 288 mg/dL (70-105) H 05/17/18 10:51 POC Glucose 264 mg/dL (70-99) H 05/17/18 15:42 Lactic Acid 2.5 mmol/L (0.5-2.2) H 05/17/18 10:51 AST 50 Units/L (13-39) H 05/17/18 10:51 B-Natriuretic Peptide 223 pg/mL (Less than 100) H 05/17/18 10:51 Ur Specific [place] 1.026 (1.010-1.025) H 05/17/18 11:30 Urine Protein >=300 mg/dL (Neg-Trace) H 05/17/18 11:30 Urine Glucose (UA) 500 mg/dL (Normal) H 05/17/18 11:30 Ur Squamous Epith Cells Many per lpf (None-Few) H 05/17/18 11:30 - Attending Attestation I examined this patient and my medical decision-making was reviewed with the Resident Physician. I agree with the documented findings, disposition and treatment plan as described except to the extent set forth below. We independently had [id number] contact with the patient I spent 35min of Critical Care time with this patient. It involved decision making of high complexity to assess, manipulate, and support vital organ system failure and/or to prevent further life threatening deterioration of the patient' s condition. The time involved in the performance of separately reportable procedures was not counted toward critical care time. Patient seen and examined at bedside Labs, radiology, chart personally reviewed. Management was reviewed during multidisciplinary critical care rounds. [employer]: Encephalopathy likely secondary to sepsis sedation turned off in the ICU to perform neurological examination patient able to follow simple commands and moves all extremities no focal weakness head CT without acute process has some underlying encephalomalacia which puts him at increased risk for acute encephalopathy may need MRI based upon clinical course Pulm: Acute respiratory failure patient unable to protect the airway secondary to his encephalopathy intubated in the ED ABG is reassuring for double gas exchange lower CT cuts and chest x-ray without acute process such as pneumonia likely some underlying atelectasis bilaterally. Spontaneous breathing trial planned in the morning Cards: Patient remains hypotensive on vasopressor but no overt evidence of shock physiology possibly related to sepsis and complicated by sedation for ventilator he has received volume resuscitation in the ED will lower vasopressor and attempt to wean off Levophed GI: GI prophylaxis given Nutrition: Nothing by mouth for now Renal: UOP Monitored, Cont to Trend sCr and monitor Electrolytes. ID: CT of the abdomen to just of colitis we will send GI panel for infectious etiologies empirically treat for C. difficile until ruled out also on broad- spectrum antibiotics for intra-abdominal colitis with Zosyn Heme/Onc: DVT prophylaxis given Endo: Glucose Monitored Integ/MSK: Skin Care per routine ICU Nursing Protocol to prevent ulcers. Lines: All lines examined without evidence of infection : Dispo: See her for critical illness CODE: Full <Navi Rivero N - Last Filed: 05/17/18 18:52> Date of Encounter: 05/17/18 Time of Encounter: 15:05 Assessment and Plan (1) Altered mental status Current visit: Yes Status: Acute Patient is a 77-year-old male who presented to the ED via EMS for altered mental status. Per ED reports patient was found at home unresponsive and in the ED was hypotensive with a GCS of 7. he was electively intubated and essentially line was started for vasopressors. History was also collected from patient's brother via telephone, he states that the patient has had delirious episodes past few months with the patient becomes acutely disoriented appears a time however he returns back to baseline. He states that earlier today patient was found unresponsive in a chair and that prompted him to call EMS. Per report patient had a large bowel movement in the ambulance en route to the ER. A CT scan in the ED revealed evidence of colitis, however WBC count was within normal range. Per document review patient has had encephalopathy and episodes of AMS in the past. His current state is possibly due to a number of different possibilities including sepsis secondary to colitis, and underlying dementia superimposed delirium, or a new CVA as patient has A. fib and a prior history of CVAs. -empirically treat for sepsis and infectious colitis -collect ESR and CRP -decrease sedation and assess neurological status -possibly wean off vasopressors soon and obtain MRI Qualifiers: Altered mental status type: unspecified Qualified Code(s): R41.82 - Altered mental status, unspecified (2) Atrial fibrillation Current visit: No Status: Chronic Chronic No RVR heart rate is normal Continue patient's home Eliquis. Qualifiers: Qualified Code(s): I48.91 - Unspecified atrial fibrillation (3) Chronic kidney disease (CKD) Current visit: No Status: Acute Elevated creatinine on Admission this is near patient's baseline as he has chronic kidney disease and evidence of cysts on CT scan We will continue to monitor for YELENA superimposed on CKD Qualifiers: Chronic kidney disease stage: stage 3 (moderate) Qualified Code(s): N18.3 - Chronic kidney disease, stage 3 (moderate) (4) History of CVA (cerebrovascular accident) Current visit: No Status: Acute Patient has prior imaging studies that show evidence of CVA dating back to May of last year. -Family did not know if patient has any residual neurological deficits. -Patient has been increasingly confused over the past year. Family does state that they were told that he may have some degree of underlying dementia. -Patient has a history of A. fib and manages own home medications, there is small possibility that patient may have another CVA. -We will try to wean the patient off pressors and obtain MRI. (5) DVT prophylaxis Current visit: No Status: Acute Continue home dose Eliquis History of Present Illness Chief complaint: Altered mental status HPI: Mr. Subramanian is a 77 year old male with a past medical history of hypertension, diabetes, CVA, and A. fib who lives with his brother. history was collected from ER documentation and from the brother via phone call as the patient was sedated and intubated. Per ER documentation patient was found at home unresponsive and EMS was called. En route patient had a large bowel movement. Upon arrival to the ED patient was hypotensive with a GCS of 7. Patient was electively intubated and a central line was placed and he was started on pressors. The brother states that the patient has a long history of intermittent confusion and has been notified that his brother may be developing dementia, citing instances when his brother would drive and get lost and forget his way around familiar locations. He states that last night the patient was disoriented to place, however this improved somewhat this morning. Later in the morning the brother found the patient in a chair and he says that he was unarousable so EMS was called. Brother states that the patient does have a history of A. fib and is on Eliquis and he has had strokes in the past but does not know of specific residual neurological deficits the patient experiences. He denies knowing if the patient had any recent fevers, chills, or any illnesses. He does not know if the patient has recently been compliant with his medications at home but states that the patient manages his home medications adequately on a daily basis. Lab studies from the ED show a normal CBC with a white blood cell count within range. His ABG was also within range and BMP was only significant for baseline chronic kidney disease and a mild elevation in lactic acid level. Chest x-ray was normal, however abdominal CT did reveal mild to moderate circumferential wall thickening in the distal 20 cm the colon suggesting infectious or inflammatory colitis. Of note patient was recently admitted for acute encephalopathy on 04/20 and discharged on 04/22. His confusion and altered mental status at that time may have been attributed to hyperthermia and undiagnosed dementia. Past Med Surg Social Fam HX - Past Medical History Medical history: atrial fibrillation, diabetes, hyperlipidemia, hypertension, renal disease Psychiatric history: no psych history - Social History Smoking Status: Former smoker Smokeless Tobacco Status: No Alcohol use: occasionally Drug use: none - Family History Father Family Member Ethnicity: Non- Living Status: Hx Family Cardiac Disorders: Yes (CO) Hx Family Cancer: Yes (Bladder) Mother Family Member Ethnicity: Non- Living Status: Hx Family Cancer: Yes (Colon) Brother Family Member Ethnicity: Non- Living Status: Still Living Hx Family Cancer: Yes (Unknown what type) Sister Family Member Ethnicity: Non- Living Status: Still Living Hx Family Cardiac Disorders: Yes (HD) ROS unobtainable: due to endotracheal tube, due to mental status All Systems: The remainder of the systems were reviewed and are negative Physical Examination Vital Signs: Vital Signs, Last 4 Hours Pulse Resp BP Pulse Ox 05/17/18 14:29 53 14 119/73 96 General appearance: other (Intubated, sedated) Auscultation: bilateral: rhonchi (Mild rhonchi bilaterally) Cardiovascular: regular rate and rhythm Gastrointestinal: normoactive bowel sounds, soft, non-tender, other (Patient does not respond to palpation of the abdomen even the left lower quadrant.) Integumentary: other (Excoriation of forearms bilaterally) Extremities: no cyanosis, no edema, no clubbing Results - Laboratory Findings CBC and BMP: 05/17/18 10:51 05/17/18 10:51 ABG ABG pH 7.41 pH Units (7.32-7.45) 05/17/18 10:48 ABG pCO2 37 mmHg (35-45) 05/17/18 10:48 ABG pO2 84 mmHg (85-104) L 05/17/18 10:48 ABG O2 Saturation 96 % (95-98) 05/17/18 10:48 PT/INR, D-dimer PT 12.1 Seconds (9.4-12.1) 05/17/18 10:51 Abnormal lab findings: Abnormal lab results Hgb 17.0 g/dL (12.9-16.9) H 05/17/18 10:51 ABG pO2 84 mmHg (85-104) L 05/17/18 10:48 VBG pO2 59 mmHg (25-50) H 05/17/18 11:11 Sodium 133 mEq/L (136-145) L 05/17/18 10:51 Creatinine 1.59 mg/dL (0.70-1.30) H 05/17/18 10:51 Est GFR ( Amer) 51 (> 60) L 05/17/18 10:51 Est GFR (Non-Af Amer) 42 (> 60) L 05/17/18 10:51 Glucose 288 mg/dL (70-105) H 05/17/18 10:51 POC Glucose 276 mg/dL (70-99) H 05/17/18 09:58 Lactic Acid 2.5 mmol/L (0.5-2.2) H 05/17/18 10:51 AST 50 Units/L (13-39) H 05/17/18 10:51 B-Natriuretic Peptide 223 pg/mL (Less than 100) H 05/17/18 10:51 Ur Specific [place] 1.026 (1.010-1.025) H 05/17/18 11:30 Urine Protein >=300 mg/dL (Neg-Trace) H 05/17/18 11:30 Urine Glucose (UA) 500 mg/dL (Normal) H 05/17/18 11:30 Ur Squamous Epith Cells Many per lpf (None-Few) H 05/17/18 11:30
[2018-05-17] MEDS ORDERED: Ringers Solution, Lactated 1,000 ML ONE (15:51)
[2018-05-17] MEDS: Dexmedetomidine HCl 400 MCG/100 ML MLS IVC SCH (16:11)
[2018-05-17] MEDS: FentaNYL (PF) 1,000 MCG in 0.9 % Sodium Chloride 80 ML IVC SCH (16:11)
[2018-05-17] MEDS: Pantoprazole 40 MG VIAL IVP SCH (16:12)
[2018-05-17] MEDS: Lacri-Lube 3.5 GM TUBE BOTH EYES SCH ×3 (16:14→23:24)
[2018-05-17 16:19] LABS: ABG Base Excess -3 mEq/L (-2 to 3); ABG HCO3 23 mEq/L (21-27); ABG Oxygen Saturation 95 % (95-98); ABG PCO2 42 mmHg (35-45); ABG PH 7.35 pH Units (7.32-7.45); ABG PO2 78 mmHg (85-104); ABG TCO2 24 mEq/L (20-26); Blood Gas Modality ASSIST CONTROL; Blood Gas PEEP 5 cm H2O; Blood Gas Respiration Rate 12; Blood Gas VT 480 cc
[2018-05-17] MEDS: Vancomycin Oral Soln 125 MG/2.5 ML UDC PO SCH ×2 (16:23→21:55)
[2018-05-17 16:38] LABS: Acetaminophen < 10 mcg/mL (10-20); Salicylate < 2.5 mg/dL (15.0-30.0)
[2018-05-17] MEDS ORDERED: *HR* Heparin 5,000 UNIT/ML VIAL SQ SCH (18:00)
[2018-05-17] MEDS: Insulin LISPRO 300 UNITS/3 ML VIAL SQ SCH ×2 (19:03→23:24)
[2018-05-17] MEDS: Apixaban 5 MG TABLET PO SCH (21:06)
[2018-05-17] MEDS: Chlorhexidine Rinse 15 ML MOUTHWASH MM SCH (21:06)
[2018-05-17] MEDS ORDERED: 0.9 % Sodium Chloride 500 ML IVC PRN (21:26)
[2018-05-17] MEDS ORDERED: *HR* Atropine Sulfate 1 MG/10 ML SYRINGE ONE (21:37)
[2018-05-17] MEDS ORDERED: Ringers Solution, Lactated 1,000 ML IVC ONE (23:19)
[2018-05-18 00:06] LABS: BUN/Creatinine Ratio 14 (6-26); Blood Urea Nitrogen 25 mg/dL (8-23); Calcium 8.5 mg/dL (8.6-10.3); Carbon Dioxide 26 mEq/L (23-29); Chloride 102 mEq/L (98-107); Glucose 243 mg/dL (70-105); Osmolality,Calculated 294 (280-300); Sodium 136 mEq/L (136-145); eGFR For Non-African Americans 38 (> 60)
[2018-05-18 00:07] LABS: Troponin I < 0.03 ng/mL (< 0.04)
[2018-05-18] MEDS: Lacri-Lube 3.5 GM TUBE BOTH EYES SCH ×6 (04:13→23:41)
[2018-05-18 04:35] LABS: VBG Ionized Calcium 1.16 mmol/L (1.15-1.35)
[2018-05-18 04:42] LABS: Basophils # 0.1 K/mcL (0.0-0.2); Basophils % 0.7 %; Eosinophils # 0.3 K/mcL (0.0-0.6); Eosinophils % 2.9 %; Hematocrit 45.2 % (37.5-50.1); Hemoglobin 15.7 g/dL (12.9-16.9); Lymphocytes % 19.3 %; Mean Corpuscular HGB Conc 34.7 g/dL (31.6-35.5); Mean Corpuscular Hemoglobin 31.7 pg (28.0-33.3); Mean Corpuscular Volume 91.3 fL (83.0-100.0); Mean Platelet Volume 10.3 fL (9.4-12.4); Monocytes # 0.8 K/mcL (0.0-1.3); Monocytes % 8.1 %; Neutrophils # 6.9 K/mcL (1.6-8.9); Platelet Count 189 K/mcL (140-400); Red Blood Count 4.95 M/mcL (4.19-5.50); Red Cell Distribution Width 12.7 % (11.5-14.5)
[2018-05-18 04:45] LABS: Calcium 8.6 mg/dL (8.6-10.3); Magnesium 1.6 mg/dL (1.6-2.6); Potassium 3.6 mEq/L (3.5-5.1)
[2018-05-18] MEDS: FentaNYL (PF) 1,000 MCG in 0.9 % Sodium Chloride 80 ML IVC SCH (04:45)
[2018-05-18] MEDS: Insulin LISPRO 300 UNITS/3 ML VIAL SQ SCH ×4 (05:32→23:41)
[2018-05-18 05:36] LABS: ABG Base Excess 1 mEq/L (-2 to 3); ABG HCO3 26 mEq/L (21-27); ABG Oxygen Saturation 94 % (95-98); ABG PCO2 44 mmHg (35-45); ABG PH 7.38 pH Units (7.32-7.45); ABG PO2 71 mmHg (85-104); ABG TCO2 28 mEq/L (20-26); Blood Gas Modality ASSIST CONTROL; Blood Gas PEEP 5 cm H2O; Blood Gas Respiration Rate 12; Blood Gas VT 480 cc
--- NOTE | 2018-05-18 07:41 | Pulmonology Progress Note ---
<DonnieameliaVinny rosenberg W - Last Filed: 05/18/18 10:07> Date of Encounter: 05/18/18 Objective PUL Vital signs: Last Vital Signs Temp 97.1 F L 05/18/18 07:41 Pulse 68 05/18/18 09:00 Resp 20 05/18/18 10:02 BP 125/60 05/18/18 10:02 Pulse Ox 98 05/18/18 10:02 Ventilator Settings Ventilator Settings: Ventilator Settings, Last 8 Hours Ventilator Tidal Volume 480 Setting Ventilator Tidal Volume 480 Setting Ventilator Tidal Volume 480 Setting Ventilator Tidal Volume 480 Setting Ventilator Tidal Volume 480 Setting Ventilator Tidal Volume 480 Setting Ventilator Tidal Volume 480 Setting Ventilator Tidal Volume 480 Setting Ventilator Tidal Volume 480 Setting Ventilator Tidal Volume 480 Setting Ventilator Respiratory Rate 12 Setting Ventilator Respiratory Rate 12 Setting Ventilator Respiratory Rate 12 Setting Ventilator Respiratory Rate 12 Setting Ventilator Respiratory Rate 12 Setting Ventilator Respiratory Rate 12 Setting Ventilator Respiratory Rate 12 Setting Ventilator Respiratory Rate 12 Setting Ventilator Respiratory Rate 12 Setting Ventilator Respiratory Rate 12 Setting Actual Respiratory Rate 20 Actual Respiratory Rate 12 Actual Respiratory Rate 12 Actual Respiratory Rate 12 Actual Respiratory Rate 12 Actual Respiratory Rate 12 Actual Respiratory Rate 12 Actual Respiratory Rate 12 Actual Respiratory Rate 12 Actual Respiratory Rate 22 Positive End Expiratory 5 Pressure Positive End Expiratory 5 Pressure Positive End Expiratory 5 Pressure Positive End Expiratory 5 Pressure Positive End Expiratory 5 Pressure Positive End Expiratory 5 Pressure Positive End Expiratory 5 Pressure Positive End Expiratory 5 Pressure Positive End Expiratory 5 Pressure Positive End Expiratory 5 Pressure Positive End Expiratory 5 Pressure Peak Inspiratory Airway 11 Pressure Peak Inspiratory Airway 20 Pressure Peak Inspiratory Airway 23 Pressure Peak Inspiratory Airway 23 Pressure Results - Laboratory Findings CBC and BMP: 05/18/18 04:10 05/18/18 04:10 ABG ABG pH 7.38 pH Units (7.32-7.45) 05/18/18 05:32 ABG pCO2 44 mmHg (35-45) 05/18/18 05:32 ABG pO2 71 mmHg (85-104) L 05/18/18 05:32 ABG O2 Saturation 94 % (95-98) L 05/18/18 05:32 PT/INR, D-dimer PT 12.1 Seconds (9.4-12.1) 05/17/18 10:51 Abnormal lab findings: Abnormal lab results ESR 19 mm/hr (0-10) H 05/17/18 18:05 ABG pO2 71 mmHg (85-104) L 05/18/18 05:32 ABG Total CO2 28 mEq/L (20-26) H 05/18/18 05:32 ABG O2 Saturation 94 % (95-98) L 05/18/18 05:32 VBG pO2 59 mmHg (25-50) H 05/17/18 11:11 Creatinine 1.60 mg/dL (0.70-1.30) H 05/18/18 04:10 Est GFR ( Amer) 51 (> 60) L 05/18/18 04:10 Est GFR (Non-Af Amer) 42 (> 60) L 05/18/18 04:10 Glucose 205 mg/dL (70-105) H 05/18/18 04:10 POC Glucose 181 mg/dL (70-99) H 05/18/18 05:31 AST 50 Units/L (13-39) H 05/17/18 10:51 B-Natriuretic Peptide 223 pg/mL (Less than 100) H 05/17/18 10:51 Ur Specific [place] 1.026 (1.010-1.025) H 05/17/18 11:30 Urine Protein >=300 mg/dL (Neg-Trace) H 05/17/18 11:30 Urine Glucose (UA) 500 mg/dL (Normal) H 05/17/18 11:30 Ur Squamous Epith Cells Many per lpf (None-Few) H 05/17/18 11:30 Salicylates < 2.5 mg/dL (15.0-30.0) L 05/17/18 15:53 Acetaminophen < 10 mcg/mL (10-20) L 05/17/18 15:53 - Microbiology Findings Microbiology Findings: Microbiology, Last 48 Hours 05/17/18 18:05 Sputum Culture - Preliminary Aspirate - Clinical Findings Intake & Output: Intake & Output 05/17/18 05/18/18 05/18/18 23:59 07:59 15:59 Intake Total 650 / 650 1139 / 1139 Output Total 650 / 650 1760 / 1760 Balance 0 / 0 -621 / -621 Weight 97.6 kg Consult Discharge Plan - Plan [facility]errals: [facility] [Primary Care Provider] - - Attending Attestation I examined this patient and my medical decision-making was reviewed with the Resident Physician. I agree with the documented findings, disposition and treatment plan as described except to the extent set forth below. We independently had [id number] contact with the patient Patient seen and examined at bedside Labs, radiology, chart personally reviewed. Management was reviewed during multidisciplinary critical care rounds. 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 Patient is awake and able to follow commands off sedation during spontaneous awake trial Pulm: Patient intubated for airway protection because of his encephalopathy spontaneous breathing trial today followed by liberation Cards: He has been bradycardic overnight which is likely secondary to sedation for the vent his been on dopamine for this which can be weaned off blood pressure stable. History of A. fib rate on LTA GI: Stress ulcer prophylaxis given Nutrition: Nothing by mouth for now Renal: UOP Monitored, Cont to Trend sCr and monitor Electrolytes. ID: He is being treated for colitis stool cultures pending continue contact precautions until C. difficile ruled out Heme/Onc: Restart at home Noac for afib H&H stable Endo: Glucose Monitored Integ/MSK: Skin Care per routine ICU Nursing Protocol to prevent ulcers. Lines: All lines examined without evidence of infection : Dispo: Remain in ICU for vent management CODE: Full <Navi Rivero N - Last Filed: 05/18/18 16:11> Date of Encounter: 05/18/18 Time of Encounter: 07:40 Assessment and Plan (1) Altered mental status Current Visit: Yes Status: Acute Patient is a 77-year-old male who presented to the ED via EMS for altered mental status. Per ED reports patient was found at home unresponsive and in the ED was hypotensive with a GCS of 7. he was electively intubated and essentially line was started for vasopressors. History was also collected from patient's brother via telephone, he states that the patient has had delirious episodes past few months with the patient becomes acutely disoriented appears a time however he returns back to baseline. He states that earlier yesterday patient was found unresponsive in a chair and that prompted him to call EMS. Per report patient had a large bowel movement in the ambulance en route to the ER. A CT scan in the ED revealed evidence of colitis, however WBC count, ESR, and CRP have been within normal range. Per document review patient has had encephalopathy and episodes of AMS in the past. His current state is possibly due to a number of different possibilities including sepsis secondary to colitis , underlying dementia superimposed delirium, or a new CVA as patient has A. fib and a prior history of CVAs. -empirically treat for sepsis and infectious colitis -Patient was extubated today, he varies between agitation and somnolence -No respiratory distress at this time, will continue to monitor -possible MRI in the future to assess for new CVA Qualifiers: Altered mental status type: unspecified Qualified Code(s): R41.82 - Altered mental status, unspecified (2) Atrial fibrillation Current Visit: No Status: Chronic Chronic No RVR heart rate is normal Continue patient's home Eliquis. Patient has been bradycardic, required dopamine overnight Qualifiers: Qualified Code(s): I48.2 - Chronic atrial fibrillation (3) Chronic kidney disease (CKD) Current Visit: No Status: Acute Elevated creatinine on Admission this is near patient's baseline as he has chronic kidney disease and evidence of cysts on CT scan We will continue to monitor for YELENA superimposed on CKD Qualifiers: Chronic kidney disease stage: stage 3 (moderate) Qualified Code(s): N18.3 - Chronic kidney disease, stage 3 (moderate) (4) History of CVA (cerebrovascular accident) Current Visit: No Status: Acute Patient has prior imaging studies that show evidence of CVA dating back to May of last year. -Family did not know if patient has any residual neurological deficits. -Patient has been increasingly confused over the past year. Family does state that they were told that he may have some degree of underlying dementia. -Patient has a history of A. fib and manages own home medications, there is small possibility that patient may have another CVA. -We will try to wean the patient off pressors and obtain MRI. (5) DVT prophylaxis Current Visit: No Status: Acute Continue home dose Eliquis Subjective Principal diagnosis: Altered mental status Interval history: patient seen and examined this morning at bedside with the attending present. Overnight the patient required dopamine as his heart rate fell into the 30s. this morning he his hemodynamically stable. His sedation was weaned off and the patient became more awake but agitated for a period of time. a trial of cpap was performed and the patient failed the first trial, but the second trial was successful. He was extubated. He is currently difficult to arouse and follows minimal commands, but no evidence of any respiratory distress. Objective PUL Vital signs: Last Vital Signs Temp 98.8 F 05/18/18 03:27 Pulse 59 05/18/18 06:00 Resp 12 05/18/18 06:00 BP 129/72 05/18/18 06:00 Pulse Ox 93 05/18/18 06:00 General appearance: agitated, other (follows minimal commands) Auscultation: bilateral: clear Cardiovascular: regular rate and rhythm Gastrointestinal: normoactive bowel sounds, soft Integumentary: normal Extremities: no cyanosis, no edema, no clubbing Ventilator Settings Ventilator Settings: Ventilator Settings, Last 8 Hours Ventilator Tidal Volume 480 Setting Ventilator Tidal Volume 480 Setting Ventilator Tidal Volume 480 Setting Ventilator Tidal Volume 480 Setting Ventilator Tidal Volume 480 Setting Ventilator Tidal Volume 480 Setting Ventilator Tidal Volume 480 Setting Ventilator Tidal Volume 480 Setting Ventilator Tidal Volume 480 Setting Ventilator Tidal Volume 480 Setting Ventilator Tidal Volume 480 Setting Ventilator Tidal Volume 480 Setting Ventilator Respiratory Rate 12 Setting Ventilator Respiratory Rate 12 Setting Ventilator Respiratory Rate 12 Setting Ventilator Respiratory Rate 12 Setting Ventilator Respiratory Rate 12 Setting Ventilator Respiratory Rate 12 Setting Ventilator Respiratory Rate 12 Setting Ventilator Respiratory Rate 12 Setting Ventilator Respiratory Rate 12 Setting Ventilator Respiratory Rate 12 Setting Ventilator Respiratory Rate 12 Setting Ventilator Respiratory Rate 12 Setting Actual Respiratory Rate 12 Actual Respiratory Rate 12 Actual Respiratory Rate 12 Actual Respiratory Rate 12 Actual Respiratory Rate 12 Actual Respiratory Rate 22 Actual Respiratory Rate 12 Actual Respiratory Rate 12 Actual Respiratory Rate 12 Actual Respiratory Rate 12 Actual Respiratory Rate 12 Positive End Expiratory 5 Pressure Positive End Expiratory 5 Pressure Positive End Expiratory 5 Pressure Positive End Expiratory 5 Pressure Positive End Expiratory 5 Pressure Positive End Expiratory 5 Pressure Positive End Expiratory 5 Pressure Positive End Expiratory 5 Pressure Positive End Expiratory 5 Pressure Positive End Expiratory 5 Pressure Positive End Expiratory 5 Pressure Positive End Expiratory 5 Pressure Peak Inspiratory Airway 23 Pressure Peak Inspiratory Airway 23 Pressure Peak Inspiratory Airway 22 Pressure Peak Inspiratory Airway 21 Pressure Results - Laboratory Findings CBC and BMP: 05/18/18 04:10 05/18/18 04:10 ABG ABG pH 7.38 pH Units (7.32-7.45) 05/18/18 05:32 ABG pCO2 44 mmHg (35-45) 05/18/18 05:32 ABG pO2 71 mmHg (85-104) L 05/18/18 05:32 ABG O2 Saturation 94 % (95-98) L 05/18/18 05:32 PT/INR, D-dimer PT 12.1 Seconds (9.4-12.1) 05/17/18 10:51 Abnormal lab findings: Abnormal lab results ESR 19 mm/hr (0-10) H 05/17/18 18:05 ABG pO2 71 mmHg (85-104) L 05/18/18 05:32 ABG Total CO2 28 mEq/L (20-26) H 05/18/18 05:32 ABG O2 Saturation 94 % (95-98) L 05/18/18 05:32 VBG pO2 59 mmHg (25-50) H 05/17/18 11:11 Creatinine 1.60 mg/dL (0.70-1.30) H 05/18/18 04:10 Est GFR ( Amer) 51 (> 60) L 05/18/18 04:10 Est GFR (Non-Af Amer) 42 (> 60) L 05/18/18 04:10 Glucose 205 mg/dL (70-105) H 05/18/18 04:10 POC Glucose 181 mg/dL (70-99) H 05/18/18 05:31 AST 50 Units/L (13-39) H 05/17/18 10:51 B-Natriuretic Peptide 223 pg/mL (Less than 100) H 05/17/18 10:51 Ur Specific [place] 1.026 (1.010-1.025) H 05/17/18 11:30 Urine Protein >=300 mg/dL (Neg-Trace) H 05/17/18 11:30 Urine Glucose (UA) 500 mg/dL (Normal) H 05/17/18 11:30 Ur Squamous Epith Cells Many per lpf (None-Few) H 05/17/18 11:30 Salicylates < 2.5 mg/dL (15.0-30.0) L 05/17/18 15:53 Acetaminophen < 10 mcg/mL (10-20) L 05/17/18 15:53 - Microbiology Findings Microbiology Findings: Microbiology, Last 48 Hours 05/17/18 18:05 Sputum Culture - Preliminary Aspirate - Clinical Findings Intake & Output: Intake & Output 05/17/18 05/17/18 05/18/18 15:59 23:59 07:59 Intake Total 1050 / 2050 650 / 650 1139 / 1139 Output Total 150 / 150 650 / 650 1660 / 1660 Balance 900 / 1900 0 / 0 -521 / -521 Weight 97.6 kg
[2018-05-18] MEDS ORDERED: 0.9 % Sodium Chloride 250 ML ONE (08:53)
[2018-05-18] MEDS: Pantoprazole 40 MG VIAL IVP SCH (09:29)
[2018-05-18] MEDS: Apixaban 5 MG TABLET PO SCH ×2 (09:29→19:54)
[2018-05-18] MEDS: Chlorhexidine Rinse 15 ML MOUTHWASH MM SCH ×2 (09:29→19:39)
[2018-05-18] MEDS: Vancomycin Oral Soln 125 MG/2.5 ML UDC PO SCH ×4 (12:03→19:54)
[2018-05-18] MEDS: Dexmedetomidine HCl 400 MCG/100 ML MLS IVC SCH ×2 (12:06→20:00)
[2018-05-18 17:24] LABS: Magnesium 1.9 mg/dL (1.6-2.6); Potassium 4.3 mEq/L (3.5-5.1)
[2018-05-18] MEDS: Norepinephrine 4 MG in D5% in Water 250 ML IVC SCH (19:39)
--- NOTE | 2018-05-18 21:00 | Electrocardiograph Report ---
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
[2018-05-18] MEDS ORDERED: Piperacillin/Tazobactam 3.375 GM in 0.9 % Sodium Chloride Mini Bag 100 ML IVPB SCH (23:00)
[2018-05-19] MEDS: Lacri-Lube 3.5 GM TUBE BOTH EYES SCH ×3 (00:41→12:24)
[2018-05-19] MEDS: Dexmedetomidine HCl 400 MCG/100 ML MLS IVC SCH (02:59)
[2018-05-19 03:41] LABS: Basophils % 0.4 %; Eosinophils # 0.2 K/mcL (0.0-0.6); Eosinophils % 2.2 %; Hematocrit 43.7 % (37.5-50.1); Hemoglobin 15.3 g/dL (12.9-16.9); Immature Granulocytes % 0.7 % (0-4); Lymphocytes # 1.5 K/mcL (0.6-4.6); Lymphocytes % 17.9 %; Mean Corpuscular Hemoglobin 32.4 pg (28.0-33.3); Mean Corpuscular Volume 92.6 fL (83.0-100.0); Mean Platelet Volume 10.2 fL (9.4-12.4); Monocytes # 0.6 K/mcL (0.0-1.3); Monocytes % 7.4 %; Neutrophils # 5.9 K/mcL (1.6-8.9); Platelet Count 155 K/mcL (140-400); Red Blood Count 4.72 M/mcL (4.19-5.50); Red Cell Distribution Width 12.5 % (11.5-14.5); Segmented Neutrophils % 71.4 %
[2018-05-19 04:02] LABS: Calcium 8.9 mg/dL (8.6-10.3); Potassium 4.6 mEq/L (3.5-5.1)
[2018-05-19] MEDS: Insulin LISPRO 300 UNITS/3 ML VIAL SQ SCH ×2 (05:30→12:24)
--- NOTE | 2018-05-19 06:48 | Pulmonology Progress Note ---
Date of Encounter: 05/19/18 Time of Encounter: 06:48 Assessment and Plan (1) Encephalopathy acute Current Visit: Yes Status: Acute He presented after being found unresponsive of unclear etiology head CT on admission was with out acute process The patient has had 3 admissions since December for acute confusional state or rupinder obtundation His had extensive evaluation including non-con contrasted head CT 3 MRI of brain with of which were just notable for chronic changes associated with what appears to be hyper chronic hyperlipidemia and hypertensive disease leading to small vessel ischemic disease carotid duplex and echocardiogram. Clinical course thus far appears to be near full resolution with some mild delirium today Suspected underlying dementia which is likely progressive based upon conversation with family at home I suspect patient would benefit from formal neurological consultation as he has not been seen yet by neurologist during these admissions Neuro consult placed PT/OT evaluation For consultation patient may need to. Discharge to [facility] facility possibly on permanent basis Formal speech and swallow evaluation will likely be needed prior to taking by mouth (2) Atrial fibrillation Current Visit: No Status: Chronic Currently rate controlled periodic episodes of bradycardia but patient is not hypotensive during these episodes will continue to monitor on telemetry if persistent episodes of bradycardia outside of critical illness or possibility of sedation effect will need cardiology consultation Cont NOAC for LTA Qualifiers: Qualified Code(s): I48.2 - Chronic atrial fibrillation (3) Diabetes mellitus, type 2 Current Visit: No Status: Acute Continue sliding scale coverage for now Once taking diet will likely need basal dosing Qualifiers: Qualified Code(s): E11.21 - Type 2 diabetes mellitus with diabetic nephropathy; Z79.4 - manager intermediate (current) use of insulin (4) History of CVA (cerebrovascular accident) Current Visit: No Status: Acute Continue statin and aspirin the patient is on LTA for atrial fibrillation (5) Colitis Current Visit: Yes Status: Acute Patient came in with undifferentiated obtundation. There is concern that he presented with sepsis given that he was hypotensive on admission CT of the abdomen was suggestive of colitis although patient does not have any abdominal tenderness on examination he remains afebrile and has a normal white count his inflammatory markers are also not elevated he has not had any further episodes of diarrhea since he was admitted Stop antibiotics and monitor Stable for transfer to [facility] telemetry for ongoing care Subjective Principal diagnosis: Altered mental status Interval history: Mr. Subramanian is a relatively well overnight. He was able to be successfully liberated from the ventilator yesterday and has remained on nasal cannula O2. He has had a couple episodes of significant agitation overnight requiring nursing to restrain the patient. Today he is awake he is able to follow my commands he is confused does not understand what happened and is asking me what day it is where he is located. He has had episodic bradycardia. Although currently off any chronotropic support. Objective PUL Vital signs: Last Vital Signs Temp 98.0 F 05/19/18 04:00 Pulse 69 05/19/18 06:00 Resp 22 05/19/18 06:00 BP 113/71 05/19/18 06:00 Pulse Ox 100 05/19/18 06:00 General appearance: no acute distress Eyes: nonicteric ENT: oropharynx dry Neck: supple Effort: normal Auscultation: bilateral: rales Cardiovascular: irregular rhythm Gastrointestinal: normoactive bowel sounds, soft, non-tender Integumentary: normal, other (Right CVC catheter without evidence of infection) Extremities: no edema Musculoskeletal: no deformities non-focal exam, pupils equal and round, CN II-XII normal anxious Results - Laboratory Findings CBC and BMP: 05/19/18 03:35 05/19/18 03:35 ABG ABG pH 7.38 pH Units (7.32-7.45) 05/18/18 05:32 ABG pCO2 44 mmHg (35-45) 05/18/18 05:32 ABG pO2 71 mmHg (85-104) L 05/18/18 05:32 ABG O2 Saturation 94 % (95-98) L 05/18/18 05:32 PT/INR, D-dimer PT 12.1 Seconds (9.4-12.1) 05/17/18 10:51 Abnormal lab findings: Abnormal lab results ESR 19 mm/hr (0-10) H 05/17/18 18:05 ABG pO2 71 mmHg (85-104) L 05/18/18 05:32 ABG Total CO2 28 mEq/L (20-26) H 05/18/18 05:32 ABG O2 Saturation 94 % (95-98) L 05/18/18 05:32 VBG pO2 59 mmHg (25-50) H 05/17/18 11:11 BUN 24 mg/dL (8-23) H 05/19/18 03:35 Creatinine 1.83 mg/dL (0.70-1.30) H 05/19/18 03:35 Est GFR ( Amer) 44 (> 60) L 05/19/18 03:35 Est GFR (Non-Af Amer) 36 (> 60) L 05/19/18 03:35 Glucose 190 mg/dL (70-105) H 05/19/18 03:35 POC Glucose 154 mg/dL (70-99) H 05/19/18 05:25 AST 50 Units/L (13-39) H 05/17/18 10:51 B-Natriuretic Peptide 223 pg/mL (Less than 100) H 05/17/18 10:51 Ur Specific [place] 1.026 (1.010-1.025) H 05/17/18 11:30 Urine Protein >=300 mg/dL (Neg-Trace) H 05/17/18 11:30 Urine Glucose (UA) 500 mg/dL (Normal) H 05/17/18 11:30 Ur Squamous Epith Cells Many per lpf (None-Few) H 05/17/18 11:30 Salicylates < 2.5 mg/dL (15.0-30.0) L 05/17/18 15:53 Acetaminophen < 10 mcg/mL (10-20) L 05/17/18 15:53 - Microbiology Findings Microbiology Findings: Microbiology, Last 48 Hours 05/17/18 18:05 Sputum Culture - Preliminary Aspirate - Clinical Findings Intake & Output: Intake & Output 05/18/18 05/18/18 05/19/18 15:59 23:59 07:59 Intake Total 304 / 304 260 / 260 1250 / 1250 Output Total 500 / 500 100 / 100 650 / 650 Balance -196 / -196 160 / 160 600 / 600 Weight 99 kg Consult Discharge Plan - Plan [facility]errals: [facility] [Primary Care Provider] -
[2018-05-19] MEDS: Apixaban 5 MG TABLET PO SCH ×2 (08:37→20:38)
[2018-05-19] MEDS ORDERED: Aspirin Enteric Coated 81 MG Tablet PO SCH (09:00)
[2018-05-19] MEDS ORDERED: D5% in Water 1,000 ML IVC PRN (13:17)
[2018-05-19] MEDS ORDERED: Dextrose Gel 15 GM/37.5 ML TUBE PO PRN ×2 (13:17)
[2018-05-19] MEDS ORDERED: 0.9 % Sodium Chloride 500 ML IVC PRN (13:17)
[2018-05-19] MEDS ORDERED: *HR* Dextrose 50 % in Water (Syg) 50 ML SYRINGE IVP PRN (13:17)
[2018-05-19] MEDS ORDERED: Haloperidol Lactate 5 MG/ML VIAL IVP ONE (17:49)
[2018-05-19] MEDS ORDERED: Insulin LISPRO 300 UNITS/3 ML VIAL SQ SCH (18:00)
[2018-05-20] MEDS ORDERED: *HR* Metoprolol 5 MG/5 ML VIAL IVP ONE (00:50)
[2018-05-20] MEDS ORDERED: *HR* Metoprolol 5 MG/5 ML VIAL IVP SCH (01:00)
[2018-05-20 04:42] LABS: ABG Base Excess -1 mEq/L (-2 to 3); ABG HCO3 23 mEq/L (21-27); ABG Oxygen Saturation 98 % (95-98); ABG PCO2 38 mmHg (35-45); ABG PO2 109 mmHg (85-104); ABG TCO2 25 mEq/L (20-26); Blood Gas FiO2 2.5 (1-15=lpm or21-100=%)
[2018-05-20 05:04] LABS: Basophils # 0.1 K/mcL (0.0-0.2); Basophils % 0.7 %; Eosinophils # 0.2 K/mcL (0.0-0.6); Eosinophils % 2.5 %; Hematocrit 43.7 % (37.5-50.1); Hemoglobin 15.2 g/dL (12.9-16.9); Lymphocytes # 1.4 K/mcL (0.6-4.6); Mean Corpuscular HGB Conc 34.8 g/dL (31.6-35.5); Mean Corpuscular Hemoglobin 32.3 pg (28.0-33.3); Mean Corpuscular Volume 92.8 fL (83.0-100.0); Mean Platelet Volume 10.6 fL (9.4-12.4); Monocytes # 0.7 K/mcL (0.0-1.3); Monocytes % 9.1 %; Neutrophils # 4.8 K/mcL (1.6-8.9); Platelet Count 176 K/mcL (140-400); Red Blood Count 4.71 M/mcL (4.19-5.50); Red Cell Distribution Width 12.7 % (11.5-14.5); Segmented Neutrophils % 67.7 %
[2018-05-20 05:25] LABS: Calcium 9.2 mg/dL (8.6-10.3); Potassium 4.2 mEq/L (3.5-5.1)
[2018-05-20] MEDS: Aspirin Enteric Coated 81 MG Tablet PO SCH (08:09)
[2018-05-20] MEDS: Apixaban 5 MG TABLET PO SCH ×2 (08:09→20:32)
[2018-05-20] MEDS: Insulin LISPRO 300 UNITS/3 ML VIAL SQ SCH ×4 (08:10→20:41)
--- NOTE | 2018-05-20 09:57 | Event Note ---
Date of Encounter: 05/20/18 Time of Encounter: 09:54 Patient was seen and examined. I agree with the progress note as written by the resident physician. No acute events. Patient is afebrile and is on room air. No loose stools. Patient initially admitted to the ICU intubated and with hypotension, A. fib with RVR, acute abdominal colitis. He has received IV antibiotics for couple days and has been off antibiotics. Never had a white count. He is been extubated 2 days ago and transferred out of the ICU now. Feels well. He is yet to be seen by neurology. GEN: NAD CVS: RRR. S1, S2, No m/r/g RESP: CTAB ABD: Soft, NT, ND, +BS EXT: No edema. 2+ DP. No rashes NEURO: Nonfocal This seems to be recurrent. Underlying dementia? Cause of unresponsiveness is unclear but may be due to dehydration/hypotension versus A. fib with RVR. All of that is resolved now No antibiotics TSH is normal Kidney function is consistent with known chronic kidney disease. Neurology to see Resume beta therese Continue Eliquis Check an echocardiogram Unremarkable Carotids last month MRI last month with nothing acute PTOT Possibly needs placed
--- NOTE | 2018-05-20 10:20 | Internal Med Progress Note ---
<Sree Lynne - Last Filed: 05/20/18 14:42> Date of Encounter: 05/20/18 Time of Encounter: 08:10 - Assessment and plan (1) Acute encephalopathy Current Visit: Yes Status: Resolved Assessment and plan: Presented with unresponsiveness - intubated, hypotensive, and A. fib with RVR in the ICU Resolving now with negative with unclear etiology thus far - possibly dehydration, A.fib, and underlying dementia complicating the picture Recently admitted for concern for CVA - unremarkable brain MRI and carotid ultrasound about a month ago Labs unremarkable. Renal function near baseline Concern for colitis on CT, but afebrile and no luekocytosis. Sepsis w/u negative PLAN: Appreciate neurology recommendations PT/OT - possible placement, per SW he does not want to go to ECF, will await formal PT/OT recommendations (2) Atrial fibrillation Current Visit: Yes Status: Resolved Assessment and plan: Presented with A. fib with RVR - regular on my exam today Continue Eliquis Repeat Echo - last echo was 09/2017: LVEF 50%, No pulmonary hypertension, No significant valvular dysfunction Qualifiers: Atrial fibrillation type: paroxysmal Qualified Code(s): I48.0 - Paroxysmal atrial fibrillation (3) Colitis Current Visit: Yes Status: Acute Assessment and plan: No concerning bowel history, no evidence of systemic infection. No antibiotics Does not appear to be a contributing factor to his encephalopathy (4) Diabetes mellitus, type 2 Current Visit: Yes Status: Acute Assessment and plan: BG checks improving - continue bolus and SSI regimen Qualifiers: Diabetes mellitus long term care social worker insulin use: without long term care social worker use Diabetes mellitus complication status: with kidney complications Diabetes mellitus complication detail: with chronic kidney disease Chronic kidney disease stage : stage 3 (moderate) Qualified Code(s): E11.22 - Type 2 diabetes mellitus with diabetic chronic kidney disease; N18.3 - Chronic kidney disease, stage 3 ( moderate) (5) History of CVA (cerebrovascular accident) Current Visit: No Status: Acute Assessment and plan: Hx of CVA. No acute concerns on head CT this admission MRI without acute findings one month ago Continue ASA and statin Neuro consult (6) DVT prophylaxis Current Visit: Yes Status: Acute Assessment and plan: Continue Eliquis - Subjective Interval history: Pt admitted with acute encephalopathy of unclear etiology, found unresponsive at home. Just transferred out of the ICU yesterday, was intubated, hypotensive, A. fib with RVR, and colitis. Pt reports that today he is feeling well with no complaints. He is very hard of hearing. Denies dizziness, vision changes, weakness, chest pain, dyspnea, abdominal pain, change in bowels, dysuria or LE edema. A&Ox3 but reports stories that do not make sense - starts telling a story of being paid by a doctor to do "dirty work" in some place called "[place] " but he didn't want to do it. He is not sure why he is in the hospital other than that he blames it on his brother. - Constitutional Vitals: Temp Pulse Resp BP Pulse Ox 98.1 F 93 18 120/69 94 05/20/18 07:14 05/20/18 07:14 05/20/18 07:14 05/20/18 07:14 05/20/18 07:14 General appearance: Present: A&O X 3 Exam: Answers questions appropriately, but begins telling stories that do not make sense - Head Head exam: Present: atraumatic, normocephalic - Eye Eye exam: Present: PERRL, conjuntiva pink, sclera anicteric - Neck Neck exam general surgery: Present: trachea midline - Respiratory Respiratory exam: Present: CTAB. Absent: accessory muscle use, rales, rhonchi, wheezes - Cardiovascular Cardiovascular exam: Present: RRR, +S1, +S2. Absent: diastolic murmur, systolic murmur - GI/Abdominal GI/Abdominal exam: Present: normal bowel sounds, soft, no peritoneal signs. Absent: distended, tenderness - Extremities Exam Extremities exam: Present: warm, radial pulses palpable and symmetrical. Absent : pedal edema - Neurological Exam Neurological exam: Present: CN II-XII intact, oriented X3, no focal deficits, strengths equal and symetr throughout. Absent: facial droop, speech deficit - Skin Skin exam: Present: dry, intact Internal Medicine: Result - Labs CBC & Chem 7: 05/20/18 03:58 05/20/18 03:58 Labs: Short CBC 05/20/18 Range/Units 03:58 WBC 7.2 (4.3-11.1) K/mcL Hgb 15.2 (12.9-16.9) g/dL Hct 43.7 (37.5-50.1) % Plt Count 176 (140-400) K/mcL Neutrophils # 4.8 (1.6-8.9) K/mcL BMP 05/20/18 03:58 Sodium 134 L Potassium 4.2 Chloride 105 Carbon Dioxide 22 L BUN 26 H Creatinine 1.66 H Glucose 153 H Calcium 9.2 - ABG Interpretation ABG results: ABG ABG pH 7.40 pH Units (7.32-7.45) 05/20/18 04:40 ABG pCO2 38 mmHg (35-45) 05/20/18 04:40 ABG pO2 109 mmHg (85-104) H 05/20/18 04:40 ABG O2 Saturation 98 % (95-98) 05/20/18 04:40 PT/INR, D-dimer PT 12.1 Seconds (9.4-12.1) 05/17/18 10:51 Consult Discharge Plan - Plan [facility]errals: [facility] [Primary Care Provider] - <Dennis Mills M - Last Filed: 05/20/18 15:26> Date of Encounter: 05/20/18 - Assessment and plan (1) Metabolic encephalopathy Current Visit: Yes Status: Acute - Constitutional Vitals: Temp Pulse Resp BP Pulse Ox 98.0 F 102 18 153/82 95 05/20/18 15:05 05/20/18 15:05 05/20/18 15:05 05/20/18 15:05 05/20/18 15:05 Internal Medicine: Result - Labs CBC & Chem 7: 05/20/18 03:58 05/20/18 03:58 Labs: Short CBC 05/20/18 Range/Units 03:58 WBC 7.2 (4.3-11.1) K/mcL Hgb 15.2 (12.9-16.9) g/dL Hct 43.7 (37.5-50.1) % Plt Count 176 (140-400) K/mcL Neutrophils # 4.8 (1.6-8.9) K/mcL BMP 05/20/18 03:58 Sodium 134 L Potassium 4.2 Chloride 105 Carbon Dioxide 22 L BUN 26 H Creatinine 1.66 H Glucose 153 H Calcium 9.2 - ABG Interpretation ABG results: ABG ABG pH 7.40 pH Units (7.32-7.45) 05/20/18 04:40 ABG pCO2 38 mmHg (35-45) 05/20/18 04:40 ABG pO2 109 mmHg (85-104) H 05/20/18 04:40 ABG O2 Saturation 98 % (95-98) 05/20/18 04:40 PT/INR, D-dimer PT 12.1 Seconds (9.4-12.1) 05/17/18 10:51
--- NOTE | 2018-05-20 13:32 | Neurology - Consult Note ---
<Antoine Choudhury - Last Filed: 05/20/18 14:09> Date of Encounter: 05/20/18 Time of Encounter: 13:00 Assessment and Plan (1) Altered mental status Current Visit: Yes Status: Acute He continues to be disoriented to time and has multiple deficiencies in the MMSE including attention, recall, long term care administrator memory, short term memory and calculations. Recent MRI brain was unremarkable for any structural causes. Probable underlying dementia prior to admission. Recommend formal cognitive exam as outpatient. Qualifiers: Altered mental status type: disorientation Qualified Code(s): R41.0 - Disorientation, unspecified Code(s): R41.82 - Altered mental status, unspecified SNOMED Code(s): 933948527 History of Present Illness Chief complaint: Neurology consult for confusion HPI: Mr. Subramanian is a 77 year old male with a PMH significant for HTN, DM, Afib, and dyslipidemia who neurology is consulted for confusion. Majority of HPI comes mostly from pt records. He has been disoriented recently and his brother found him unarousable in a chair at home and called EMS. He was found to be hypotensive in the ED and eventually was intubated and central line placed for pressors. He was admitted to the ICU and when transferred out to the floor after extubation and off pressors he was found to still be confused. He denies being confused recently, states he feels great today and doesn't know why he is still here and wanted me to know he is very angry at whoever restrained him without asking. He was admitted for possible CVA with MRI brain and carotid duplex unremarkable. Past Med Surg Social Fam HX - Past Medical History Medical history: atrial fibrillation, diabetes, hyperlipidemia, hypertension, renal disease Psychiatric history: no psych history - Social History Smoking Status: Former smoker Smokeless Tobacco Status: No Alcohol use: occasionally Drug use: none - Family History Father Family Member Ethnicity: Non- Living Status: Hx Family Cardiac Disorders: Yes ([place]) Hx Family Cancer: Yes (Bladder) Mother Family Member Ethnicity: Non- Living Status: Hx Family Cancer: Yes (Colon) Brother Family Member Ethnicity: Non- Living Status: Still Living Hx Family Cancer: Yes (Unknown what type) Sister Family Member Ethnicity: Non- Living Status: Still Living Hx Family Cardiac Disorders: Yes ([place]) Medications and Allergies Atorvastatin [Lipitor] 10 mg PO HS 06/05/17 [History] Lisinopril [Zestril] 2.5 mg PO DAILY 06/05/17 [History] Metoprolol [Lopressor] 25 mg PO BID 06/05/17 [History] Terazosin [Hytrin] 1 mg PO DAILY 06/05/17 [History] Apixaban [Eliquis] 5 mg PO BID 10/14/17 [History] Cyanocobalamin (Vitamin B-12) [Vitamin B12] 1,000 mcg PO DAILY 10/14/17 [History ] Insulin Glargine,Hum.rec.anlog [Lantus Solostar] 24 unit SQ HS 10/14/17 [History ] Cholecalciferol (Vitamin D3) [Vitamin D3] 1,000 mg PO DAILY 05/17/18 [History] Metformin HCl [Metformin HCl ER] 500 mg PO BID 05/17/18 [History] Naproxen Sodium [Naproxen Sodium] 550 mg PO BID 05/17/18 [History] Paroxetine HCl [Paxil] 20 mg PO DAILY 05/17/18 [History] 3 Allergy/AdvReac Type Severity Reaction Status Date / Time IV Contrast Allergy Anaphylaxis Uncoded 10/14/17 15:15 All Systems: The remainder of the systems were reviewed and are negative Physical Examination - Vital Signs Vital Signs: Initial Vital Signs Temp Pulse Resp BP Pulse Ox 97.1 F L 69 12 89/57 92 05/17/18 10:05 05/17/18 10:05 05/17/18 10:05 05/17/18 10:05 05/17/18 10:05 - Constitutional General appearance: comfortable - Neurologic Sensorimotor examination: intact Detailed motor examination: full strength in all major muscle groups Motor examination - right side: 5/5: deltoids, biceps, triceps, wrist flexion, wrist extension, boiler repairman, hip flexors, tibialis Anterior, quadriceps, toe extension (EHL), plantarflexion Motor examination - left side: 5/5: deltoids, biceps, triceps, wrist flexion, wrist extension, hip flexors, boiler repairman, quadriceps, tibialis Anterior, toe extension (EHL), plantarflexion Detailed sensory examination: intact, light touch Mental Status Examination: awake, alert, oriented to place, no aphasia, agitated , impaired memory, impaired cognition, MMSE (Disoriented to time, thought it was October said he would not talk about "that idiot" when asked who the president was but could not tell me the name or what it starts with, could spell world forward but not backwards, could not do serial 7's, could repeat 3 words to remember and but when asked again got 0/3 correct. The rest of the MMSE was not performed after this.), not reliable historian Cranial nerve examination: PERRL, EOMI, visual frank intact, sensory to face intact, mastication intact, no facial asymmetry is present, no dysarthria, soft palate elevates bilaterally upon phonation, flexes SCM and trapezius muscles symmetrically with full power, tongue protrudes midline, no atrophy or facial fasiculations present Cerebellar examination: no dysmetria, performs finger to nose and heel to bray symmetrically without ataxia, no difficulty with rapid alternating movements Results - Laboratory Findings CBC and BMP: 05/20/18 03:58 05/20/18 03:58 Abnormal lab findings: Abnormal lab results ESR 19 mm/hr (0-10) H 05/17/18 18:05 ABG pO2 109 mmHg (85-104) H 05/20/18 04:40 VBG pO2 59 mmHg (25-50) H 05/17/18 11:11 Sodium 134 mEq/L (136-145) L 05/20/18 03:58 Carbon Dioxide 22 mEq/L (23-29) L 05/20/18 03:58 BUN 26 mg/dL (8-23) H 05/20/18 03:58 Creatinine 1.66 mg/dL (0.70-1.30) H 05/20/18 03:58 Est GFR ( Amer) 49 (> 60) L 05/20/18 03:58 Est GFR (Non-Af Amer) 40 (> 60) L 05/20/18 03:58 Glucose 153 mg/dL (70-105) H 05/20/18 03:58 POC Glucose 149 mg/dL (70-99) H 05/20/18 07:08 AST 50 Units/L (13-39) H 05/17/18 10:51 B-Natriuretic Peptide 223 pg/mL (Less than 100) H 05/17/18 10:51 Ur Specific [place] 1.026 (1.010-1.025) H 05/17/18 11:30 Urine Protein >=300 mg/dL (Neg-Trace) H 05/17/18 11:30 Urine Glucose (UA) 500 mg/dL (Normal) H 05/17/18 11:30 Ur Squamous Epith Cells Many per lpf (None-Few) H 05/17/18 11:30 Salicylates < 2.5 mg/dL (15.0-30.0) L 05/17/18 15:53 Acetaminophen < 10 mcg/mL (10-20) L 05/17/18 15:53 Consult Discharge Plan - Plan [facility]errals: [facility] [Primary Care Provider] - <Troy Selby I - Last Filed: 05/20/18 15:15> Date of Encounter: 05/20/18 Assessment and Plan (1) Altered mental status Current Visit: No Status: Resolved Pt was seen and examined, my medical decision was reviewed with the Resident Physician, I agree with the documented findings, disposition and treatment plas as described except to the extent set forth below Patient likely has underlying dementia but in current clinical context especially with recent illness and being in the ICU do not think Be a good idea to make that diagnosis was patient is back to his baseline I would suggest getting a formal neurological evaluation could be done as an outpatient , that would determined that the level of mental status changes patient is on. At the moment suggest continue current medicationS and current treatments thank you Troy Selby MD Qualifiers: Altered mental status type: disorientation Qualified Code(s): R41.0 - Disorientation, unspecified History of Present Illness HPI: Mr. Subramanian is a 77 year old male All Systems: The remainder of the systems were reviewed and are negative Physical Examination - Vital Signs Vital Signs: Initial Vital Signs Temp Pulse Resp BP Pulse Ox 97.1 F L 69 12 89/57 92 05/17/18 10:05 05/17/18 10:05 05/17/18 10:05 05/17/18 10:05 05/17/18 10:05 Results - Laboratory Findings CBC and BMP: 05/20/18 03:58 05/20/18 03:58 Abnormal lab findings: Abnormal lab results ESR 19 mm/hr (0-10) H 05/17/18 18:05 ABG pO2 109 mmHg (85-104) H 05/20/18 04:40 VBG pO2 59 mmHg (25-50) H 05/17/18 11:11 Sodium 134 mEq/L (136-145) L 05/20/18 03:58 Carbon Dioxide 22 mEq/L (23-29) L 05/20/18 03:58 BUN 26 mg/dL (8-23) H 05/20/18 03:58 Creatinine 1.66 mg/dL (0.70-1.30) H 05/20/18 03:58 Est GFR ( Amer) 49 (> 60) L 05/20/18 03:58 Est GFR (Non-Af Amer) 40 (> 60) L 05/20/18 03:58 Glucose 153 mg/dL (70-105) H 05/20/18 03:58 POC Glucose 149 mg/dL (70-99) H 05/20/18 07:08 AST 50 Units/L (13-39) H 05/17/18 10:51 B-Natriuretic Peptide 223 pg/mL (Less than 100) H 05/17/18 10:51 Ur Specific [place] 1.026 (1.010-1.025) H 05/17/18 11:30 Urine Protein >=300 mg/dL (Neg-Trace) H 05/17/18 11:30 Urine Glucose (UA) 500 mg/dL (Normal) H 05/17/18 11:30 Ur Squamous Epith Cells Many per lpf (None-Few) H 05/17/18 11:30 Salicylates < 2.5 mg/dL (15.0-30.0) L 05/17/18 15:53 Acetaminophen < 10 mcg/mL (10-20) L 05/17/18 15:53
[2018-05-20] MEDS ORDERED: Perflutren Lipid Microsphere 1.3 ML in 0.9 % Sodium Chloride 8.7 ML IVP ONE (13:43)
--- NOTE | 2018-05-20 17:11 | Electrocardiograph Report ---
[place] [address] Test Date: 2018-05-20 Pat Name: Rafy Subramanian Department: 112 Room: 2A11 Gender: M C 13 Catapult Operator: : 1940 Requested By: Eddie Cary Order Number: [id number] Reading MD: Rosalia Lizama Measurements Intervals [place] Rate: 105 P: [place]: 0 QRS: 16 QRSD: 96 T: 16 QT: 354 QTc: 415 Interpretive Statements ATRIAL FIBRILLATION WITH RAPID VENTRICULAR RESPONSE ABNORMAL RHYTHM ECG Electronically Signed On 05-20-2018 17:09:43 EDT by Rosalia Lizama
--- NOTE | 2018-05-20 17:36 | Electrocardiograph Report ---
[address] [place] [address] Test Date: 2018-05-18 Pat Name: Rafy Subramanian Department: 109 Room: 2A11 Gender: M Bridge Rigger: YADIRA : 1940 Requested By: Navi Rivero Order Number: [id number] Reading MD: Rosalia Lizama Measurements Intervals [place] Rate: 157 P: [place]: 0 QRS: 13 QRSD: 96 T: -13 QT: 293 QTc: 381 Interpretive Statements ATRIAL FIBRILLATION WITH RAPID VENTRICULAR RESPONSE LOW QRS VOLTAGE IN EXTREMITY LEADS - BASELINE ARTIFACT POSSIBLE ANTERIOR MYOCARDIAL INFARCTION, PROBABLY OLD ABNORMAL RHYTHM ECG Electronically Signed On 05-20-2018 17:35:06 EDT by Rosalia Lizama
--- NOTE | 2018-05-20 17:38 | Electrocardiograph Report ---
[address] [place] [address] Test Date: 2018-05-18 Pat Name: Rafy Subramanian Department: 109 Room: 2A11 Gender: M Operations Administrator: YADIRA : 1940 Requested By: Vinny Robbins Order Number: [id number] Reading MD: Rosalia Lizama Measurements Intervals [place] Rate: 157 P: [place]: 0 QRS: 18 QRSD: 97 T: 21 QT: 294 QTc: 382 Interpretive Statements ATRIAL FIBRILLATION WITH RAPID VENTRICULAR RESPONSE LOW QRS VOLTAGE IN EXTREMITY LEADS POSSIBLE ANTERIOR MYOCARDIAL INFARCTION, PROBABLY OLD ABNORMAL RHYTHM ECG Electronically Signed On 05-20-2018 17:36:49 EDT by Rosalia Lizama
[2018-05-21 05:20] LABS: Calcium 9.3 mg/dL (8.6-10.3); Potassium 4.4 mEq/L (3.5-5.1)
[2018-05-21] MEDS: Insulin LISPRO 300 UNITS/3 ML VIAL SQ SCH ×4 (07:54→21:12)
[2018-05-21] MEDS: Aspirin Enteric Coated 81 MG Tablet PO SCH (07:55)
[2018-05-21] MEDS: Apixaban 5 MG TABLET PO SCH ×2 (07:55→21:16)
--- NOTE | 2018-05-21 09:00 | Internal Med Progress Note ---
<Sree Lynne R - Last Filed: 05/21/18 16:32> Hospitalist Progress Note - Encounter Date of Encounter: 05/21/18 Time of Encounter: 08:57 - Subjective Interval History: Pt admitted with acute encephalopathy of unclear etiology, found unresponsive at home. Pt reports that today he is feeling well with no complaints. He is very hard of hearing. Denies dizziness, vision changes, weakness, chest pain, dyspnea, abdominal pain, change in bowels, dysuria or LE edema. A&Ox3 but is easily distracted. Reports concern of "the black any who sits out there" and wondering where he went. He knows that his brother wants to get him in an ECF, but he doesn't answer my questions when asking if he would be willing to go to a rehab facility where they have people to help him. Per SW note, family does not think they can care for him at home. Update in afternoon: pt became agitated and aggressive with staff, walking the halls, and called 911. Pt stated he wanted to go to the hospital. He was not responding appropriately to questions. Making comments that do not make sense - comments about being "racism with calling people he and she". He was given 0.5mg haldol and continued to be agitated and walking the halls, so another 0.5 mg of haldol was given. PRN order placed for 1mg haldol. D/W brother who has been living with him and he reports that he has been increasing becoming more confused with a slow decline day by day. He gave an example of trying to get into the wrong car and getting upset when corrected and not understanding that it was the wrong car. - Exam Vitals: Temp Pulse Resp BP Pulse Ox 97.5 F L 80 17 127/70 99 05/21/18 07:21 05/21/18 07:21 05/21/18 07:21 05/21/18 07:21 05/21/18 07:21 Exam: GEN: No acute distress, A&O3 this morning - in the afternoon not oriented HEAD: Atraumatic, normocephalic EYES: Pupils symmetric, sclerae white, conjunctivae pink HEART: irregularly irregular, normal S1 and S2, no murmurs LUNGS: Clear to auscultation bilaterally, no wheezes, rhonchi, or crackles ABD: Soft, nontender, nondistended, bowel sounds present EXT: No edema noted, pulses 2/4 NEURO: No focal deficits, cooperative with exam - Assessment and Plan (1) Acute encephalopathy Current Visit: Yes Status: Acute Assessment and Plan: Presented with unresponsiveness - intubated, hypotensive, and A. fib with RVR in the ICU Resolving now with negative with unclear etiology thus far - possibly dehydration, A.fib, and underlying dementia complicating the picture - BCx no growth to date, no evidence of UTI on admission, UDS negative, TSH normal Recently admitted for concern for CVA - unremarkable brain MRI and carotid ultrasound about a month ago Labs unremarkable. Renal function near baseline Concern for colitis on CT, but afebrile and no luekocytosis. Sepsis w/u negative Gram positive cocci noted on initial sputum culture - no evidence of PNA or respiratory distress, likely a contaminate but will continue to monitor for s/s of infection PLAN: Follow-up with neurology for formal cognitive evaluation once back to baseline PT/OT recommends placement - family would like ECF as well Consult to eddi for evaluation of delirium/dementia Check B12, foalte, and ammonia levels (2) Atrial fibrillation Current Visit: Yes Status: Chronic Assessment and Plan: Presented with A. fib with RVR - rate controlled now. Continue Eliquis TTE: LVEF 45%, mild systolic dysfunction, no LV thrombus, no PFO, mild-moderate aortic regurgitation (3) Agitation Current Visit: Yes Status: Acute Assessment and Plan: Increasing agitation with unclear etiology Appears to a chronic course of dementia with acute periods of delirium PRN haldol 1mg Consult to eddi for further evaluation (4) Colitis Current Visit: Yes Status: Acute Assessment and Plan: No concerning bowel history, no evidence of systemic infection. No antibiotics Does not appear to be a contributing factor to his encephalopathy (5) Diabetes mellitus, type 2 Current Visit: Yes Status: Chronic Assessment and Plan: BG checks improving - continue bolus and SSI regimen (6) History of CVA (cerebrovascular accident) Current Visit: No Status: Acute Assessment and Plan: Hx of CVA. No acute concerns on head CT this admission MRI without acute findings one month ago Continue ASA and statin Neuro following DVT Prophylaxis: Continue Eliquis - Time Spent with Patient Total time spent is greater than 50% in coordination of care (as documented) at patient's floor/unit and/or counseling patient: Internal Medicine: Result - Labs CBC & Chem 7: 05/20/18 03:58 05/21/18 04:32 Labs: BMP 05/21/18 04:32 Sodium 136 Potassium 4.4 Chloride 109 H Carbon Dioxide 19 L BUN 27 H Creatinine 1.47 H Glucose 179 H Calcium 9.3 - ABG Interpretation ABG results: ABG ABG pH 7.40 pH Units (7.32-7.45) 05/20/18 04:40 ABG pCO2 38 mmHg (35-45) 05/20/18 04:40 ABG pO2 109 mmHg (85-104) H 05/20/18 04:40 ABG O2 Saturation 98 % (95-98) 05/20/18 04:40 PT/INR, D-dimer PT 12.1 Seconds (9.4-12.1) 05/17/18 10:51 Consult Discharge Plan - Plan Referrals: [facility] [Primary Care Provider] - <Cherrie Jay - Last Filed: 05/21/18 17:34> Hospitalist Progress Note - Encounter Date of Encounter: 05/21/18 - Exam Vitals: Temp Pulse Resp BP Pulse Ox 98.5 F 89 19 105/69 95 05/21/18 16:09 05/21/18 16:09 05/21/18 16:09 05/21/18 16:09 05/21/18 16:09 - Assessment and Plan (1) Metabolic encephalopathy Current Visit: Yes Status: Acute - Time Spent with Patient Total time spent is greater than 50% in coordination of care (as documented) at patient's floor/unit and/or counseling patient: Internal Medicine: Result - Labs CBC & Chem 7: 05/20/18 03:58 05/21/18 04:32 Labs: BMP 05/21/18 04:32 Sodium 136 Potassium 4.4 Chloride 109 H Carbon Dioxide 19 L BUN 27 H Creatinine 1.47 H Glucose 179 H Calcium 9.3 - ABG Interpretation ABG results: ABG ABG pH 7.40 pH Units (7.32-7.45) 05/20/18 04:40 ABG pCO2 38 mmHg (35-45) 05/20/18 04:40 ABG pO2 109 mmHg (85-104) H 05/20/18 04:40 ABG O2 Saturation 98 % (95-98) 05/20/18 04:40 PT/INR, D-dimer PT 12.1 Seconds (9.4-12.1) 05/17/18 10:51 - Attending Attestation I have seen and examined this patient independently. I have discussed with resident physician Dr. Balbuena regarding the management plan. Agree with the documentation. <Sree Lynne R - Last Filed: 05/21/18 16:32> (2) Atrial fibrillation Qualifiers: Atrial fibrillation type: paroxysmal Qualified Code(s): I48.0 - Paroxysmal atrial fibrillation (5) Diabetes mellitus, type 2 Qualifiers: Diabetes mellitus penitentiary insulin use: without penitentiary use Diabetes mellitus complication status: with kidney complications Diabetes mellitus complication detail: with chronic kidney disease Chronic kidney disease stage: stage 3 (moderate) Qualified Code(s): E11.22 - Type 2 diabetes mellitus with diabetic chronic kidney disease; N18.3 - Chronic kidney disease, stage 3 ( moderate)
--- NOTE | 2018-05-21 09:45 | Neurology Progress Note ---
Date of Encounter: 05/21/18 Time of Encounter: 07:25 Assessment and Plan (1) Dementia Current Visit: Yes Status: Acute Patient likely has underlying dementia most likely got exacerbated by this recent illness when he was admitted with this episode of unresponsiveness was in the ICU now better alert and awake but still having some occasional hallucination and confusion. He may not return completely back to his baseline he did have a workup earlier including MRI of the brain that has been negative for any acute findings. Echocardiogram is been negative as well. Recently he is been sick and had this mental status likely related to underlying infection and metabolic disturbances sometime this patient may not return back to their baseline and may continue to have problem with her short- term memory. As clinically stable Could be discharged to home or assisted facility follow-up with neurology in few weeks for further evaluation and confirm diagnosis of dementia Qualifiers: Dementia type: unspecified type Dementia behavioral disturbance: without behavioral disturbance Qualified Code(s): F03.90 - Unspecified dementia without behavioral disturbance Subjective Principal diagnosis: Altered mental status Interval history: Overall patient is stable continued to have since episodic confusion oriented to person and place follow simple commands Objective - Constitutional Vitals: Temp Pulse Resp BP Pulse Ox 97.5 F L 80 17 127/70 99 05/21/18 07:21 05/21/18 07:21 05/21/18 07:21 05/21/18 07:21 05/21/18 07:21 - Neurological Exam Sensorimotor examination: Present: intact Motor Examination: Present: full strength in all major muscle groups Motor examination - left side: 5/5: deltoids, biceps, triceps, wrist flexion, wrist extension, hip flexors, 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 The rest of the MMSE was not performed after this.), not reliable historian Cranial nerve examination: Present: PERRL, EOMI, visual frank intact, sensory to face intact, mastication intact, no facial asymmetry is present, no dysarthria, soft palate elevates bilaterally upon phonation, flexes SCM and trapezius muscles symmetrically with full power, tongue protrudes midline, no atrophy or facial fasiculations present Cerebellar examination: Present: no dysmetria, performs finger to nose and heel to bray symmetrically without ataxia, no difficulty with rapid alternating movements Results - Laboratory Findings CBC and BMP: 05/20/18 03:58 05/21/18 04:32 Abnormal lab findings: Abnormal lab results ESR 19 mm/hr (0-10) H 05/17/18 18:05 ABG pO2 109 mmHg (85-104) H 05/20/18 04:40 VBG pO2 59 mmHg (25-50) H 05/17/18 11:11 Chloride 109 mEq/L (98-107) H 05/21/18 04:32 Carbon Dioxide 19 mEq/L (23-29) L 05/21/18 04:32 BUN 27 mg/dL (8-23) H 05/21/18 04:32 Creatinine 1.47 mg/dL (0.70-1.30) H 05/21/18 04:32 Est GFR ( Amer) 56 (> 60) L 05/21/18 04:32 Est GFR (Non-Af Amer) 46 (> 60) L 05/21/18 04:32 Glucose 179 mg/dL (70-105) H 05/21/18 04:32 POC Glucose 166 mg/dL (70-99) H 05/20/18 19:57 AST 50 Units/L (13-39) H 05/17/18 10:51 B-Natriuretic Peptide 223 pg/mL (Less than 100) H 05/17/18 10:51 Ur Specific [place] 1.026 (1.010-1.025) H 05/17/18 11:30 Urine Protein >=300 mg/dL (Neg-Trace) H 05/17/18 11:30 Urine Glucose (UA) 500 mg/dL (Normal) H 05/17/18 11:30 Ur Squamous Epith Cells Many per lpf (None-Few) H 05/17/18 11:30 Salicylates < 2.5 mg/dL (15.0-30.0) L 05/17/18 15:53 Acetaminophen < 10 mcg/mL (10-20) L 05/17/18 15:53 Consult Discharge Plan - Plan [facility]errals: [facility] [Primary Care Provider[facility] -
[2018-05-21] MEDS ORDERED: Haloperidol Lactate 5 MG/ML VIAL IVP ONE ×2 (14:27→15:20)
[2018-05-21] MEDS ORDERED: Haloperidol Lactate 5 MG/ML VIAL IVP PRN ×2 (14:39→15:19)
[2018-05-22 05:03] LABS: Basophils # 0.1 K/mcL (0.0-0.2); Eosinophils # 0.2 K/mcL (0.0-0.6); Eosinophils % 3.9 %; Hematocrit 42.7 % (37.5-50.1); Hemoglobin 14.9 g/dL (12.9-16.9); Immature Granulocytes % 1.4 % (0-4); Lymphocytes # 2.4 K/mcL (0.6-4.6); Lymphocytes % 38.5 %; Mean Corpuscular HGB Conc 34.9 g/dL (31.6-35.5); Mean Corpuscular Hemoglobin 32.1 pg (28.0-33.3); Mean Platelet Volume 10.2 fL (9.4-12.4); Monocytes # 0.6 K/mcL (0.0-1.3); Monocytes % 9.1 %; Neutrophils # 2.9 K/mcL (1.6-8.9); Platelet Count 180 K/mcL (140-400); Red Blood Count 4.64 M/mcL (4.19-5.50); Red Cell Distribution Width 12.8 % (11.5-14.5); Segmented Neutrophils % 46.1 %
[2018-05-22 05:21] LABS: Calcium 9.1 mg/dL (8.6-10.3); Potassium 4.1 mEq/L (3.5-5.1)
[2018-05-22 05:46] LABS: Folate 13.3 ng/mL (3.0-16.0)
[2018-05-22] MEDS: Insulin LISPRO 300 UNITS/3 ML VIAL SQ SCH ×4 (07:33→20:53)
--- NOTE | 2018-05-22 08:24 | Internal Med Progress Note ---
<Huey Jay - Last Filed: 05/22/18 11:29> Hospitalist Progress Note - Encounter Date of Encounter: 05/22/18 Time of Encounter: 08:22 - Subjective Interval History: Patient seen and examined. He states he is feeling well this morning and only has mild cough when he lays flat. He denies any chest pain, shortness of breath , sputum production, nausea, vomiting, fevers. Per nursing notes, patient has been calm this morning and has not required any Haldol today. - Exam Vitals: Temp Pulse Resp BP Pulse Ox 97.6 F 81 16 149/81 95 05/22/18 07:04 05/22/18 07:04 05/22/18 07:04 05/22/18 07:04 05/22/18 07:04 Exam: Gen: NAD, alert, awake HEENT: NCAT, EOMI, neck supple, no LAD Cardiac: RRR, no murmur, no carotid bruits Lungs: CTAB, no w/r/r, easy respirations Ext: 2+ pitting edema bilaterally, 2+ pedal pulses bilaterally Neuro: appropriate affect, answers questions appropriately - Assessment and Plan (1) Acute encephalopathy Current Visit: Yes Status: Acute Assessment and Plan: Improving this morning Patient last received Haldol yesterday afternoon Sitter still at bedside, will discontinue after psychiatry has evaluated PT/OT recommending SNF placement B12, Folate, Ammonia WNL Neurology also following, would recommend Seroquel if Psych agrees (2) Atrial fibrillation Current Visit: No Status: Chronic Assessment and Plan: Presented with A. fib with RVR - rate controlled now. Continue Eliquis TTE obtained 05/20: LVEF 45%, mild systolic dysfunction, no LV thrombus, no PFO, mild-moderate aortic regurgitation (3) Agitation Current Visit: Yes Status: Acute Assessment and Plan: Plan as above Likely secondary to delerium in setting of progressive dementia Appreciate psych evaluation (4) Colitis Current Visit: Yes Status: Acute Assessment and Plan: Patient not complaining of any GI symptoms He only received one dose of antibiotics and has no other signs of infection (5) Diabetes mellitus, type 2 Current Visit: Yes Status: Chronic Assessment and Plan: BG checks improving - continue bolus and SSI regimen (6) History of CVA (cerebrovascular accident) Current Visit: No Status: Acute - Time Spent with Patient Total time spent is greater than 50% in coordination of care (as documented) at patient's floor/unit and/or counseling patient: 25 - 35 minutes Plan of Care Discussed with: technical sales consultant Internal Medicine: Result - Labs CBC & Chem 7: 05/22/18 04:43 05/22/18 04:43 Labs: Short CBC 05/22/18 Range/Units 04:43 WBC 6.2 (4.3-11.1) K/mcL Hgb 14.9 (12.9-16.9) g/dL Hct 42.7 (37.5-50.1) % Plt Count 180 (140-400) K/mcL Neutrophils # 2.9 (1.6-8.9) K/mcL BMP 05/22/18 04:43 Sodium 138 Potassium 4.1 Chloride 106 Carbon Dioxide 23 BUN 30 H Creatinine 1.40 H Glucose 127 H Calcium 9.1 - ABG Interpretation ABG results: ABG ABG pH 7.40 pH Units (7.32-7.45) 05/20/18 04:40 ABG pCO2 38 mmHg (35-45) 05/20/18 04:40 ABG pO2 109 mmHg (85-104) H 05/20/18 04:40 ABG O2 Saturation 98 % (95-98) 05/20/18 04:40 PT/INR, D-dimer PT 12.1 Seconds (9.4-12.1) 05/17/18 10:51 Consult Discharge Plan - Plan [facility]errals: [facility] [Primary Care Provider] - <Cherrie Jay - Last Filed: 05/22/18 16:23> Hospitalist Progress Note - Encounter Date of Encounter: 05/22/18 - Exam Vitals: Temp Pulse Resp BP Pulse Ox 97.6 F 81 16 149/81 95 05/22/18 07:04 05/22/18 07:04 05/22/18 07:04 05/22/18 07:04 05/22/18 07:04 - Assessment and Plan (1) Metabolic encephalopathy Current Visit: Yes Status: Acute - Time Spent with Patient Total time spent is greater than 50% in coordination of care (as documented) at patient's floor/unit and/or counseling patient: Internal Medicine: Result - Labs CBC & Chem 7: 05/22/18 04:43 05/22/18 04:43 Labs: Short CBC 05/22/18 Range/Units 04:43 WBC 6.2 (4.3-11.1) K/mcL Hgb 14.9 (12.9-16.9) g/dL Hct 42.7 (37.5-50.1) % Plt Count 180 (140-400) K/mcL Neutrophils # 2.9 (1.6-8.9) K/mcL BMP 05/22/18 04:43 Sodium 138 Potassium 4.1 Chloride 106 Carbon Dioxide 23 BUN 30 H Creatinine 1.40 H Glucose 127 H Calcium 9.1 - ABG Interpretation ABG results: ABG ABG pH 7.40 pH Units (7.32-7.45) 05/20/18 04:40 ABG pCO2 38 mmHg (35-45) 05/20/18 04:40 ABG pO2 109 mmHg (85-104) H 05/20/18 04:40 ABG O2 Saturation 98 % (95-98) 05/20/18 04:40 PT/INR, D-dimer PT 12.1 Seconds (9.4-12.1) 05/17/18 10:51 - Attending Attestation I have seen and examined this patient independently. I have discussed with resident physician Dr. Jay regarding the management plan. Agree with the documentation. 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
[2018-05-22] MEDS: Aspirin Enteric Coated 81 MG Tablet PO SCH (10:01)
[2018-05-22] MEDS: Apixaban 5 MG TABLET PO SCH ×2 (10:01→20:52)
--- NOTE | 2018-05-22 17:47 | Consult Note ---
Date of Encounter: 05/22/18 Time of Encounter: 16:30 Assessment & Recommendation (1) Attention and concentration deficit following unspecified cerebrovascular disease Current visit: Yes Status: Acute History of Present Illness Patient: new to practice Requesting Physician: Vinny Robbins MD Reason for consult: possible hallucinations History of present illness: Mr. Subramanian is a 77 year old male The patient is a 77-year-old white male. The patient is a of the [email or web address]. He is followed in the [facility]. His primary care team is the [facility]. I have practiced in the [facility] for 25 years but I cannot recall ever having seen him in the last few years. Therefore he is new to me. Chief complaint I am not sure" History of present illness. The patient is seen and is significantly hard of hearing. He is not able to follow conversational speech at an interpersonal distance of greater than 2 feet away. Nonetheless the patient is able to respond to a raised voice of a closer distance. He is able to provide a good remote history. He served in the [email or web address] between the 60s and 70s he is able to tell me what his duties were and is able to tell me about his home living situation. The patient has had a long and complicated hospital course was able to identify this. Nonetheless the patient had difficulty with some concepts and answered some questions in a tangential manner. The patient has no prior psychiatric history and in fact no prior diagnosis of dementia based on my review. 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 He says he last worked somewhere between 1 and 2 years ago CC: Vinny Robbins MD Past Med Surg Social Fam HX - Past Medical History Medical history: atrial fibrillation, diabetes, hyperlipidemia, hypertension, renal disease - Past Psychiatric History Psychiatric history: Reports: no psych history Family psychiatric history: Unknown Family History of Suicide: Unknown - Social History Smoking Status: Former smoker Smokeless Tobacco Status: No Alcohol use: occasionally Drug use: none - Family History Father Family Member Ethnicity: Non- Living Status: Hx Family Cardiac Disorders: Yes (IN) Hx Family Cancer: Yes (Bladder) Mother Family Member Ethnicity: Non- Living Status: Hx Family Cancer: Yes (Colon) Brother Family Member Ethnicity: Non- Living Status: Still Living Hx Family Cancer: Yes (Unknown what type) Sister Family Member Ethnicity: Non- Living Status: Still Living Hx Family Cardiac Disorders: Yes (HD) Medications & Allergies Atorvastatin [Lipitor] 10 mg PO HS 06/05/17 [History] Lisinopril [Zestril] 2.5 mg PO DAILY 06/05/17 [History] Metoprolol [Lopressor] 25 mg PO BID 06/05/17 [History] Terazosin [Hytrin] 1 mg PO DAILY 06/05/17 [History] Apixaban [Eliquis] 5 mg PO BID 10/14/17 [History] Cyanocobalamin (Vitamin B-12) [Vitamin B12] 1,000 mcg PO DAILY 10/14/17 [History ] Insulin Glargine,Hum.rec.anlog [Lantus Solostar] 24 unit SQ HS 10/14/17 [History ] Cholecalciferol (Vitamin D3) [Vitamin D3] 1,000 mg PO DAILY 05/17/18 [History] Metformin HCl [Metformin HCl ER] 500 mg PO BID 05/17/18 [History] Naproxen Sodium [Naproxen Sodium] 550 mg PO BID 05/17/18 [History] Paroxetine HCl [Paxil] 20 mg PO DAILY 05/17/18 [History] 3 Allergy/AdvReac Type Severity Reaction Status Date / Time IV Contrast Allergy Anaphylaxis Uncoded 10/14/17 15:15 Review of Systems Psychiatric: Reports: visual hallucinations, confusion, difficulty concentrating Psychiatry Exam - Constitutional Vitals: Temp Pulse Resp BP Pulse Ox 97.6 F 81 16 149/81 95 05/22/18 07:04 05/22/18 07:04 05/22/18 07:04 05/22/18 07:04 05/22/18 07:04 General appearance: age & developmentally appropriate, well-nourished - Musculoskeletal Gait: slow Station: stooped Strength & Tone: mild weakness - Psychiatric Patient Orientation: Yes Person, Yes Time, Yes Place, Yes Circumstance Level of alertness: Alert Behavior: cooperative Psychomotor activity: Slowed Eye Contact: Maintains Eye Contact Mood Description: Euthymic/stable, Other Affect description: blunted Speech Volume: Normal Speech pattern: normal rate Language & Vocabulary: consistent with education Thought Process: Linear, Loose Associations, Disorganized, Perseveration, Confabulation Attention Span Ability: Unable to Sustain Attention Memory Description: Immediate Impaired, Remote Intact Patient Reliability: Questionable Historian Intelligence Estimate: Above [place] Judgment: Limited Insight: Minimal Results - Labs Labs: Laboratory Last Values WBC 6.2 K/mcL (4.3-11.1) 05/22/18 04:43 RBC 4.64 M/mcL (4.19-5.50) 05/22/18 04:43 Hgb 14.9 g/dL (12.9-16.9) 05/22/18 04:43 Hct 42.7 % (37.5-50.1) 05/22/18 04:43 MCV 92.0 fL (83.0-100.0) 05/22/18 04:43 MCH 32.1 pg (28.0-33.3) 05/22/18 04:43 MCHC 34.9 g/dL (31.6-35.5) 05/22/18 04:43 RDW 12.8 % (11.5-14.5) 05/22/18 04:43 Plt Count 180 K/mcL (140-400) 05/22/18 04:43 MPV 10.2 fL (9.4-12.4) 05/22/18 04:43 Immature Gran % 1.4 % (0-4) 05/22/18 04:43 Seg Neutrophils % 46.1 % 05/22/18 04:43 Lymphocytes % 38.5 % 05/22/18 04:43 Monocytes % 9.1 % 05/22/18 04:43 Eosinophils % 3.9 % 05/22/18 04:43 Basophils % 1.0 % 05/22/18 04:43 Neutrophils # 2.9 K/mcL (1.6-8.9) 05/22/18 04:43 Lymphocytes # 2.4 K/mcL (0.6-4.6) 05/22/18 04:43 Monocytes # 0.6 K/mcL (0.0-1.3) 05/22/18 04:43 Eosinophils # 0.2 K/mcL (0.0-0.6) 05/22/18 04:43 Basophils # 0.1 K/mcL (0.0-0.2) 05/22/18 04:43 ESR 19 mm/hr (0-10) H 05/17/18 18:05 PT 12.1 Seconds (9.4-12.1) 05/17/18 10:51 INR 1.1 05/17/18 10:51 APTT 29.8 Seconds (26.0-36.0) 05/17/18 10:51 Sample Site R Radial 05/20/18 04:40 ABG pH 7.40 pH Units (7.32-7.45) 05/20/18 04:40 ABG pCO2 38 mmHg (35-45) 05/20/18 04:40 ABG pO2 109 mmHg (85-104) H 05/20/18 04:40 ABG HCO3 23 mEq/L (21-27) 05/20/18 04:40 ABG Total CO2 25 mEq/L (20-26) 05/20/18 04:40 ABG O2 Saturation 98 % (95-98) 05/20/18 04:40 ABG Base Excess -1 mEq/L (-2 to 3) 05/20/18 04:40 Andrew Test Positive 05/20/18 04:40 VBG pH 7.32 pH Units (7.32-7.42) 05/17/18 11:11 VBG pCO2 50 mmHg (41-51) 05/17/18 11:11 VBG pO2 59 mmHg (25-50) H 05/17/18 11:11 VBG HCO3 26 mEq/L (21-27) 05/17/18 11:11 Respiration Rate 12 05/18/18 05:32 O2 Delivery Device Cannula 05/20/18 04:40 Blood Gas Modality ASSIST CONTROL 05/18/18 05:32 Inspired O2 2.5 (1-15=lpm ht30-108=%) 05/20/18 04:40 Tidal Volume 480 cc 05/18/18 05:32 PEEP 5 cm H2O 05/18/18 05:32 Sodium 138 mEq/L (136-145) 05/22/18 04:43 Potassium 4.1 mEq/L (3.5-5.1) 05/22/18 04:43 Chloride 106 mEq/L (98-107) 05/22/18 04:43 Carbon Dioxide 23 mEq/L (23-29) 05/22/18 04:43 BUN 30 mg/dL (8-23) H 05/22/18 04:43 Creatinine 1.40 mg/dL (0.70-1.30) H 05/22/18 04:43 Est GFR ( Amer) 60 (> 60) 05/22/18 04:43 Est GFR (Non-Af Amer) 49 (> 60) L 05/22/18 04:43 BUN/Creatinine Ratio 21 (6-26) 05/22/18 04:43 Glucose 127 mg/dL (70-105) H 05/22/18 04:43 POC Glucose 107 mg/dL (70-99) H 05/22/18 06:50 Calculated Osmolality 294 (280-300) 05/22/18 04:43 Lactic Acid 1.2 mmol/L (0.5-2.2) 05/17/18 23:30 Calcium 9.1 mg/dL (8.6-10.3) 05/22/18 04:43 Venous Ioniz Calcium 1.16 mmol/L (1.15-1.35) 05/18/18 04:25 Phosphorus 3.0 mg/dL (2.7-4.5) 05/18/18 04:10 Magnesium 1.9 mg/dL (1.6-2.6) 05/18/18 16:50 Total Bilirubin 1.0 mg/dL (0.3-1.0) 05/17/18 10:51 Direct Bilirubin 0.2 mg/dL (0.0-0.2) 05/17/18 10:51 Indirect Bilirubin 0.8 mg/dL (0.0-1.2) 05/17/18 10:51 AST 50 Units/L (13-39) H 05/17/18 10:51 ALT 41 Units/L (7-52) 05/17/18 10:51 Alkaline Phosphatase 98 Units/L (34-104) 05/17/18 10:51 Ammonia 33 mcmol/L (16-53) 05/22/18 04:43 Creatine Kinase 49 Units/L (30-223) 05/17/18 18:05 Troponin I < 0.03 ng/mL (< 0.04) 05/17/18 23:30 C-Reactive Protein 7 mg/L (Less than 10) 05/17/18 18:05 B-Natriuretic Peptide 223 pg/mL (Less than 100) H 05/17/18 10:51 Serum Total Protein 7.2 g/dL (6.4-8.9) 05/17/18 10:51 Albumin 3.7 g/dL (3.5-5.7) 05/17/18 10:51 Globulin 3.5 g/dL (2.4-3.5) 05/17/18 10:51 Albumin/Globulin Ratio 1.1 (1.1-2.2) 05/17/18 10:51 Lipase 31 Units/L (11-82) 05/17/18 10:51 Vitamin B12 627 pg/mL (250-1100) 05/22/18 04:43 Folate 13.3 ng/mL (3.0-16.0) 05/22/18 04:43 Beta-Hydroxybutyric Acd 0.12 mmol/L (0.02-0.27) 05/17/18 10:51 TSH 1.660 mcIU/mL (0.340-5.600) 05/17/18 18:05 Random Cortisol 11.4 mcg/dl 05/17/18 18:05 Urine Color Yellow (Yellow) 05/17/18 11:30 Urine Clarity Clear (Clear) 05/17/18 11:30 Urine pH 6.0 pH Units (5.0-8.0) 05/17/18 11:30 Ur Specific [place] 1.026 (1.010-1.025) H 05/17/18 11:30 Urine Protein >=300 mg/dL (Neg-Trace) H 05/17/18 11:30 Urine Glucose (UA) 500 mg/dL (Normal) H 05/17/18 11:30 Urine Ketones Negative mg/dL (Negative) 05/17/18 11:30 Urine Blood Negative (Negative) 05/17/18 11:30 Urine Nitrite Negative (Negative) 05/17/18 11:30 Urine Bilirubin Negative (Negative) 05/17/18 11:30 Urine Urobilinogen Normal mg/dL (Normal) 05/17/18 11:30 Ur Leukocyte Esterase Negative (Negative) 05/17/18 11:30 Urine Microscopic RBC 0-3 per hpf (0-3) 05/17/18 11:30 Urine Microscopic WBC 0-3 per hpf (0-3) 05/17/18 11:30 Ur Squamous Epith Cells Many per lpf (None-Few) H 05/17/18 11:30 Urine Bacteria None Seen per hpf (None-Few) 05/17/18 11:30 Hyaline Casts None Seen per lpf (None-Few) 05/17/18 11:30 Ur Culture Indicated? NO (NO) 05/17/18 11:30 Salicylates < 2.5 mg/dL (15.0-30.0) L 05/17/18 15:53 Urine Opiates Screen Negative ng/mL (Lufusi=762) 05/17/18 11:39 Acetaminophen < 10 mcg/mL (10-20) L 05/17/18 15:53 Ur Barbiturates Screen Negative ng/mL (Emicmg=362) 05/17/18 11:39 Ur Phencyclidine Scrn Negative ng/mL (Cutoff=25) 05/17/18 11:39 Ur Amphetamines Screen Negative ng/mL (Snsndy=2449) 05/17/18 11:39 U Benzodiazepines Scrn Negative ng/mL (Hhsqed=977) 05/17/18 11:39 Urine Cocaine Screen Negative ng/mL (Cutoff= 300) 05/17/18 11:39 U Marijuana (THC) Screen Negative ng/mL (Cutoff = 50) 05/17/18 11:39 Ur Drug Screen Interp See Below 05/17/18 11:39 Consult Discharge Plan - Plan [facility]errals: [facility] [Primary Care Provider] -
[2018-05-23] MEDS: Aspirin Enteric Coated 81 MG Tablet PO SCH (08:38)
[2018-05-23] MEDS: Apixaban 5 MG TABLET PO SCH ×2 (08:39→22:23)
[2018-05-23] MEDS: Insulin LISPRO 300 UNITS/3 ML VIAL SQ SCH ×4 (08:39→22:10)
--- NOTE | 2018-05-23 09:32 | Discharge Summary ---
<Sree Lynne R - Last Filed: 05/23/18 13:40> - NOTES TO OUTPATIENT PROVIDER Notes to Outpatient Provider: Neurology recommended a formal congnitive evaluation Orders not resulted at time of discharge: Pending orders 05/17/18 18:05 Culture,Sputum with Gram Stain [RM] Routine Date of Encounter: 05/23/18 Time of Encounter: 09:29 - Discharge Diagnosis (1) Acute encephalopathy Priority: Primary Status: Acute (2) Atrial fibrillation Priority: Secondary Status: Chronic Qualifiers: Atrial fibrillation type: paroxysmal Qualified Code(s): I48.0 - Paroxysmal atrial fibrillation (3) Agitation Priority: Secondary Status: Acute (4) Colitis Priority: Secondary Status: Acute (5) Diabetes mellitus, type 2 Priority: Secondary Status: Chronic Qualifiers: Diabetes mellitus product planner insulin use: without correction use Diabetes mellitus complication status: with kidney complications Diabetes mellitus complication detail: with chronic kidney disease Chronic kidney disease stage : stage 3 (moderate) Qualified Code(s): E11.22 - Type 2 diabetes mellitus with diabetic chronic kidney disease; N18.3 - Chronic kidney disease, stage 3 ( moderate) (6) History of CVA (cerebrovascular accident) Priority: Secondary Status: Acute Hospital course: Mr. Subramanian is a 77 year old male with PMH of hypertension, diabetes, A. fib, and CVA, admitted the hospital with acute encephalopathy. He was brought to the hospital after being found unresponsive at home. He was hypotensive, A. fib with RVR, and elective intubated requiring vasopressors. Sepsis work-up was negative - sputum culture with normal respiratory raymond. 1/2 blood culture positive with likely contaminant as it became positive after 5 days and during this time period the patient was afebrile with no leukocytosis or clinical signs of infection. Abd/pelvis did show possible colitis, but the clinical course did not correlate with colitis. Head CT negative. Labs unremarkable. He was extubated a few days later and has been stable out of the ICU. He recently was admitted with acute encephalopathy and had an MRI with remote infarcts and chronic small vessel disease. Echo showed no changes, no thrombus, and no evidence of PFO. Neurology evaluated the patient and does not think this was a new stroke. Etiology of initial symptoms likely related to dehydration. His brother reports that over the past several months he has progressively been declining and becoming increasingly confused at times. One episode of worsening confusion while admitted, with the patient ambulating the halls and acting agitated/aggressive. Since the incident he has been pleasant and cooperative. Neurology and psychiatry feel that he has undiagnosed dementia with periods of acute confusion. PT/OT recommended SNF placement. Discharge discussed with: patient - Time Spent with Patient Total time spent providing and/or coordinating discharge services: - Discharge Medications Home Medications: Atorvastatin [Lipitor] 10 mg PO HS 06/05/17 [History] Lisinopril [Zestril] 2.5 mg PO DAILY 06/05/17 [History] Metoprolol [Lopressor] 25 mg PO BID 06/05/17 [History] Terazosin [Hytrin] 1 mg PO DAILY 06/05/17 [History] Apixaban [Eliquis] 5 mg PO BID 10/14/17 [History] Cyanocobalamin (Vitamin B-12) [Vitamin B12] 1,000 mcg PO DAILY 10/14/17 [History ] Insulin Glargine,Hum.rec.anlog [Lantus Solostar] 24 unit SQ HS 10/14/17 [History ] Cholecalciferol (Vitamin D3) [Vitamin D3] 1,000 mg PO DAILY 05/17/18 [History] Metformin HCl [Metformin HCl ER] 500 mg PO BID 05/17/18 [History] Naproxen Sodium 550 mg PO BID 05/17/18 [History] Paroxetine HCl [Paxil] 20 mg PO DAILY 05/17/18 [History] Aspirin Enteric Coated [Aspirin EC] 81 mg PO DAILY tablet. 05/23/18 [Rx] Allergies/Adverse Reactions: 3 Allergy/AdvReac Type Severity Reaction Status Date / Time IV Contrast Allergy Anaphylaxis Uncoded 10/14/17 15:15 Date of admission: 05/17/18 14:17 [facility] care physician: [facility] Consults: 05/19/18 08:11 PT [Consult to Physical Therapy] [CONS] Routine Comment: Evaluate, develop and implement POC Reason for Consult: eval and treat Does patient have active BEDREST order?: No Is patient medically & hemodynamically stable?: Yes Patient assessed for mobility or mobilized this visit?: No 05/19/18 08:17 Consult to Neurology [CONS] Routine Consulting Provider: Neu[facility] Reason for Consult: encephalopathy Call Completed: Yes 05/20/18 08:32 Consult to Wet Milling Wheel Operator [CONS] Routine Reason for SW Consult: possible ECF placement 05/21/18 16:56 Consult to Psychiatry [CONS] Routine Consulting Provider: Maddison Marmolejo Reason consult: Agitation Confusion Other reason and/or additional details: Pt is not making sensible statements at times, possible hallucinations Time Notified: 16:57 Call Completed: Yes Discharging clinician: Sree Lynne Anticipated date of discharge: 05/23/18 - Constitutional Vitals: Temp Pulse Resp BP Pulse Ox 98.3 F 78 18 147/69 98 05/23/18 07:22 05/23/18 07:22 05/23/18 07:22 05/23/18 07:22 05/23/18 07:22 - Other Additional findings: GEN: No acute distress, A&O3 HEAD: Atraumatic, normocephalic EYES: Pupils symmetric, sclerae white, conjunctivae pink HEART: irregularly irregular, normal S1 and S2, no murmurs LUNGS: Clear to auscultation bilaterally, no wheezes, rhonchi, or crackles ABD: Soft, nontender, nondistended, bowel sounds present EXT: No edema noted, pulses 2/4 NEURO: No focal deficits, cooperative with exam - Patient Status Disposition: Transfer SNF Condition: Good Functional capacity at discharge: uses cane/walker Overall status at discharge: patient is progressing back to baseline - Discharge Instructions [facility] Up With: [facility] [Primary Care Provider] - - Diet and Activity Activity: as per physical therapy Diet: advance to your usual diet <Cherrie Jay - Last Filed: 05/23/18 15:40> Date of Encounter: 05/23/18 - Discharge Diagnosis (1) Metabolic encephalopathy Status: Acute Hospital course: Mr. Subramanian is a 77 year old male - Time Spent with Patient Total time spent providing and/or coordinating discharge services: Date of admission: 05/17/18 14:17 Primary care physician: [facility] Consults: 05/19/18 08:11 PT [Consult to Physical Therapy] [CONS] Routine Comment: Evaluate, develop and implement POC Reason for Consult: eval and treat Does patient have active BEDREST order?: No Is patient medically & hemodynamically stable?: Yes Patient assessed for mobility or mobilized this visit?: No 05/19/18 08:17 Consult to Neurology [CONS] Routine Consulting Provider: [facility] Reason for Consult: encephalopathy Call Completed: Yes 05/20/18 08:32 Consult to Wet Milling Wheel Operator [CONS] Routine Reason for SW Consult: possible ECF placement 05/21/18 16:56 Consult to Psychiatry [CONS] Routine Consulting Provider: Psychiatry [facility] Reason consult: Agitation Confusion Other reason and/or additional details: Pt is not making sensible statements at times, possible hallucinations Time Notified: 16:57 Call Completed: Yes - Constitutional Vitals: Temp Pulse Resp BP Pulse Ox 97.6 F 64 18 114/68 97 05/23/18 11:03 05/23/18 11:03 05/23/18 11:03 05/23/18 11:03 05/23/18 11:03 - Attending Attestation I have seen and examined this patient independently. I have discussed with resident physician Dr. Lynne regarding the discharge and the follow-up plan. Agree with the documentation.
--- NOTE | 2018-05-23 14:27 | Physician Discharge Referral ---
ExtendedCare Referral Info Transfer To: [facility] Provider in Charge after Transfer: Other ([facility] physician) - Diagnosis (1) Acute encephalopathy Priority: Primary Status: Acute (2) Atrial fibrillation Priority: Secondary Status: Chronic (3) Agitation Priority: Secondary Status: Acute (4) Colitis Priority: Secondary Status: Acute (5) Diabetes mellitus, type 2 Priority: Secondary Status: Chronic (6) History of CVA (cerebrovascular accident) Priority: Secondary Status: Acute - Transfer Medications Home Medications: Atorvastatin [Lipitor] 10 mg PO HS 06/05/17 [History] Lisinopril [Zestril] 2.5 mg PO DAILY 06/05/17 [History] Metoprolol [Lopressor] 25 mg PO BID 06/05/17 [History] Terazosin [Hytrin] 1 mg PO DAILY 06/05/17 [History] Apixaban [Eliquis] 5 mg PO BID 10/14/17 [History] Cyanocobalamin (Vitamin B-12) [Vitamin B12] 1,000 mcg PO DAILY 10/14/17 [History ] Insulin Glargine,Hum.rec.anlog [Lantus Solostar] 24 unit SQ HS 10/14/17 [History ] Cholecalciferol (Vitamin D3) [Vitamin D3] 1,000 mg PO DAILY 05/17/18 [History] Metformin HCl [Metformin HCl ER] 500 mg PO BID 05/17/18 [History] Naproxen Sodium 550 mg PO BID 05/17/18 [History] Paroxetine HCl [Paxil] 20 mg PO DAILY 05/17/18 [History] Aspirin Enteric Coated [Aspirin EC] 81 mg PO DAILY tablet. 05/23/18 [Rx] Allergies/Adverse Reactions: 3 Allergy/AdvReac Type Severity Reaction Status Date / Time IV Contrast Allergy Anaphylaxis Uncoded 10/14/17 15:15 - Respiratory Orders Smoking Cessation: Smoking cessation has been advised. For more information, call the [place] Tobacco Quit Line at 0-191-HLXW-NOW. - Rehabiliation Orders Rehab Potential: Fair CERTIFICATION: I certify that the transfer of the above named patient to an Extended Care Facility is necessary for the continuing treatment of the diagnosis listed. The above information is true and accurate reflection of patient's current condition. Confidential - Redisclosure prohibited without a patient's written consent.
[2018-05-24] MEDS: Insulin LISPRO 300 UNITS/3 ML VIAL SQ SCH ×2 (08:43→12:51)
[2018-05-24] MEDS: Apixaban 5 MG TABLET PO SCH (08:50)
[2018-05-24] MEDS: Aspirin Enteric Coated 81 MG Tablet PO SCH (08:50)
[2018-05-24 11:25] VITALS: BP 128/75
== END 2018-05-24 13:28 | DRG 391 ==
LOC: EMEROO 09:55 → ICNU 14:17 → 2ANU 05-19 13:05
PROVIDERS: ADMIT Internal Medicine; ATTEND Internal Medicine Hospice and Palliative Medicine

== ENCOUNTER 2018-08-09 14:08 | Observation (INO) ==
--- NOTE | 2018-08-09 14:35 | Emergency Department Note ---
Disposition Clinical Impression: Altered level of consciousness Chronic kidney disease (CKD) Qualifiers: Chronic kidney disease stage: unspecified stage Qualified Code(s): N18.9 - Chronic kidney disease, unspecified Disposition: Admitted As Inpatient Condition: Fair Forms: ED Satisfaction Letter General Adult HPI - General Chief complaint: ED Altered Mental Status Stated complaint: unresponsive Source: EMS Limitations: altered mental status Nursing Notes Reviewed: Yes Vital Signs Reviewed: Yes - History of Present Illness HPI Narrative: I did see the patient and spoke with the nurses and also we did speak with the custodial. The patient is unable to give any history at this time secondary to altered level of consciousness. The [facility] care facility says that he was speaking and interacting normally this morning and then he became unresponsive and he had an oxygen saturation of 88% and a blood sugar in the 90s and they transported him here. Pain Scale: 0 - Related Data Home Medications Medication Instructions Recorded Confirmed Atorvastatin [Lipitor] 10 mg PO HS 06/05/17 05/17/18 Lisinopril [Zestril] 2.5 mg PO DAILY 06/05/17 05/17/18 Metoprolol [Lopressor] 25 mg PO BID 06/05/17 05/17/18 Terazosin [Hytrin] 1 mg PO DAILY 06/05/17 05/17/18 Apixaban [Eliquis] 5 mg PO BID 10/14/17 05/17/18 Cyanocobalamin (Vitamin B-12) 1,000 mcg PO DAILY 10/14/17 05/17/18 [Vitamin B12] Insulin Glargine,Hum.rec.anlog 24 unit SQ HS 10/14/17 05/17/18 [Lantus Solostar] Cholecalciferol (Vitamin D3) 1,000 mg PO DAILY 05/17/18 05/17/18 [Vitamin D3] Metformin HCl [Metformin HCl ER] 500 mg PO BID 05/17/18 05/17/18 Naproxen Sodium 550 mg PO BID 05/17/18 05/17/18 Paroxetine HCl [Paxil] 20 mg PO DAILY 05/17/18 05/17/18 Previous Rx's Medication Instructions Recorded Aspirin Enteric Coated [Aspirin EC] 81 mg PO DAILY tablet. 05/23/18 Allergies Allergy/AdvReac Type Severity Reaction Status Date / Time IV Contrast Allergy Anaphylaxis Uncoded 10/14/17 15:15 Limitations: ROS unobtainable due to patients medical condition Past Medical History - Past Medical History Medical history: Reports: atrial fibrillation, diabetes, hyperlipidemia, hypertension, renal disease Psychiatric history: Reports: no psych history - Social History Smoking Status: Former smoker Smokeless Tobacco Status: No Alcohol use: Reports: occasionally Drug use: Reports: none Physical Exam CONSTITUTIONAL: Unresponsive to verbal stimuli, does open his eyes half way, pupils are equally round, color is good, no respiratory distress HEAD: Normocephalic; atraumatic. EYES: PERRL, no scleral icterus. NOSE: The nose is normal in appearance without rhinorrhea RESP: Normal chest excursion with respiration; breath sounds clear and equal bilaterally; no wheezes, rhonchi, or rales CARD: Regular rhythm, without murmurs, rub or gallop ABD: Non-distended; non-tender, soft,without rigidity, rebound or guarding SKIN: Normal for age and race; warm and dry; no apparent lesions EXTREMITIES: Pulses are 2 plus and equal times 4 extremities, no peripheral sivan a or calf muscle pain. - General Limitations: altered mental status General appearance: in no apparent distress Course Vital Signs Temperature 97.5 F L 08/09/18 14:20 Pulse Rate 75 08/09/18 14:20 Respiratory Rate 23 08/09/18 14:20 Blood Pressure 132/73 08/09/18 14:20 O2 Sat by Pulse Oximetry 98 08/09/18 14:20 Temperature 97.5 F L 08/09/18 14:20 Pulse Rate 65 08/09/18 15:47 Respiratory Rate 22 08/09/18 15:47 Blood Pressure 133/87 08/09/18 15:47 O2 Sat by Pulse Oximetry 96 08/09/18 15:47 Oxygen Delivery Oxygen Delivery Nasal Cannula Medical Decision Making - [facility] Narrative Medical decision making narrative: Labs are ordered, CT the brain as the patient is anticoagulated so this could be from head bleed, chest x-ray, urine testing, results pending 1436 I did review the EKG showing atrial fibrillation with a rate of 75 without acute ischemic change 1439 Did speak with the hospitalist who is except to the patient for admission. Chest x-ray negative. Labs reviewed with evidence of chronic renal failure and unchanged creatinine relative to previous levels. Head CT is pending and I will follow-up this result. Patient now is more alert however still is confused even to the point that he does not know his name. Cranial nerves III12 within normal limits, finger to nose testing is normal, there is no drift of the upper or lower extremities, no focal neurologic deficits, no facial droop - Medical Records Medical records reviewed: Yes I reviewed the patient's medical records. - Lab Data Lab results reviewed: Yes I reviewed the patient's lab results. Result diagrams: 08/09/18 14:42 08/09/18 14:42 Lab Results 08/09/18 08/09/18 08/09/18 Range/Units 14:25 14:42 14:42 WBC 7.5 (4.3-11.1) K/mcL RBC 4.85 (4.19-5.50) M/mcL Hgb 15.2 (12.9-16.9) g/dL Hct 45.6 (37.5-50.1) % MCV 94.0 (83.0-100.0) fL MCH 31.3 (28.0-33.3) pg MCHC 33.3 (31.6-35.5) g/dL RDW 12.8 (11.5-14.5) % Plt Count 168 (140-400) K/mcL MPV 10.3 (9.4-12.4) fL Immature Gran % 1.1 (0-4) % Seg Neutrophils % 52.7 % Lymphocytes % 34.1 % Monocytes % 8.8 % Eosinophils % 2.5 % Basophils % 0.8 % Neutrophils # 4.0 (1.6-8.9) K/mcL Lymphocytes # 2.6 (0.6-4.6) K/mcL Monocytes # 0.7 (0.0-1.3) K/mcL Eosinophils # 0.2 (0.0-0.6) K/mcL Basophils # 0.1 (0.0-0.2) K/mcL Sodium 138 (136-145) mEq/L Potassium 4.5 (3.5-5.1) mEq/L Chloride 107 (98-107) mEq/L Carbon Dioxide 24 (23-29) mEq/L BUN 41 H (8-23) mg/dL Creatinine 1.48 H (0.70-1.30) mg/dL Est GFR ( Amer) 56 L (> 60) Est GFR (Non-Af Amer) 46 L (> 60) BUN/Creatinine Ratio 28 H (6-26) Glucose 112 H (70-105) mg/dL POC Glucose 102 H (70-99) mg/dL Calculated Osmolality 297 (280-300) Calcium 9.9 (8.6-10.3) mg/dL Total Bilirubin 0.4 (0.3-1.0) mg/dL Direct Bilirubin 0.0 (0.0-0.2) mg/dL Indirect Bilirubin 0.4 (0.0-1.2) mg/dL AST 22 (13-39) Units/L ALT 23 (7-52) Units/L Alkaline Phosphatase 88 (34-104) Units/L Troponin I < 0.03 (< 0.04) ng/mL Serum Total Protein 7.3 (6.4-8.9) g/dL Albumin 3.8 (3.5-5.7) g/dL Globulin 3.5 (2.4-3.5) g/dL Albumin/Globulin Ratio 1.1 (1.1-2.2) Urine Color (Yellow) Urine Clarity (Clear) Urine pH (5.0-8.0) pH Units Ur Specific [place] (1.010-1.025) Urine Protein (Neg-Trace) mg/dL Urine Glucose (UA) (Normal) mg/dL Urine Ketones (Negative) mg/dL Urine Blood (Negative) Urine Nitrite (Negative) Urine Bilirubin (Negative) Urine Urobilinogen (Normal) mg/dL Ur Leukocyte Esterase (Negative) 08/09/18 Range/Units 14:59 WBC (4.3-11.1) K/mcL RBC (4.19-5.50) M/mcL Hgb (12.9-16.9) g/dL Hct (37.5-50.1) % MCV (83.0-100.0) fL MCH (28.0-33.3) pg MCHC (31.6-35.5) g/dL RDW (11.5-14.5) % Plt Count (140-400) K/mcL MPV (9.4-12.4) fL Immature Gran % (0-4) % Seg Neutrophils % % Lymphocytes % % Monocytes % % Eosinophils % % Basophils % % Neutrophils # (1.6-8.9) K/mcL Lymphocytes # (0.6-4.6) K/mcL Monocytes # (0.0-1.3) K/mcL Eosinophils # (0.0-0.6) K/mcL Basophils # (0.0-0.2) K/mcL Sodium (136-145) mEq/L Potassium (3.5-5.1) mEq/L Chloride (98-107) mEq/L Carbon Dioxide (23-29) mEq/L BUN (8-23) mg/dL Creatinine (0.70-1.30) mg/dL Est GFR ( Amer) (> 60) Est GFR (Non-Af Amer) (> 60) BUN/Creatinine Ratio (6-26) Glucose (70-105) mg/dL POC Glucose (70-99) mg/dL Calculated Osmolality (280-300) Calcium (8.6-10.3) mg/dL Total Bilirubin (0.3-1.0) mg/dL Direct Bilirubin (0.0-0.2) mg/dL Indirect Bilirubin (0.0-1.2) mg/dL AST (13-39) Units/L ALT (7-52) Units/L Alkaline Phosphatase (34-104) Units/L Troponin I (< 0.04) ng/mL Serum Total Protein (6.4-8.9) g/dL Albumin (3.5-5.7) g/dL Globulin (2.4-3.5) g/dL Albumin/Globulin Ratio (1.1-2.2) Urine Color Yellow (Yellow) Urine Clarity Clear (Clear) Urine pH 7.0 (5.0-8.0) pH Units Ur Specific [place] 1.019 (1.010-1.025) Urine Protein 100 H (Neg-Trace) mg/dL Urine Glucose (UA) Normal (Normal) mg/dL Urine Ketones Negative (Negative) mg/dL Urine Blood Negative (Negative) Urine Nitrite Negative (Negative) Urine Bilirubin Negative (Negative) Urine Urobilinogen Normal (Normal) mg/dL Ur Leukocyte Esterase Negative (Negative) - Radiology Data Radiology results reviewed: Yes I reviewed the patient's radiology results.
[2018-08-09 15:03] LABS: Basophils # 0.1 K/mcL (0.0-0.2); Basophils % 0.8 %; Eosinophils # 0.2 K/mcL (0.0-0.6); Eosinophils % 2.5 %; Hematocrit 45.6 % (37.5-50.1); Hemoglobin 15.2 g/dL (12.9-16.9); Immature Granulocytes % 1.1 % (0-4); Lymphocytes # 2.6 K/mcL (0.6-4.6); Lymphocytes % 34.1 %; Mean Corpuscular HGB Conc 33.3 g/dL (31.6-35.5); Mean Corpuscular Hemoglobin 31.3 pg (28.0-33.3); Mean Platelet Volume 10.3 fL (9.4-12.4); Monocytes # 0.7 K/mcL (0.0-1.3); Monocytes % 8.8 %; Platelet Count 168 K/mcL (140-400); Red Blood Count 4.85 M/mcL (4.19-5.50); Red Cell Distribution Width 12.8 % (11.5-14.5); Segmented Neutrophils % 52.7 %
[2018-08-09 15:09] LABS: Bilirubin,Urine Negative (Negative); Blood,Urine Negative (Negative); Clarity,Urine Clear (Clear); Color,Urine Yellow (Yellow); Glucose,Urine (UA) Normal (Normal); Ketones,Urine Negative (Negative); Leukocyte Esterase,Urine Negative (Negative); Nitrite,Urine Negative (Negative); Protein,Urine 100 mg/dL (Neg-Trace); Specific Gravity,Urine 1.019 (1.010-1.025); Urobilinogen,Urine Normal (Normal)
[2018-08-09 15:14] LABS: Troponin I < 0.03 ng/mL (< 0.04)
[2018-08-09 15:15] LABS: Alanine Aminotransferase 23 Units/L (7-52); Albumin 3.8 g/dL (3.5-5.7); Albumin/Globulin Ratio 1.1 (1.1-2.2); Alkaline Phosphatase 88 Units/L (34-104); Aspartate Amino Transferase 22 Units/L (13-39); BUN/Creatinine Ratio 28 (6-26); Bilirubin,Indirect 0.4 mg/dL (0.0-1.2); Bilirubin,Total 0.4 mg/dL (0.3-1.0); Blood Urea Nitrogen 41 mg/dL (8-23); Calcium 9.9 mg/dL (8.6-10.3); Carbon Dioxide 24 mEq/L (23-29); Chloride 107 mEq/L (98-107); Globulin 3.5 g/dL (2.4-3.5); Glucose 112 mg/dL (70-105); Osmolality,Calculated 297 (280-300); Potassium 4.5 mEq/L (3.5-5.1); Sodium 138 mEq/L (136-145); Total Protein 7.3 g/dL (6.4-8.9); eGFR For Non-African Americans 46 (> 60)
[2018-08-09 16:00] LABS: WBC,Urine 0-3 per hpf (0-3)
[2018-08-09 16:25] LABS: Bacteria,Urine None Seen per hpf (None-Few); Hyaline Casts,Urine None Seen per lpf (None-Few); Squamous Epithelial Cell,Urine Many per lpf (None-Few)
--- NOTE | 2018-08-09 17:24 | Internal Med History&Physical ---
Date of Encounter: 08/09/18 Time of Encounter: 17:24 Internal Medicine - H&P: HPI Chief complaint: send from snf Admitted From: Long-term Nursing Facility Plans for Post Hospital Care: Transfer Long-Term Facility History of present illness: Mr. Subramanian is a 77 year old male was sent from snf to the ER for altered mental status. Patient not able to provide any history. History obtained from previous charts and ER notes. Patient was noted to be interacting normally this morning at the extended care facility however later became unresponsive with reportedly oxygen saturation of 88% and blood sugar in 90s and was sent to the ER. Unclear whether patient received any intervention before coming to the ER. Patient had a CT head for altered mental status and to rule out bleed given he is on anticoagulants . It showed chronic ischemic changes with remote left cerebellar occipital and thalamic infarcts. Chest x-ray was unremarkable. EKG showed atrial fibrillation with rate controlled without any acute changes. Laboratory data remarkable for chronic kidney disease with creatinine at [facility]. Sugar levels were 102. Patient did not receive any intervention in ER. Admission was requested due to altered mental status. On interview patient was sleeping but easily arousable. However patient confused and likely with dementia and could not offer any complaints or any history. He is able to follow simple commands and follow gestures. Does not know why he is in the hospital and thinks he is at his home. Not agitated. No level history could be obtained. Past Med Surg Social Fam HX - Past Medical History Attestation: Yes The following information was validated with the patient. Medical history: atrial fibrillation, CVA, diabetes, hyperlipidemia, hypertension, renal disease Additional medical history: Past medical history could not be obtained from patient. Mentioned based on previous records Psychiatric history: no psych history - Past Surgical History Additional surgical history: Patient could not offer any history. - Social History Smoking Status: Former smoker Smokeless Tobacco Status: No Alcohol use: occasionally Drug use: none Occupational status: unemployed Additional social history: Patient could not offer any social history. Based on previous records - Family History Father Family Member Ethnicity: Non- Living Status: Hx Family Cardiac Disorders: Yes ([place]) Hx Family Cancer: Yes (Bladder) Mother Family Member Ethnicity: Non- Living Status: Hx Family Cancer: Yes (Colon) Brother Family Member Ethnicity: Non- Living Status: Still Living Hx Family Cancer: Yes (Unknown what type) Sister Family Member Ethnicity: Non- Living Status: Still Living Hx Family Cardiac Disorders: Yes (HD) - Additional Family History Additional family history: Above history based on previous records. Patient currently cannot confirm family history. Internal Medicine - H&P: Meds Atorvastatin [Lipitor] 10 mg PO HS 06/05/17 [History] Lisinopril [Zestril] 2.5 mg PO DAILY 06/05/17 [History] Metoprolol [Lopressor] 25 mg PO BID 06/05/17 [History] Terazosin [Hytrin] 1 mg PO DAILY 06/05/17 [History] Apixaban [Eliquis] 5 mg PO BID 10/14/17 [History] Cyanocobalamin (Vitamin B-12) [Vitamin B12] 1,000 mcg PO DAILY 10/14/17 [Histor y] Insulin Glargine,Hum.rec.anlog [Lantus Solostar] 24 unit SQ HS 10/14/17 [History] Cholecalciferol (Vitamin D3) [Vitamin D3] 1,000 mg PO DAILY 05/17/18 [History] Metformin HCl [Metformin HCl ER] 500 mg PO BID 05/17/18 [History] Naproxen Sodium 550 mg PO BID 05/17/18 [History] Paroxetine HCl [Paxil] 20 mg PO DAILY 05/17/18 [History] Aspirin Enteric Coated [Aspirin EC] 81 mg PO DAILY tablet. 05/23/18 [Rx] Allergy/AdvReac Type Severity Reaction Status Date / Time IV Contrast Allergy Anaphylaxis Uncoded 10/14/17 15:15 All Systems PM: Limited review of systems given patient could not reliably answer questions - Constitutional Vitals: Temp Pulse Resp BP Pulse Ox 97.5 F L 65 22 133/87 96 08/09/18 14:20 08/09/18 15:47 08/09/18 15:47 08/09/18 15:47 08/09/18 15:47 General appearance: Present: A&O X 0, no acute distress Exam: Constitutional: Vitals as noted. Conversant but confused. No Apparent Distress. No obvious deformities. Obese Eyes : Sclera white, conjunctiva clear, no lid lag, PEARLA. ENT : Grossly normal hearing. Oropharyngeal exam unremarkable. Moist mucus membranes. No JVD, no cervical lymphadenopathy. no thyromegaly or mass. Respiratory : Clear to auscultation bilaterally. No accessory muscle use, rales, rhonchi or wheezes Cardiovascular : Irregular, +S1, +S2, no murmur, gallop, rubs. No chest wall tenderness GI/Abdominal : Soft, Non-tender, mildly distended, Obese, normal bowel sounds, soft, no peritoneal signs. no orgenomegaly or mass appreciated. Musculoskeletal: no deformity noted. no edema or cyanosis. warm extremities, pulses palpable and symmetrical in UE/LE. no calf tenderness. Neurological: AO X0, CN II-XII intact, 5/5 in UE and LE. Cannot reliably confirm sensory deficits. Following commands. Did not assess gait Skin: No skin rash, lesions or ulcers noted. Pych: Couldn't recollect his full name. Confused. Does not appear to have h allucination. Memory impaired. Judgement not intact. Internal Med - H&P Results - Labs CBC & Chem 7: 08/09/18 14:42 08/09/18 14:42 Labs: Short CBC 08/09/18 Range/Units 14:42 WBC 7.5 (4.3-11.1) K/mcL Hgb 15.2 (12.9-16.9) g/dL Hct 45.6 (37.5-50.1) % Plt Count 168 (140-400) K/mcL Neutrophils # 4.0 (1.6-8.9) K/mcL BMP 08/09/18 14:42 Sodium 138 Potassium 4.5 Chloride 107 Carbon Dioxide 24 BUN 41 H Creatinine 1.48 H Glucose 112 H Calcium 9.9 Cardiac Enzymes 08/09/18 Range/Units 14:42 Troponin I < 0.03 (< 0.04) ng/mL Liver Function 08/09/18 Range/Units 14:42 Total Bilirubin 0.4 (0.3-1.0) mg/dL Direct Bilirubin 0.0 (0.0-0.2) mg/dL AST 22 (13-39) Units/L ALT 23 (7-52) Units/L Alkaline Phosphatase 88 (34-104) Units/L Albumin 3.8 (3.5-5.7) g/dL Urine 08/09/18 Range/Units 14:59 Urine Color Yellow (Yellow) Urine Clarity Clear (Clear) Urine pH 7.0 (5.0-8.0) pH Units Ur Specific [place] 1.019 (1.010-1.025) Urine Protein 100 H (Neg-Trace) mg/dL Urine Glucose (UA) Normal (Normal) mg/dL - Impressions ITS Impressions Chest X-Ray 08/09/18 14:28 IMPRESSION: No acute abnormality. D/ / Costa Smith MD / Costa Smith MD Interpreting Provider: Costa Smith MD Head CT 08/09/18 14:29 IMPRESSION: Chronic ischemic changes as above including remote left cerebellar, left occipital and left thalamic infarcts. No acute intracranial abnormality. Air-fluid level in the left maxillary sinus similar to the prior study. D/ / Silverio Choudhury MD / Silverio Choudhury MD Interpreting Provider: Silverio Choudhury MD - Assessment and plan (1) Altered mental status Current Visit: No Status: Acute Assessment and plan: - Patient still confused however no focal signs present on physical examination. - Had recent workup in May after he recovered from hypotension. MRI showed remote infarcts and small vessel disease. - Had neurological evaluation where he was deemed to have possible underlying dementia. B12, folate normal at that time - Echo done 05/20/18 with EF of 45, mild LV systolic dysfunction and intermediate diastolic dysfunction. - UA unremarkable, chest x-ray and head CT unremarkable today - Altered mental status appeared possibly due to hypoglycemia on top of underlying dementia and cognitive deficits Plan - Unclear exact reason of unresponsiveness at snf. - Currently alert awake but confused. Likely has significant underlying cognitive deficit and dementia - Also possible had some component of hypoglycemia given that he appears to be on insulin. Currently saturating well on room air - Currently appears to be back to baseline based on previous records - We will monitor patient on telemetry for arrhythmias - Monitor sugar every 6 hours - Obtain swallow evaluation - Does not appear to have significant electrolyte abnormalities causing AMS. - Continue aspirin Qualifiers: Altered mental status type: disorientation Qualified Code(s): R41.0 - Disorientation, unspecified (2) Atrial fibrillation Current Visit: No Status: Chronic Assessment and plan: - Continue metoprolol 25 twice a day and Excedrin 5 twice a day - Currently rate control. Monitor on telemetry Qualifiers: Qualified Code(s): I48.2 - Chronic atrial fibrillation (3) Chronic kidney disease (CKD) Current Visit: Yes Status: Acute Assessment and plan: - Currently appears to be at baseline - Continue lisinopril Qualifiers: Chronic kidney disease stage: unspecified stage Qualified Code(s): N18.9 - Chronic kidney disease, unspecified (4) History of CVA (cerebrovascular accident) Current Visit: No Status: Acute (5) Diabetes mellitus, type 2 Current Visit: No Status: Chronic Assessment and plan: - Monitor Accu-Cheks every 6 hours - We will do ACHS if no problem swallowing - We will control with 10 of long-acting and sliding scale insulin - Hold metformin given CKD Qualifiers: 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 Diabetes mellitus complication status: with kidney complications Diabetes mellitus complication detail: with chronic kidney disease Chronic kidney disease stage: stage 3 (moderate) Qualified Code(s): E11.22 - Type 2 diabetes mellitus with diabetic chronic kidney disease; N18.3 - Chronic kidney disease, stage 3 (moderate) (6) Essential hypertension Current Visit: No Status: Chronic Assessment and plan: - Continue lisinopril and metoprolol - Currently stable - Time Spent With Patient Total time spent is greater than 50% in coordination of care (as documented) at patient's floor/unit and/or counseling patient:
[2018-08-09] MEDS: Insulin LISPRO 300 UNITS/3 ML VIAL SQ SCH (18:26)
[2018-08-09] MEDS: Apixaban 5 MG TABLET PO SCH (20:38)
[2018-08-09] MEDS ORDERED: Insulin DETEMIR 100 UNIT/ML X5UNITS SQ SCH (21:00)
[2018-08-10 04:25] LABS: Basophils # 0.1 K/mcL (0.0-0.2); Basophils % 0.8 %; Eosinophils # 0.2 K/mcL (0.0-0.6); Hematocrit 45.8 % (37.5-50.1); Hemoglobin 15.7 g/dL (12.9-16.9); Lymphocytes # 2.4 K/mcL (0.6-4.6); Lymphocytes % 25.5 %; Mean Corpuscular HGB Conc 34.3 g/dL (31.6-35.5); Mean Corpuscular Hemoglobin 31.5 pg (28.0-33.3); Mean Corpuscular Volume 91.8 fL (83.0-100.0); Monocytes # 0.6 K/mcL (0.0-1.3); Monocytes % 6.8 %; Neutrophils # 5.9 K/mcL (1.6-8.9); Platelet Count 176 K/mcL (140-400); Red Blood Count 4.99 M/mcL (4.19-5.50); Red Cell Distribution Width 13.2 % (11.5-14.5); Segmented Neutrophils % 63.9 %
[2018-08-10 04:50] LABS: Calcium 9.8 mg/dL (8.6-10.3); Potassium 4.4 mEq/L (3.5-5.1)
[2018-08-10] MEDS: Insulin LISPRO 300 UNITS/3 ML VIAL SQ SCH (08:11)
[2018-08-10] MEDS: Apixaban 5 MG TABLET PO SCH (08:16)
[2018-08-10] MEDS ORDERED: Aspirin Enteric Coated 81 MG Tablet PO SCH (09:00)
[2018-08-10 11:24] VITALS: BP 124/67
--- NOTE | 2018-08-10 11:51 | Discharge Summary ---
- NOTES TO OUTPATIENT PROVIDER Notes to Outpatient Provider: Need to address his diabetes medication given CKD. Insulin regimen will be decreased given possible component of hypoglycemia causing AMS. Follow blood sugar levels and adjust appropriately. Orders not resulted at time of discharge: Pending orders 08/09/18 14:28 ECG 12 lead ECG [ECG] Stat Date of Encounter: 08/10/18 Time of Encounter: 11:50 - Discharge Diagnosis (1) Altered mental status Priority: Primary Status: Acute Qualifiers: Altered mental status type: disorientation Qualified Code(s): R41.0 - Disorientation, unspecified (2) Atrial fibrillation Priority: Secondary Status: Chronic Qualifiers: Qualified Code(s): I48.2 - Chronic atrial fibrillation (3) Chronic kidney disease (CKD) Priority: Secondary Status: Acute Qualifiers: Chronic kidney disease stage: unspecified stage Qualified Code(s): N18.9 - Chronic kidney disease, unspecified (4) History of CVA (cerebrovascular accident) Priority: Secondary Status: Acute (5) Diabetes mellitus, type 2 Priority: Secondary Status: Chronic Qualifiers: Diabetes mellitus skilled nursing insulin use: without skilled nursing use Diabetes mellitus complication status: with kidney complications Diabetes mellitus complication detail: with chronic kidney disease Chronic kidney disease stage: stage 3 (moderate) Qualified Code(s): E11.22 - Type 2 diabetes mellitus with diabetic chronic kidney disease; N18.3 - Chronic kidney disease, stage 3 (moderate) (6) Essential hypertension Priority: Secondary Status: Chronic Hospital course: Mr. 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 Some history of hypoglycemia at the skilled nursing and hypoxia. Patient admitted under observation. No overnight events happened patient slightly more alert oriented and oriented today. Head CT was unremarkable except chronic changes from his previous CVA. No signs of infection. No telemetry unit events and showed atrial fibrillation rate controlled. No seizure-like activity noted. Patient has baseline significant cognitive deficit and dementia. Possible component of hypoglycemia causing altered mental status. Currently back to baseline and will be discharged to skilled nursing for further care. His insulin regimen was decreased with his sugar levels being controlled. We will need to monitor glucose closely on discharge. Discharge discussed with: patient, nurse (35) - Time Spent with Patient Total time spent providing and/or coordinating discharge services: Greater than 30 minutes - Discharge Medications Home Medications: Lisinopril [Zestril] 2.5 mg PO DAILY 06/05/17 [History] Metoprolol [Lopressor] 25 mg PO BID 06/05/17 [History] Terazosin [Hytrin] 1 mg PO DAILY 06/05/17 [History] Apixaban [Eliquis] 5 mg PO BID 10/14/17 [History] Cyanocobalamin (Vitamin B-12) [Vitamin B12] 1,000 mcg PO DAILY 10/14/17 [History] Cholecalciferol (Vitamin D3) [Vitamin D3] 1,000 mg PO DAILY 05/17/18 [History] Metformin HCl [Metformin HCl ER] 500 mg PO BID 05/17/18 [History] Naproxen Sodium 550 mg PO BID 05/17/18 [History] Paroxetine HCl [Paxil] 20 mg PO DAILY 05/17/18 [History] Aspirin Enteric Coated [Aspirin EC] 81 mg PO DAILY tablet. 05/23/18 [Rx] Atorvastatin [Lipitor] 40 mg PO HS tablet 08/10/18 [Rx] Insulin Glargine,Hum.rec.anlog [Lantus Solostar] 10 unit SQ HS #0 08/10/18 [Rx] Allergies/Adverse Reactions: Allergy/AdvReac Type Severity Reaction Status Date / Time IV Contrast Allergy Anaphylaxis Uncoded 10/14/17 15:15 Date of admission: 08/09/18 16:05 Primary care physician: [facility] Discharging clinician: Kinza Armenta - Constitutional Vitals: Temp Pulse Resp BP Pulse Ox 97.4 F L 67 16 124/67 96 08/10/18 11:23 08/10/18 11:23 08/10/18 11:23 08/10/18 11:23 08/10/18 11:23 General appearance: Present: no acute distress Exam: Constitutional: Vitals as noted. Conversant but confused. No Apparent Distress. No obvious deformities. Obese Eyes : Sclera white, conjunctiva clear, no lid lag, PEARLA. ENT : Grossly normal hearing. Oropharyngeal exam unremarkable. Moist mucus membranes. No JVD, no cervical lymphadenopathy. no thyromegaly or mass. Respiratory : Clear to auscultation bilaterally. No accessory muscle use, rales, rhonchi or wheezes Cardiovascular : Irregular, +S1, +S2, no murmur, gallop, rubs. No chest wall tenderness GI/Abdominal : Soft, Non-tender, mildly distended, Obese, normal bowel sounds, soft, no peritoneal signs. no orgenomegaly or mass appreciated. Musculoskeletal: no deformity noted. no edema or cyanosis. warm extremities, pulses palpable and symmetrical in UE/LE. no calf tenderness. Neurological: AO X1, CN II-XII intact, 5/5 in UE and LE. No sensory deficits. Following commands. Did not assess gait Skin: No skin rash, lesions or ulcers noted. Pych: Able to tell his name. Does not appear to have hallucination. Memory impaired. Judgement not intact. Confabulates and answers to question he wants. - Patient Status Disposition: Transfer SNF - Discharge Instructions [facility]: [facility] [Primary Care Provider[facility] - - Diet and Activity Activity: resume usual activities as tolerated
--- NOTE | 2018-08-13 15:41 | Electrocardiograph Report ---
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
== END 2018-08-10 13:22 ==
LOC: EMEROOARM 14:08 → 3BNU 14:08
PROVIDERS: ADMIT Internal Medicine; ATTEND Internal Medicine